=== PATIENT | female | born 1940 | race Caucasian/White ===

== ENCOUNTER → 2016-10-10 | Day surgery (SDC) | payer OTHER ==
[~2016-10-10] MED LIST: AMOX500T2 PO; ASPI325T10 OR; AUGM500T7 PO; BACITRACIN IM FOR SOLN 50,000 UNIT VIAL ONE; BUPIVACAINE HCL PF 0.75% 30 ML VIAL ONE; CALC1TAB12 PO; CALCTAB23 PO; CHOL20005 PO; CLOP75 PO; DOXY100C PO; ENBR50IN3 SC; GENTAMICIN SULFATE 80 MG/2 ML VIAL ONE; HYDR12.56 PO; HYDROCODONE 5/500 PO; LACTATED RINGER'S 1000 ML INJ 1,000 ML ONE; LEFL10TA PO; LEFL20TA11 PO; LEVO100T4 PO; LEVO75TA3 PO; LIDOCAINE 1.5%/EPINEPHrine 1:200,000 PF SOLN 30 ML AMP ONE; LIPI40TA PO; METO25 PO; METO25TA3 PO; MIDAZOLAM HCL 5 MG/ML VIAL (1 ML) ONE; ONCETAB7; PLAV75TA29 PO; PROPOFOL 200 MG/20 ML AMP IV ONE; PROT40TA PO; SODIUM CHLORIDE 0.9% 20 ML VIAL ONE; SUCR1TAB PO; TAB-TAB PO; VITA-13 PO; VITA10002 PO; ZOLP5TAB3 PO; ceFAZolin INJ 1,000 MG VIAL ONE
--- NOTE | 2016-10-10 08:34 | TN ---
cc: SANDRA HALL M.D. DATE OF SURGERY: 10/10/2016 PREOPERATIVE DIAGNOSIS 1. Right shoulder rotator cuff tendon tear. 2. Right shoulder impingement syndrome, type II acromion. 3. Right shoulder osteoarthritis of acromioclavicular joint. POSTOPERATIVE DIAGNOSIS 1. Right shoulder rotator cuff tendon tear. 2. Right shoulder impingement syndrome, type II acromion. 3. Right shoulder osteoarthritis of acromioclavicular joint. PROCEDURE 1. Right shoulder rotator cuff tendon repair. 2. Neer decompressive acromioplasty. 3. Excision coracoacromial ligament. 4. Resection acromioclavicular joint. SURGEON Arely Hall MD ASSESSMENT Gwen Alvarez PA-C SPECIMEN None. ESTIMATED BLOOD LOSS Minimal. COMPLICATIONS None. ANESTHESIA Interscalene block and general. DRAINS None. CONDITION Stable. PLAN OF ACTIVITY Per orders. DETAILS OF PROCEDURE My speech therapy assistant, Gwen Alvarez PA-C, was present for the entire surgical case. She was medically necessary for the entire case because of the complexity of the case and to facilitate the performance of the procedure. The SNOWBOARDER at the back table did not have the skill set in this case to manipulate the instruments, e.g., the multiple different soft tissue retractors and rotator cuff tendon suturing material with assistance. The patient was brought into the operating room, had an interscalene block by Dr. Quezada followed by general anesthesia by Dr. Quezada. The patient was placed in a modified beach-chair position. All pressure points were well-padded. The right shoulder and upper extremity down to including the fingers were prepped and draped in the usual sterile manner. A small anterior exposure to the right anterior shoulder was made. All bleeders were individually coagulated. The tendinous portion of the deltoid was removed off of the acromion. The patient was found to have a type II acromion. With the cervical impingement and osteoarthritis of the acromioclavicular joint, excision of the coracoacromial ligament was performed. An oscillating saw and a bur were then used to perform a Neer decompressive acromioplasty. Resection of the distal clavicle and the AC joint was also performed. With this the patient was found to have satisfactory decompression of the subacromial space. The patient was found to have a longitudinal tear involving the supraspinatus tendon. A [id number] repair was used with multiple #2 Tycron sutures. The wound was irrigated with copious amounts of sterile saline antibiotic solution. The wound itself was dry. The wound was closed in the routine manner. Multiple drill holes were used in the acromion and the tendinous portion of the deltoid repaired back to the acromion using multiple #2 Tycron sutures. The subcutaneous tissue was closure in layers with 2-0 Vicryl. Skin was approximated with running subcuticular 2-0 nylon. Sterile dressings were applied. The patient tolerated the procedure well and arrived in the recovery room in stable and satisfactory condition. MD WILMER Simpson/SILVESTRE /8:13 AM /8:19 AM
== END | disposition home or self-care (01) ==
LOC: ESDC 06:04
PROVIDERS: ATTEND Orthopaedic Surgery Orthopaedic Surgery of the Spine
DX: M75.111 Incomplete rotator cuff tear or rupture of right shoulder, not specified as traumatic (principal); M75.41 Impingement syndrome of right shoulder; M19.011 Primary osteoarthritis, right shoulder
CPT/HCPCS: 00450; 01630; 01991; 23120; 23420; 64417; J0690; J1580; J2250; J7120

== ENCOUNTER 2017-03-20 14:01 | Inpatient (IN) | payer OTHER, MEDICARE ==
[~2017-03-20] VITALS: Ht 160 cm; Wt 67.5 kg
[2017-03-20] VITALS (8 sets, daily range): BP systolic 104–125; BP diastolic 57–79; PULSE 77–98; RESP 16–20; TEMP 98–98.1; O2SAT 92–100
[~2017-03-20 14:01] MED LIST changes: -AMOX500T2 PO; -AUGM500T7 PO; -BACITRACIN IM FOR SOLN 50,000 UNIT VIAL ONE; -BUPIVACAINE HCL PF 0.75% 30 ML VIAL ONE; -CALC1TAB12 PO; -CHOL20005 PO; -DOXY100C PO; -GENTAMICIN SULFATE 80 MG/2 ML VIAL ONE; -LACTATED RINGER'S 1000 ML INJ 1,000 ML ONE; -LEFL20TA11 PO; -LEVO75TA3 PO; -LIDOCAINE 1.5%/EPINEPHrine 1:200,000 PF SOLN 30 ML AMP ONE; -METO25TA3 PO; -MIDAZOLAM HCL 5 MG/ML VIAL (1 ML) ONE; -ONCETAB7; -PLAV75TA29 PO; -PROPOFOL 200 MG/20 ML AMP IV ONE; -SODIUM CHLORIDE 0.9% 20 ML VIAL ONE; -ceFAZolin INJ 1,000 MG VIAL ONE
[2017-03-20] MEDS ORDERED: SODIUM CHLOR 0.9% 1000 ML INJ 1,000 ML IV ONE ×2 (14:45)
[2017-03-20] MEDS ORDERED: AMPICILLIN-SULBACTAM INJ 3 GM in SODIUM CHLORIDE 0.9% INJ 100 ML IV ONE (14:45)
[2017-03-20] MEDS ORDERED: VANCOMYCIN INJ 1,000 MG in SODIUM CHLOR 0.9% 250 ML INJ 250 ML IV ONE (14:45)
[2017-03-20] MEDS ORDERED: LIDOCAINE HCL 1% 50 ML VIAL INFIL ONE (15:00)
[2017-03-20 15:19] LABS: AUTOMATED NEUTROPHIL # 7.2 TH/MM3 (1.8-7.7); BASOPHIL % 0.2 % (0.0-2.0); EOSINOPHIL % 0.2 % (0.0-4.0); HEMATOCRIT 35.6 % (35.0-46.0); LYMPH % 8.4 % (9.0-44.0); LYMPHOCYTE # 0.7 TH/MM3 (1.0-4.8); MEAN CELL VOLUME 104.8 FL (80.0-100.0); MEAN CORPUSCULAR HEMOGLOBIN 36.3 PG (27.0-34.0); MEAN CORPUSCULAR HGB CONC 34.6 % (32.0-36.0); MONO % 2.2 % (0.0-8.0); PLATELET COUNT 158 TH/MM3 (150-450); RED CELL DISTRIBUTION WIDTH 12.5 % (11.6-17.2); WHITE BLOOD COUNT 8.1 TH/MM3 (4.0-11.0)
[2017-03-20 15:29] LABS: CHLORIDE 103 MEQ/L (98-107); POTASSIUM 3.5 MEQ/L (3.5-5.1); SODIUM (NA) 141 MEQ/L (136-145)
[2017-03-20] MEDS ORDERED: TERBUTALINE INJ 1 MG/ML AMP SQ PRN (15:30)
[2017-03-20] MEDS ORDERED: NOREPINEPHRINE-DEXTROSE DRIP 250 ML IV SCH (15:30)
[2017-03-20 15:33] LABS: ANION GAP 12 MEQ/L (5-15); BICARBONATE 26.1 MEQ/L (21.0-32.0); BLOOD UREA NITROGEN 32 MG/DL (7-18)
--- NOTE | 2017-03-20 15:34 | PD ---
HPI Chief Complaint: Bite or Sting Time Seen by Provider: 14:37 Travel History International Travel<30 days: No Contact w/Intl Traveler<30days: No Traveled to known affect area: No History of Present Illness HPI 76-year-old female complains of right leg pain and swelling and redness. Patient states that she got bitten by her cat on the right low leg 3 days ago. Patient states that she noticed the pain swelling and redness on the right leg today. Patient denies any fever chills at home. Patient denies headache. Patient denies any chest pain or shortness of breath. Patient denies abdominal pain. Patient denies any focal weakness or numbness of extremity. Patient has history of peripheral vascular disease, type 2 diabetes diet controlled, hypertension. Patient also has history of hyperlipidemia, hypothyroidism, GERD , chronic anemia, rheumatoid arthritis. She is status post right fem pop bypass , hysterectomy, knee surgery, ankle surgery shoulder surgery and adrenal gland removed. PFSH Past Medical History Arthritis: Yes Asthma: No Autoimmune Disease: Yes (RA) Blood Disorders: No Anxiety: Yes Depression: No Cancer: No Cardiovascular Problems: No (HIGH CHOLESTEROL) High Cholesterol: Yes Chemotherapy: No Chest Pain: No Congestive Heart Failure: No COPD: No Cerebrovascular Accident: No Diabetes: Yes (TYPE II) Diminished Hearing: No Endocrine: Yes GERD: Yes Glaucoma: No Genitourinary: No Headaches: No Hepatitis: No Hiatal Hernia: No Hypertension: Yes Immune Disorder: No Kidney Stones: No Musculoskeletal: Yes (OA AND RA, BACK PAIN) Neurologic: No (TRANSIENT NUMBNESS RIGHT LEG) Psychiatric: Yes (CLAUSTRAPHOBIA) Reproductive: No Respiratory: No Migraines: No Myocardial Infarction: No Radiation Therapy: No Renal Failure: No Seizures: No Sleep Apnea: No Thyroid Disease: Yes Ulcer: Yes ?: Not Past Surgical History Abdominal Surgery: Yes AICD: No Arteriovenous Shunt: No Body Medical Devices: RIGHT ANKLE HARDWARE Cardiac Surgery: Yes (RIGHT LEG VEINS) Ear Surgery: No Endocrine Surgery: Yes (LEFT ADRENALECTOMY) Eye Surgery: Yes (CLAUDIA. CATARACT EXTRACT.) Genitourinary Surgery: No Gynecologic Surgery: Yes (HYSTERECTOMY ) Hysterectomy: Yes Insulin Pump: No Joint Replacement: Yes (LEFT SHOULDER) Oral Surgery: No Pacemaker: No Thoracic Surgery: No Other Surgery: Yes Social History Alcohol Use: No Tobacco Use: No Substance Use: No Allergies-Medications (Allergen,Severity, Reaction): Coded Allergies: Lisinopril (Verified Allergy, Severe, ANGIOEDEMA, 03/20/17) Shellfish (Verified Allergy, Severe, Edema, 03/20/17) Reported Meds & Prescriptions Reported Meds & Active Scripts Active Reported Zolpidem (Zolpidem Tartrate) 5 Mg Tab 5 Mg PO HS PRN Sucralfate 1 Gm Tab 1 Gm PO QID on empty stomach Once Daily (Multivitamin) 1 Each Tablet Protonix (Pantoprazole Sodium) 40 Mg Tab 40 Mg PO BID Hydrochlorothiazide 12.5 Mg Tab 12.5 Mg PO DAILY Metoprolol Tartrate 25 Mg Tab 12.5 Mg PO BID Levothyroxine (Levothyroxine Sodium) 75 Mcg Tab 75 Mcg PO DAILY Leflunomide 10 Mg Tab 10 Mg PO DAILY D3 Super Strength (Cholecalciferol) 2,000 Unit Cap 2,000 Units PO DAILY Calcium 500 +D (Calcium Carbonate-Cholecalciferol) 500-400 Mg-Unit Tab 1 Tab PO DAILY Lipitor (Atorvastatin Calcium) 40 Mg Tab 40 Mg PO HS Plavix (Clopidogrel Bisulfate) 75 Mg Tab 75 Mg PO DAILY [Hydrocodone 5/500] 1 Tab PO PRN Review of Systems General / Constitutional: No: Fever Eyes: No: Visual changes HENT: No: Headaches Cardiovascular: No: Chest Pain or Discomfort Respiratory: No: Shortness of Breath Gastrointestinal: No: Abdominal Pain Genitourinary: No: Dysuria Musculoskeletal: Positive: Pain Skin: No Rash Neurologic: No: Weakness Psychiatric: No: Depression Endocrine: No: Polydipsia Hematologic/Lymphatic: No: Easy Bruising Physical Exam Narrative GENERAL: Well-nourished, well-developed patient. SKIN: Focused skin assessment warm/dry. HEAD: Normocephalic. EYES: No scleral icterus. No injection or drainage. NECK: Supple, trachea midline. No JVD or lymphadenopathy. CARDIOVASCULAR: Regular rate and rhythm without murmurs, gallops, or rubs. RESPIRATORY: Breath sounds equal bilaterally. No accessory muscle use. GASTROINTESTINAL: Abdomen soft, non-tender, nondistended. MUSCULOSKELETAL: Patient has redness swelling tenderness extending from the toes to right groin area with some redness on the right low quadrant of the abdomen and right pubic area. No crepitus no induration noted. BACK: Nontender without obvious deformity. No CVA tenderness. Neurologic exam: Patient's awake alert oriented 3. Patient moves all extremities well. No obvious focal neurological deficit. Data Data Last Documented VS Vital Signs Date Time Temp Pulse Resp B/P Pulse Ox O2 Delivery O2 Flow Rate FiO2 03/20/17 15:29 18 99 Nasal Cannula 2 03/20/17 14:56 82 125/68 03/20/17 14:16 98.0 Orders Electrocardiogram (03/20/17 14:37) Complete Blood Count With Diff (03/20/17 14:37) Comprehensive Metabolic Panel (03/20/17 14:37) Prothrombin Time / Inr (Pt) (03/20/17 14:37) Act Partial Throm Time (Ptt) (03/20/17 14:37) Blood Culture (03/20/17 14:37) Urinalysis - C+S If Indicated (03/20/17 14:37) Chest, Single Ap (03/20/17 14:37) Iv Access Insert/Monitor (03/20/17 14:37) Ecg Monitoring (03/20/17 14:37) Oximetry (03/20/17 14:37) Lactic Acid (03/20/17 14:37) Sodium Chlor 0.9% 1000 Ml Inj (Ns 1000 M (03/20/17 14:45) Sodium Chlor 0.9% 1000 Ml Inj (Ns 1000 M (03/20/17 14:45) Ampicillin-Sulbactam Inj (Unasyn Inj) (03/20/17 14:45) Vancomycin Inj (Vancomycin Inj) (03/20/17 14:45) Lidocaine 1% Inj (50 Ml) (Xylocaine 1% I (03/20/17 15:00) Norepinephrine-Dextrose Drip (Levophed-D (03/20/17 15:30) Terbutaline Inj (Brethine Inj) (03/20/17 15:30) Lactic Acid Sepsis Protocol (03/20/17 15:20) Admit Order (Ed Use Only) (03/20/17 15:34) Labs Laboratory Tests Test 03/20/17 15:05 White Blood Count 8.1 TH/MM3 Red Blood Count 3.40 MIL/MM3 Hemoglobin 12.3 GM/DL Hematocrit 35.6 % Mean Corpuscular Volume 104.8 FL Mean Corpuscular Hemoglobin 36.3 PG Mean Corpuscular Hemoglobin 34.6 % Concent Red Cell Distribution Width 12.5 % Platelet Count 158 TH/MM3 Mean Platelet Volume 8.6 FL Neutrophils (%) (Auto) 89.0 % Lymphocytes (%) (Auto) 8.4 % Monocytes (%) (Auto) 2.2 % Eosinophils (%) (Auto) 0.2 % Basophils (%) (Auto) 0.2 % Neutrophils # (Auto) 7.2 TH/MM3 Lymphocytes # (Auto) 0.7 TH/MM3 Monocytes # (Auto) 0.2 TH/MM3 Eosinophils # (Auto) 0.0 TH/MM3 Basophils # (Auto) 0.0 TH/MM3 CBC Comment DIFF FINAL Differential Comment Prothrombin Time 10.7 SEC Prothromb Time International 1.0 RATIO Ratio Activated Partial 18.8 SEC Thromboplast Time Sodium Level 141 MEQ/L Potassium Level 3.5 MEQ/L Chloride Level 103 MEQ/L Carbon Dioxide Level 26.1 MEQ/L Anion Gap 12 MEQ/L Blood Urea Nitrogen 32 MG/DL Creatinine 1.20 MG/DL Estimat Glomerular Filtration 44 ML/MIN Rate Random Glucose 146 MG/DL Lactic Acid Level 2.1 mmol/L Calcium Level 9.0 MG/DL Total Bilirubin 0.6 MG/DL Aspartate Amino Transf 22 U/L (AST/SGOT) Alanine Aminotransferase 25 U/L (ALT/SGPT) Alkaline Phosphatase 64 U/L Total Protein 5.8 GM/DL Albumin 3.5 GM/DL MDM Medical Decision Making Medical Screen Exam Complete: Yes Emergency Medical Condition: Yes Differential Diagnosis Differential diagnosis including sepsis, cellulitis, abscess, necrotizing fasciitis. Narrative Course 76-year-old female with redness swelling tenderness right leg. Status post cat bite 3 days ago. Patient is septic. Normal saline solution 2 L IV bolus. Vancomycin 1 g IV. Unasyn 3 g IV. Critical Care Narrative Aggregate critical care time was 60 minutes. Time to perform other separately billable procedures was not included in the critical care time. My time did not include minutes spent treating any other patients simultaneously or on activities that did not directly contribute to the patient's treatment. The services I provided to this patient were to treat and/or prevent clinically significant deterioration that could result in: I provided critical care services requiring my management, as noted below: Chart data review, documentation time, medication orders and management, vital sign assessments/reviewing monitor data, ordering and reviewing lab tests, ordering and interpreting/reviewing x-rays and diagnostic studies, care of the patient and discussion of the patient with the admitting physicians. Procedures Procedure Narrative CENTRAL VENOUS LINE: The site was prepped with Betadine and sterilely draped. It was infiltrated with 1% lidocaine plain. The deep vein was cannulated using normal Seldinger technique. A triple lumen central line was placed in the [ left femoral vein site and secured with simple interrupted suture. The site was sterilely dressed. The patient tolerated the procedure well. Diagnosis Primary Impression: Severe sepsis Additional Impression: Cellulitis of right leg Admitting Information Admitting Physician Requests: Admit Blake Lehman MD Mar 20, 2017 15:34
[2017-03-20 15:36] LABS: ALT (GPT) 25 U/L (10-53); AST (GOT) 22 U/L (15-37); GLOMERULAR FILTRATION RATE 44 ML/MIN (>89)
[2017-03-20 15:38] LABS: TOTAL BILIRUBIN ADULT 0.6 MG/DL (0.2-1.0)
[2017-03-20 15:39] LABS: ALKALINE PHOSPHATASE 64 U/L (45-117)
[2017-03-20 15:42] LABS: HEMO FLAGS DIFF FINAL
[2017-03-20] MEDS ORDERED: PLAV75TA29 PO (15:42)
[2017-03-20] MEDS ORDERED: LIPI40TA PO (15:42)
[2017-03-20] MEDS ORDERED: PROT40TA PO (15:42)
[2017-03-20] MEDS ORDERED: CHOL20005 PO (15:42)
[2017-03-20] MEDS ORDERED: LEVO75TA3 PO (15:42)
[2017-03-20] MEDS ORDERED: SUCR1TAB PO (15:42)
[2017-03-20] MEDS ORDERED: ONCETAB7 (15:42)
[2017-03-20] MEDS ORDERED: LEFL20TA11 PO (15:42)
[2017-03-20] MEDS ORDERED: CALC1TAB12 PO (15:42)
[2017-03-20] MEDS ORDERED: HYDR12.56 PO (15:42)
[2017-03-20] MEDS ORDERED: METO25TA3 PO (15:42)
[2017-03-20] MEDS ORDERED: ZOLP5TAB3 PO (15:42)
--- NOTE | 2017-03-20 16:05 | RADHPO ---
EXAM DATE/TIME: 03/20/2017 15:35 [facility] COMPARISON: CHEST SINGLE AP, February 17, 2015, 11:50. INDICATIONS : Patient was bitten by her cat two days ago and has right leg and ankle pain. Patient is stating short ness of breath also. MEDICAL HISTORY : None. SURGICAL HISTORY : None. ENCOUNTER: Initial ACUITY: 2 days PAIN SCORE: 10/10 LOCATION: Right Leg and ankle. FINDINGS: A single view of the chest demonstrates the lungs to be symmetrically aerated without evidence of mas s, infiltrate or effusion. The cardiomediastinal contours are unremarkable. Redemonstration of left shoulder arthroplasty. Bony thorax otherwise intact. CONCLUSION: 1. No acute cardiopulmonary disease. Tommy Schuster MD on March 20, 2017 at 16:02 Board Certified Radiologist. This report was verified electronically.
[2017-03-20 16:06] LABS: APTT (PATIENT) 18.8 SEC (24.3-30.1); PROTHROMBIN TIME - PATIENT 10.7 SEC (9.8-11.6)
[2017-03-20 16:53] LABS: BLOOD, URINE NEG (NEG); GLUCOSE,URINE NEG (NEG); KETONE, URINE TRACE mg/dL (NEG); NITRITE,URINE NEG (NEG); PH, URINE 5.5 (5.0-8.5)
[2017-03-20 17:07] LABS: SQUAMOUS EPITHELIAL CELL URINE 0-5 /hpf (0-5); URINE COLOR YELLOW (YELLW/STRAW)
[2017-03-20 17:08] LABS: BACTERIA, URINE MANY /hpf; COMMENT (UR) CULTURE INDICATED; CULTURE IF INDICATED CULTURE INDICATED
[2017-03-20] MEDS: SODIUM CHLOR 0.9% 1000 ML INJ 1,000 ML IV SCH (17:11)
--- NOTE | 2017-03-20 17:11 | HHI.HP ---
[facility] Service Critical Care Medicine Primary Care Physician Non-Staff Admission Diagnosis sepsis. Right leg cellulitis. Diagnosis: Travel History International Travel<30 Days: No Contact w/Intl Traveler <30 Da: No Traveled to Known Affected Are: No History of Present Illness 76-year-old female complains of right leg pain and swelling and redness. Patient states that she got bitten by her cat on the right lower leg 3 days ago. Patient states that she noticed the pain swelling and redness on the right leg today. Patient denies any fever chills at home. Patient denies headache. Patient denies any chest pain or shortness of breath. Patient denies abdominal pain. Patient denies any focal weakness or numbness of extremity. Patient has history of peripheral vascular disease, type 2 diabetes diet controlled, hypertension. Patient also has history of hyperlipidemia, hypothyroidism, GERD, chronic anemia, rheumatoid arthritis. She is status post right fem pop bypass, hysterectomy, knee surgery, ankle surgery shoulder surgery and adrenal gland removal. Upon entering the ED, the patient was noted to have 2+ peripheral edema and hyperemia from the right foot to the right groin femoral area , no lymphadenopathy noted, with extreme tenderness. Critical care medicine was consulted. [facility] Past Medical History Arthritis: Yes Asthma: No Autoimmune Disease: Yes (RA) Blood Disorders: No Anxiety: Yes Depression: No Cancer: No Cardiovascular Problems: No (HIGH CHOLESTEROL) High Cholesterol: Yes Chemotherapy: No Chest Pain: No Congestive Heart Failure: No COPD: No Cerebrovascular Accident: No Diabetes: Yes (TYPE II) Diminished Hearing: No Endocrine: Yes GERD: Yes Glaucoma: No Genitourinary: No Headaches: No Hepatitis: No Hiatal Hernia: No Hypertension: Yes Immune Disorder: No Kidney Stones: No Musculoskeletal: Yes (OA AND RA, BACK PAIN) Neurologic: No (TRANSIENT NUMBNESS RIGHT LEG) Psychiatric: Yes (CLAUSTRAPHOBIA) Reproductive: No Respiratory: No Migraines: No Myocardial Infarction: No Radiation Therapy: No Renal Failure: No Seizures: No Sleep Apnea: No Thyroid Disease: Yes Ulcer: Yes ?: Not Past Surgical History Abdominal Surgery: Yes AICD: No Arteriovenous Shunt: No Body Medical Devices: RIGHT ANKLE HARDWARE Cardiac Surgery: Yes (RIGHT LEG VEINS) Ear Surgery: No Endocrine Surgery: Yes (LEFT ADRENALECTOMY) Eye Surgery: Yes (CLAUDIA. CATARACT EXTRACT.) Genitourinary Surgery: No Gynecologic Surgery: Yes (HYSTERECTOMY ) Hysterectomy: Yes Insulin Pump: No Joint Replacement: Yes (LEFT SHOULDER) Oral Surgery: No Pacemaker: No Thoracic Surgery: No Other Surgery: Yes Social History Alcohol Use: No Tobacco Use: No Substance Use: No Allergies-Medications (Allergen,Severity, Reaction): Coded Allergies: Lisinopril (Verified Allergy, Severe, ANGIOEDEMA, 03/20/17) Shellfish (Verified Allergy, Severe, Edema, 03/20/17) Reported Meds & Prescriptions Reported Meds & Active Scripts Active Reported Zolpidem (Zolpidem Tartrate) 5 Mg Tab 5 Mg PO HS PRN Sucralfate 1 Gm Tab 1 Gm PO QID on empty stomach Once Daily (Multivitamin) 1 Each Tablet Protonix (Pantoprazole Sodium) 40 Mg Tab 40 Mg PO BID Hydrochlorothiazide 12.5 Mg Tab 12.5 Mg PO DAILY Metoprolol Tartrate 25 Mg Tab 12.5 Mg PO BID Levothyroxine (Levothyroxine Sodium) 75 Mcg Tab 75 Mcg PO DAILY Leflunomide 10 Mg Tab 10 Mg PO DAILY D3 Super Strength (Cholecalciferol) 2,000 Unit Cap 2,000 Units PO DAILY Calcium 500 +D (Calcium Carbonate-Cholecalciferol) 500-400 Mg-Unit Tab 1 Tab PO DAILY Lipitor (Atorvastatin Calcium) 40 Mg Tab 40 Mg PO HS Plavix (Clopidogrel Bisulfate) 75 Mg Tab 75 Mg PO DAILY [Hydrocodone 5/500] 1 Tab PO PRN Review of Systems General / Constitutional: No: Fever Eyes: No: Visual changes HENT: No: Headaches Cardiovascular: No: Chest Pain or Discomfort Respiratory: No: Shortness of Breath Gastrointestinal: No: Abdominal Pain Genitourinary: No: Dysuria Musculoskeletal: Positive: Pain Skin: No Rash Neurologic: No: Weakness Psychiatric: No: Depression Endocrine: No: Polydipsia Hematologic/Lymphatic: No: Easy Bruising Past Family Social History Allergies: Coded Allergies: Lisinopril (Verified Allergy, Severe, ANGIOEDEMA, 03/20/17) Shellfish (Verified Allergy, Severe, Edema, 03/20/17) Physical Exam Vital Signs Vital Signs Date Time Temp Pulse Resp B/P Pulse Ox O2 Delivery O2 Flow Rate FiO2 03/20/17 15:45 77 18 124/71 100 Room Air 2 03/20/17 15:29 18 99 Nasal Cannula 2 03/20/17 14:56 82 20 125/68 92 Room Air 03/20/17 14:16 98.0 84 16 117/79 Laboratory Laboratory Tests Test 03/20/17 15:05 White Blood Count 8.1 Red Blood Count 3.40 Hemoglobin 12.3 Hematocrit 35.6 Mean Corpuscular Volume 104.8 Mean Corpuscular Hemoglobin 36.3 Mean Corpuscular Hemoglobin 34.6 Concent Red Cell Distribution Width 12.5 Platelet Count 158 Mean Platelet Volume 8.6 Neutrophils (%) (Auto) 89.0 Lymphocytes (%) (Auto) 8.4 Monocytes (%) (Auto) 2.2 Eosinophils (%) (Auto) 0.2 Basophils (%) (Auto) 0.2 Neutrophils # (Auto) 7.2 Lymphocytes # (Auto) 0.7 Monocytes # (Auto) 0.2 Eosinophils # (Auto) 0.0 Basophils # (Auto) 0.0 CBC Comment DIFF FINAL Differential Comment Prothrombin Time 10.7 Prothromb Time International 1.0 Ratio Activated Partial 18.8 Thromboplast Time Sodium Level 141 Potassium Level 3.5 Chloride Level 103 Carbon Dioxide Level 26.1 Anion Gap 12 Blood Urea Nitrogen 32 Creatinine 1.20 Estimat Glomerular Filtration 44 Rate Random Glucose 146 Lactic Acid Level 2.1 Calcium Level 9.0 Total Bilirubin 0.6 Aspartate Amino Transf 22 (AST/SGOT) Alanine Aminotransferase 25 (ALT/SGPT) Alkaline Phosphatase 64 Total Protein 5.8 Albumin 3.5 Date/Time Procedure Status Source Growth 03/20/17 15:05 Aerobic Blood Culture Received Blood Peripheral Pending 03/20/17 15:05 Anaerobic Blood Culture Received Blood Peripheral Pending Result Diagram: 03/20/17 1505 03/20/17 1505 Imaging Last Impressions Chest X-Ray 03/20/17 1437 Signed Impressions: Service Date/Time: March 15:35 - CONCLUSION: 1. No acute cardiopulmonary disease. Tommy Schuster MD Septic Shock Reassessment Heart: Regular rate and rhythm Lungs: Clear Skin: Warm Peripheral Pulses: Bounding Right Radial Bounding Left Radial Bounding Left Popliteal Assessment and Plan Assessment and Plan Neurologic: Peripheral neuropathy Right lower extremity pain Paresthesias-right lower extremity Chronic back pain Osteoarthritis Rheumatoid arthritis Scoliosis GCS 15 Continue hydrocodone 5/325 Continue Leflunomide Dilaudid 1 mg every 4 hours PRN for breakthrough pain Respiratory: History of tobacco abuse COPD Maintain O2 sat greater than 92%, patient currently on O2 at 2 L nasal cannula, continue to wean Duo nebs every 4 hours PRN wheezing 03/20 chest x-ray-no acute process Cardiovascular: Peripheral vascular disease Status post bypass left lower extremity Hypertension Maintain MAP greater than 65 mmHg, norepinephrine for vasopressors support if indicated Continue home medication Plavix, and atorvastatin Continue home med hydrochlorothiazide and metoprolol Renal: Renal insufficiency Patient bolused with 2 L IV fluid normal saline in the ED Maintenance fluid normal saline 125/hour Creatinine 1.2, GFR 44 Insert Wells -- Strict I/Os FEN/GI: GERD Hyperlipidemia Monitor BMP Maintain NPO status tonight Bowel regimen Zofran for nausea Obtain LFTs Heme/ID: Severe sepsis Right lower extremity cellulitis Cat bite right lower extremity Obtain blood cultures 2 ID consult Patient received 1 g vancomycin, 3 g Unasyn in the ED Patient placed on vancomycin and levofloxacin Endocrine: Diabetes mellitus type 2 Hypothyroidism Continue Synthroid 75 mcgs/day Glucose monitoring per ICU protocol Low dose sliding scale regimen -- SSI Prophylaxis: GI Prophylaxis Protonix DVT Prophylaxis -- SCDs left leg Heparin BID Lines: Left femoral CVL (day 1), peripheral IVs 2 Dispo: This patient remains critically ill with one or more organ systems which are or may become a threat to life. I have spent in excess of 35 minutes discontinuously in the care and management of this patient. This time is exclusive of procedures, and includes, but is not limited to, evaluation of the patient, review of the medical record, discussions with family, consultants, nursing staff, or respiratory therapy, and documentation in the medical record. Code Status Full Discussed Condition With Dr. Lehman, ED physician, ED RN, patient and family at bedside. Halima Thompson MD Mar 20, 2017 17:10
[2017-03-20] MEDS ORDERED: MAGNESIUM HYDROXIDE SUSP 30 ML CUP PO PRN (17:15)
[2017-03-20] MEDS ORDERED: MISCELLANEOUS NURSING INFORMATION XX SCH (17:15)
[2017-03-20] MEDS ORDERED: BISACODYL 10 MG SUPP RECTAL PRN (17:15)
[2017-03-20] MEDS ORDERED: Vancomycin Consult Pharmacy 1 EA OTHER SCH (17:15)
[2017-03-20] MEDS ORDERED: CHLORHEXIDINE GLUCONATE 2 % 1 PACK (2 CLOTHS) TOP PRN (17:15)
[2017-03-20] MEDS ORDERED: DEXTROSE 50% IN WATER 50 ML VIAL(D50) IV PRN (17:15)
[2017-03-20] MEDS ORDERED: SODIUM CHLORIDE 0.9% FLUSH 10 ML FLUSH IV FLUSH PRN ×2 (17:15)
[2017-03-20] MEDS ORDERED: GLUCAGON 1 MG/ML VIAL OTHER PRN (17:15)
[2017-03-20] MEDS ORDERED: SENNOSIDES 8.6 MG TAB PO PRN (17:15)
[2017-03-20] MEDS ORDERED: ACETAMINOPHEN 325 MG TAB PO PRN (17:15)
[2017-03-20] MEDS ORDERED: RESP: ALBUTEROL 2.5 MG/IPRATROPIUM 0.5 MG NEB (PRN) INH (17:15)
[2017-03-20] MEDS ORDERED: ACETAMINOPHEN/HYDROcodone 325 MG/5 MG TAB PO PRN (18:00)
[2017-03-20] MEDS ORDERED: PILL SPLITTER OTHER PRN (18:00)
[2017-03-20 18:21] LABS: TOTAL BILIRUBIN ADULT 0.6 MG/DL (0.2-1.0)
[2017-03-20] MEDS: HEPARIN SODIUM - SQ 10,000 UNITS/ML VIAL SQ SCH (18:24)
[2017-03-20] MEDS: LEVOFLOXACIN 750 MG PREMIX INJ 150 ML IV SCH (18:24)
[2017-03-20 18:25] LABS: INDIRECT BILIRUBIN 0.4 MG/DL (0.0-0.8)
[2017-03-20] MEDS: HYDROmorphone HCL PF 1 MG/ML VIAL IV PRN ×2 (18:25→23:14)
[2017-03-20 18:28] LABS: LACTIC ACID GHOST NOT REPORTABLE
[2017-03-20] MEDS: ONDANSETRON HCL 4 MG/2 ML VIAL IV PRN (18:32)
[2017-03-20] MEDS: ATORVASTATIN 40 MG TAB PO SCH (20:02)
[2017-03-20] MEDS: DOCUSATE SODIUM 50 MG/SENNA 8.6 MG TAB PO SCH (20:03)
[2017-03-20] MEDS: SODIUM CHLORIDE 0.9% FLUSH 10 ML FLUSH IV FLUSH SCH (20:03)
[2017-03-20] MEDS: METOPROLOL TARTRATE 25 MG TAB PO SCH (20:03)
[2017-03-20] MEDS ORDERED: ZOLPIDEM TARTRATE 5 MG TAB PO PRN (20:30)
[2017-03-20] MEDS ORDERED: SODIUM CHLORIDE 0.9% FLUSH 10 ML FLUSH IV FLUSH SCH (21:00)
[2017-03-21] VITALS (13 sets, daily range): BP systolic 103–149; BP diastolic 51–66; PULSE 77–96; RESP 16–20; TEMP 95.8–98.6; O2SAT 89–100
[2017-03-21] MEDS: SODIUM CHLOR 0.9% 1000 ML INJ 1,000 ML IV SCH ×2 (01:11→09:11)
[2017-03-21] MEDS: CHLORHEXIDINE GLUCONATE 2 % 1 PACK (2 CLOTHS) TOP SCH (01:28)
[2017-03-21] MEDS: HYDROmorphone HCL PF 1 MG/ML VIAL IV PRN ×4 (05:08→22:09)
[2017-03-21] MEDS: LEVOTHYROXINE SODIUM 75 MCG TAB PO SCH (05:08)
[2017-03-21] MEDS: HEPARIN SODIUM - SQ 10,000 UNITS/ML VIAL SQ SCH ×2 (05:08→17:38)
[2017-03-21] MEDS: DOCUSATE SODIUM 50 MG/SENNA 8.6 MG TAB PO SCH ×2 (09:00→21:00)
[2017-03-21] MEDS: PANTOPRAZOLE SODIUM 40 MG VIAL IV SCH (09:23)
[2017-03-21] MEDS: METOPROLOL TARTRATE 25 MG TAB PO SCH ×2 (09:24→22:09)
[2017-03-21] MEDS: LEFLUNOMIDE 20 MG TAB PO SCH (09:24)
[2017-03-21] MEDS: HYDROCHLOROTHIAZIDE 12.5 MG CAP PO SCH (09:24)
[2017-03-21] MEDS: SODIUM CHLORIDE 0.9% FLUSH 10 ML FLUSH IV FLUSH SCH ×2 (09:25→21:00)
[2017-03-21] MEDS: CLOPIDOGREL 75 MG TAB PO SCH (09:25)
--- NOTE | 2017-03-21 12:10 | HHI.CCPN ---
Subjective Remarks/Hospital Course 76-year-old female complains of right leg pain and swelling and redness. Patient states that she got bitten by her cat on the right lower leg 3 days ago. Patient states that she noticed the pain swelling and redness on the right leg today. Patient denies any fever chills at home. Patient denies headache. Patient denies any chest pain or shortness of breath. Patient denies abdominal pain. Patient denies any focal weakness or numbness of extremity. Patient has history of peripheral vascular disease, type 2 diabetes diet controlled, hypertension. Patient also has history of hyperlipidemia, hypothyroidism, GERD, chronic anemia, rheumatoid arthritis. She is status post right fem pop bypass, hysterectomy, knee surgery, ankle surgery shoulder surgery and adrenal gland removal. Upon entering the ED, the patient was noted to have 2+ peripheral edema and hyperemia from the right foot to the right groin femoral area , no lymphadenopathy noted, with extreme tenderness. Critical care medicine was consulted. Subjective: 03/21: Afebrile .No acute issues overnight. Edema and erythema is significantly diminished from presentation yesterday. Erythema confined to right foot and ankle area .Pain well controlled. Objective Vital Signs Date Time Temp Pulse Resp B/P Pulse Ox O2 Delivery O2 Flow Rate FiO2 03/21/17 08:40 97 Nasal Cannula 2.00 03/21/17 06:44 20 03/21/17 06:00 87 03/21/17 04:00 98.5 134/61 Intake and Output 03/20/17 03/20/17 03/20/17 07:59 15:59 23:59 Intake Total 833 ml Output Total 450 ml Balance 383 ml Result Diagram: 03/20/17 1505 03/20/17 1505 Imaging Last Impressions Chest X-Ray 03/20/17 1437 Signed Impressions: Service Date/Time: March 15:35 - CONCLUSION: 1. No acute cardiopulmonary disease. Tommy Schuster MD Objective Remarks GENERAL: This is a well-developed well-nourished female in no apparent distress SKIN: Warm and dry. Erythematous area right ankle and foot HEAD: Atraumatic. Normocephalic. EYES: Pupils equal and round. No scleral icterus. No injection or drainage. ENT: No nasal bleeding or discharge. Mucous membranes pink and moist. NECK: Trachea midline. No JVD. CARDIOVASCULAR: Normal rate, regular rhythm. RESPIRATORY: No accessory muscle use. Clear to auscultation. Breath sounds equal bilaterally. On room air. GASTROINTESTINAL: Abdomen soft, non-tender, nondistended. No guarding. MUSCULOSKELETAL: Extremities without clubbing, cyanosis. Edema noted right foot and ankle. No obvious deformities. NEUROLOGICAL: Awake and alert. RASS 0. No gross focal/sensory deficits. Follows commands in all 4 extremities. Urinary Catheter: Yes Assessment to: Remove Date of Insertion: Mar 20, 2017 Date of Removal: Mar 21, 2017 Vascular Central Line Catheter: Yes Assessment to: Remove Date of Insertion: Mar 20, 2017 Date of Removal: Mar 21, 2017 Line: Central Venous Catheter Side: Right Location: Femoral A/P Assessment and Plan Neurologic: Peripheral neuropathy Right lower extremity pain Paresthesias-right lower extremity Chronic back pain Osteoarthritis Rheumatoid arthritis Scoliosis GCS 15 Continue hydrocodone 5/325 every 6 hours when necessary Continue Leflunomide for rheumatoid arthritis Dilaudid 1 mg every 6 hours PRN for breakthrough pain Respiratory: History of tobacco abuse COPD Maintain O2 sat greater than 92%, Duo nebs every 4 hours PRN wheezing 03/20 chest x-ray-no acute process Cardiovascular: Peripheral vascular disease Status post bypass left lower extremity Hypertension Maintain MAP greater than 65 mmHg, norepinephrine for vasopressors support if indicated Continue home medication Plavix, and atorvastatin Resume home med hydrochlorothiazide and metoprolol Renal: Renal insufficiency Patient bolused with 2 L IV fluid normal saline in the ED Maintenance fluid normal saline 125/hour Creatinine 1.2, GFR 44 Discontinue Wells catheter -- Strict I/Os FEN/GI: GERD Hyperlipidemia Monitor BMP ADA 2200-calorie diet Bowel regimen Zofran for nausea Heme/ID: Severe sepsis Right lower extremity cellulitis Cat bite right lower extremity 03/19: Blood cultures 2-NGTD ID consult-appreciate recommendations Patient received on 03/19 -1 g vancomycin, 3 g Unasyn in the ED Vancomycin and Levofloxacin (day 2) Endocrine: Diabetes mellitus type 2 Hypothyroidism Continue Synthroid 75 mcgs/day Glucose monitoring Low dose sliding scale regimen -- SSI Prophylaxis: GI Prophylaxis Protonix DVT Prophylaxis -- SCDs left leg Heparin BID Lines: Left femoral CVL (day 2) to be discontinued, peripheral IVs 2 Dispo: Discussed with patient and MDS NURSE at bedside. Attempted to call daughter Robyn yury [phone] to update on medical status unsuccessful. Planned transfer to [facility] in a.m.. Plan transfer to floor. Physician Halima Encarnacion MD Mar 21, 2017 12:10
[2017-03-21] MEDS: ONDANSETRON HCL 4 MG/2 ML VIAL IV PRN (13:13)
[2017-03-21] MEDS ORDERED: VANCOMYCIN 1,000 MG/NS 250 ML IV SCH ×2 (16:00)
--- NOTE | 2017-03-21 17:14 | PD.ID.CON ---
History of Present Illness Service ID Consult Requested By Dr Thompson Reason for Consult RLE cellulitis Primary Care Physician Non-Staff Diagnoses: History of Present Illness Pt is a 76 yo female with h/o PVD and RLE periferal bypase (morongo) developped swelling rapidly spereading redess and pain in the RLE started 24 hrs after her cat bit her to the ankle She also developped subjective fevef at home Pt was admitted to ICU, started on broad spectrum abcx and rapidly improved Pt noteced marked improvement as soon as abx strarted She is also growing GNB in the urine clx Review of Systems Except as stated in HPI: all other systems reviewed are Neg Past Family Social History Allergies: Coded Allergies: Lisinopril (Verified Allergy, Severe, ANGIOEDEMA, 03/20/17) Shellfish (Verified Allergy, Severe, Edema, 03/20/17) Past Medical History peripheral vascular disease, type 2 diabetes diet controlled, hypertension hyperlipidemia, hypothyroidism, GERD, chronic anemia, rheumatoid arthritis Past Surgical History right fem pop bypass, hysterectomy, knee surgery, ankle surgery shoulder surgery adrenal gland removal. Active Ordered Medications Medications where reviewed in EMR Antibiotics Include: levaquine vancomycin Family History Non-Contributory. Social History remote Tobacco. No ETOH. No Illicit Drugs. Physical Exam Vital Signs Vital Signs Date Time Temp Pulse Resp B/P Pulse Ox O2 Delivery O2 Flow Rate FiO2 03/21/17 12:00 77 03/21/17 12:00 98.5 77 103/51 89 03/21/17 11:48 12 03/21/17 11:00 80 03/21/17 10:00 83 03/21/17 09:00 85 03/21/17 08:40 97 Nasal Cannula 2.00 03/21/17 08:00 98.3 90 113/56 97 03/21/17 08:00 90 03/21/17 06:00 87 03/21/17 04:00 96 03/21/17 04:00 98.5 95 20 134/61 100 03/21/17 02:00 92 03/21/17 00:00 98.6 94 20 105/53 96 03/21/17 00:00 94 03/20/17 22:02 100 Nasal Cannula 2.00 03/20/17 22:00 97 03/20/17 20:00 98.1 96 20 114/57 95 03/20/17 20:00 98 Physical Exam CONSTITUTIONAL/GENERAL: This is an adequately nourished patient, in no apparent distress. TUBES/LINES/DRAINS: SKIN: No jaundice, rashes, or lesions.Skin temperature appropriate. Not diaphoretic. Edema erythema of RLE stating from the foot and spereading to the kbee Erythema is mild, appears residual, most of erythema is on medial ankle The are also 2 small wounds there cw animal bite Well healed scar of RLE cw past surg hx HEAD: Atraumatic. Normocephalic. EYES: Pupils equal and round and reactive. Extraocular motions intact. No scleral icterus. No injection or drainage. Fundi not examined. ENT: Hearing grossly normal. Nose without bleeding or purulent drainage. Throat without visible erythema, exudates, masses, or lesions. NECK: Trachea midline. Supple, nontender. CARDIOVASCULAR: Regular rate and rhythm 3/6 holocystolic murmur, no gallops, or rubs. No JVD. Peripheral pulses symmetric. RESPIRATORY/CHEST: Symmetric, unlabored respirations. Clear to auscultation. Breath sounds equal bilaterally. No wheezes, rales, or rhonchi. GASTROINTESTINAL: Abdomen soft, non-tender, nondistended. No hepato-splenomegaly , or palpable masses. No guarding. Bowel sounds present. GENITOURINARY: Without palpable bladder distension. MUSCULOSKELETAL: Extremities without clubbing, cyanosis, + RLE edema, erythema. No joint tenderness or effusion noted. No calf tenderness. No mottling or clubbing. LYMPHATICS: No palpable cervical or supraclavicular adenopathy. NEUROLOGICAL: Awake and alert. Motor and sensory grossly within normal limits. Follows commands. Clear speech. Moves all extremities. PSYCHIATRIC: No obvious anxiety/depression. no apparent hallucinations or other psychotic thought process. Laboratory Laboratory Tests Test 03/20/17 19:25 Lactic Acid Level 1.1 Date/Time Procedure Status Source Growth 03/20/17 16:30 Urine Culture - Preliminary Resulted Urine Clean Catch Gram Negative Rg 03/20/17 15:05 Aerobic Blood Culture - Preliminary Resulted Blood Peripheral NO GROWTH IN 1 DAY 03/20/17 15:05 Anaerobic Blood Culture - Preliminary Resulted Blood Peripheral NO GROWTH IN 1 DAY Result Diagram: 03/20/17 1505 03/20/17 1505 Imaging Last Impressions Chest X-Ray 03/20/17 1437 Signed Impressions: Service Date/Time: March 15:35 - CONCLUSION: 1. No acute cardiopulmonary disease. Tommy Schuster MD Assessment and Plan Assessment and Plan RLE cellulitis, severe, following cat bite - cat is in-door, up to date on shots - possible cuprit org include streptococci, miya GAS, pausterlla, capnocytophaga, MSSA and less likely MRSa - PVD is predisposing condition - rapid improvement on current abx choice Improved on empiric abx blood clx negative - cont current abx - fu blood and urine clx Madie Dawson MD Mar 21, 2017 17:14
[2017-03-21] MEDS: LEVOFLOXACIN 750 MG PREMIX INJ 150 ML IV SCH (17:38)
[2017-03-21] MEDS: ATORVASTATIN 40 MG TAB PO SCH (22:09)
--- NOTE | 2017-03-21 22:48 | EKG ---
Date Performed: 03/20/2017 Time Performed: 15:30:34 PTAGE: 76 years EKG: Sinus rhythm NORMAL ECG PREVIOUS TRACING : 02/17/2015 18.45 DOCTOR: Mindy Romero Interpretating Date/Time 03/21/2017 22:45:44
[2017-03-22] VITALS: BP 114/54; PULSE 93; RESP 18; TEMP 98.7; O2SAT 94
[2017-03-22 04:00] VITALS: BP 151/70; PULSE 85; RESP 16; TEMP 97.6; O2SAT 97
[2017-03-22] MEDS: CHLORHEXIDINE GLUCONATE 2 % 1 PACK (2 CLOTHS) TOP SCH (04:00)
[2017-03-22] MEDS: LEVOTHYROXINE SODIUM 75 MCG TAB PO SCH (05:38)
[2017-03-22] MEDS: HEPARIN SODIUM - SQ 10,000 UNITS/ML VIAL SQ SCH (05:38)
[2017-03-22] MEDS: HYDROmorphone HCL PF 1 MG/ML VIAL IV PRN (05:45)
[2017-03-22 05:56] LABS: BICARBONATE 23.3 MEQ/L (21.0-32.0); POTASSIUM 3.5 MEQ/L (3.5-5.1)
[2017-03-22 06:09] LABS: HEMATOCRIT 33.1 % (35.0-46.0); MEAN CELL VOLUME 106.8 FL (80.0-100.0); MEAN CORPUSCULAR HEMOGLOBIN 36.2 PG (27.0-34.0); MEAN CORPUSCULAR HGB CONC 33.9 % (32.0-36.0); PLATELET COUNT 120 TH/MM3 (150-450); RED CELL DISTRIBUTION WIDTH 13.2 % (11.6-17.2); REVIEW FLAG FINAL; WHITE BLOOD COUNT 13.2 TH/MM3 (4.0-11.0)
[2017-03-22 08:00] VITALS: BP 121/56; PULSE 90; PULSE 91; RESP 16; TEMP 97.5; O2SAT 90
[2017-03-22] MEDS: ONDANSETRON HCL 4 MG/2 ML VIAL IV PRN (08:37)
[2017-03-22] MEDS: LEFLUNOMIDE 20 MG TAB PO SCH (08:41)
[2017-03-22] MEDS: SODIUM CHLORIDE 0.9% FLUSH 10 ML FLUSH IV FLUSH SCH (08:41)
[2017-03-22] MEDS: CLOPIDOGREL 75 MG TAB PO SCH (08:43)
[2017-03-22] MEDS: METOPROLOL TARTRATE 25 MG TAB PO SCH (08:43)
[2017-03-22] MEDS: DOCUSATE SODIUM 50 MG/SENNA 8.6 MG TAB PO SCH (08:44)
[2017-03-22] MEDS: PANTOPRAZOLE SODIUM 40 MG VIAL IV SCH (08:44)
[2017-03-22] MEDS: HYDROCHLOROTHIAZIDE 12.5 MG CAP PO SCH (08:44)
[2017-03-22 08:58] VITALS: O2SAT 94
--- NOTE | 2017-03-22 09:14 | HHI.PR ---
Subjective Remarks f/u for leg cellulitis patient stated cellulitis is a lot better. she is ambulating and stated she wants to go home today. she remains afebrile. her nurse is at the bedside. Objective Vitals Vital Signs Date Time Temp Pulse Resp B/P Pulse Ox O2 Delivery O2 Flow Rate FiO2 03/22/17 08:58 94 21 03/22/17 08:00 97.5 90 16 121/56 90 03/22/17 04:00 97.6 85 16 151/70 97 03/22/17 00:00 98.7 93 18 114/54 94 03/21/17 20:00 98.2 89 16 133/61 98 03/21/17 16:00 96.6 91 17 149/66 93 03/21/17 15:00 95.8 81 20 134/61 94 03/21/17 12:00 77 03/21/17 12:00 98.5 77 103/51 89 03/21/17 11:48 12 03/21/17 11:00 80 03/21/17 10:00 83 I/O 03/21/17 03/21/17 03/21/17 03/22/17 03/22/17 03/22/17 07:00 15:00 23:00 07:00 15:00 23:00 Intake Total 550 ml 392 ml 240 ml Output Total 350 ml Balance 200 ml 392 ml 240 ml Intake Oral 240 ml IV Total 550 ml 392 ml Output Urine Total 350 ml # Voids 4 # Bowel Movements 0 Result Diagram: 03/22/17 04403/22/17 044 Objective Remarks GENERAL: in NAD SKIN: LLE shows improvement of erythema. mild warmth. + pitting edema that has improved. CARDIOVASCULAR: Regular rate and rhythm without murmurs, gallops, or rubs. RESPIRATORY: Breath sounds equal bilaterally. No accessory muscle use. GASTROINTESTINAL: Abdomen soft, non-tender, nondistended. Medications and IVs Current Medications Sodium Chloride 1,000 ml @ 999 mls/hr BOLUS ONCE IV Last administered on 03/20 15:47; Start 03/20/17 at 14:45; Stop 03/20/17 at 15:45; Status DC Sodium Chloride 1,000 ml @ 999 mls/hr BOLUS ONCE IV Last administered on 03/20 16:01; Start 03/20/17 at 14:45; Stop 03/20/17 at 15:45; Status DC Ampicillin Sodium/ Sulbactam Sodium 3 gm/Sodium Chloride 100 ml @ 200 mls/hr ONCE ONCE IV Last administered on 03/20/17 17:03; Start 03/20/17 at 14:45; Stop 03/20/17 at 15:14; Status DC Vancomycin HCl/ Sodium Chloride (Vancomycin Inj/ NS 250 ml Inj) 250 ml @ 250 mls/hr ONCE ONCE IV Last administered on 03/20/17 15:49; Start 03/20/17 at 14 :45; Stop 03/20/17 at 15:44; Status DC Lidocaine HCl 10 ml 10 ml ONCE ONCE INFIL Last administered on 03/20/17 15:48 ; Start 03/20/17 at 15:00; Stop 03/20/17 at 15:01; Status DC Norepinephrine Bitartrate (Levophed-Dextrose Drip) 250 ml @ 0 mls/hr TITRATE IV ; Start 03/20/17 at 15:30 Terbutaline Sulfate (Brethine Inj) 1 mg UNSCH PRN SQ For Extravasation; Start 03/20/17 at 15:30 Sodium Chloride (NS Flush) 2 ml UNSCH PRN IV FLUSH FLUSH AFTER USING IV ACCESS ; Start 03/20/17 at 17:15 Sodium Chloride (NS Flush) 2 ml BID IV FLUSH Last administered on 03/22/17 08: 41; Start 03/20/17 at 21:00 Acetaminophen (Tylenol) 650 mg Q6H PRN PO FEVER >101F; Start 03/20/17 at 17:15 Hydromorphone HCl (Dilaudid Pf Inj) 1 mg Q4H PRN IV PAIN SCALE 6 TO 10 Last administered on 03/22/17 05:45; Start 03/20/17 at 17:15 Pantoprazole Sodium (Protonix Inj) 40 mg DAILY IV Last administered on 08:44; Start 03/21/17 at 09:00 Ondansetron HCl (Zofran Inj) 4 mg Q6H PRN IV NAUSEA OR VOMITING Last administered on 03/22/17 08:37; Start 03/20/17 at 17:15 Albuterol/ Ipratropium (Duoneb Neb) 1 ampule Q4HR NEB PRN INH WHEEZING; Start 03/20/17 at 17:15 Heparin Sodium (Porcine) (Heparin Inj) 5,000 units Q12H SQ Last administered on 03/22/17 05:38; Start 03/20/17 at 18:00 Miscellaneous Information 1 Q361D XX Last administered on 03/20/17 17:15; Start 03/20/17 at 17:15 Chlorhexidine Gluconate (Chlorhexidine 2% Cloth) 3 pack Taper DAILY@04 TOP Last administered on 03/21/17 01:28; Start 03/21/17 at 04:00; Stop 03/17/18 at 03:59 Chlorhexidine Gluconate (Chlorhexidine 2% Cloth) 3 pack UNSCH PRN TOP HYGIENIC CARE; Start 03/20/17 at 17:15 Senna/Docusate Sodium (Lorena-Colace) 1 tab BID PO Last administered on 08:44; Start 03/20/17 at 21:00 Magnesium Hydroxide (Milk Of Magnesia Liq) 30 ml Q12H PRN PO MILD - MODERATE CONSTIPATION; Start 03/20/17 at 17:15 Sennosides (Senokot) 17.2 mg Q12H PRN PO MODERATE - SEVERE CONSTIPATION; Start 03/20/17 at 17:15 Bisacodyl 10 mg 10 mg DAILY PRN RECTAL SEVERE CONSITIPATION; Start 03/20/17 at 17:15 Sodium Chloride (NS 1000 ml Inj) 1,000 ml @ 125 mls/hr Q8H IV Last administered on 03/21/17 01:11; Start 03/20/17 at 17:11; Stop 03/21/17 at 11:41 ; Status DC Sodium Chloride (NS Flush) 2 ml UNSCH PRN IV FLUSH FLUSH AFTER USING IV ACCESS ; Start 03/20/17 at 17:15; Stop 03/20/17 at 17:30; Status DC Sodium Chloride 2 ml 2 ml BID IV FLUSH ; Start 03/20/17 at 21:00; Stop 03/20/17 at 21:00; Status DC Pharmacy Profile Note (Vancomycin Consult Pharmacy) 0 ml @ 0 mls/hr UNSCH OTHER ; Start 03/20/17 at 17:15 Dextrose (D50w (Vial) Inj) 50 ml UNSCH PRN IV HYPOGLYCEMIA-SEE COMMENTS; Start 03/20/17 at 17:15 Glucagon 1 mg 1 mg UNSCH PRN OTHER HYPOGLYCEMIA-SEE COMMENTS; Start 03/20/17 at 17:15 Levofloxacin/ Dextrose 150 ml @ 100 mls/hr Q24H IV Last administered on 17:38; Start 03/20/17 at 18:00 Vancomycin HCl/ Sodium Chloride (Vancomycin Inj/ NS 250 ml Inj) 250 ml @ 250 mls/hr Q24H IV Last administered on 03/21/17 15:35; Start 03/21/17 at 16:00 Miscellaneous Information SPECIFIC LAB TO BE ... ONCE ONCE .XX ; Start 03/23 at 15:45; Stop 03/23/17 at 15:46 Atorvastatin Calcium (Lipitor) 40 mg HS PO Last administered on 03/21/17 22:09 ; Start 03/20/17 at 21:00 Clopidogrel Bisulfate (Plavix) 75 mg DAILY PO Last administered on 03/22/17 08 :43; Start 03/21/17 at 09:00 Hydrochlorothiazide (Microzide) 12.5 mg DAILY PO Last administered on 08:44; Start 03/21/17 at 09:00 Levothyroxine Sodium (Synthroid) 75 mcg DAILY@06 PO Last administered on 05:38; Start 03/21/17 at 06:00 Metoprolol Tartrate (Lopressor) 12.5 mg BID PO Last administered on 03/22/17 08:43; Start 03/20/17 at 21:00 Leflunomide (Arava) 10 mg DAILY PO Last administered on 03/22/17 08:41; Start 03/21/17 at 09:00 Miscellaneous (Pill Splitter) 1 ea UNSCH PRN OTHER SEE LABEL COMMENTS; Start at 18:00 Acetaminophen/ Hydrocodone Bitart ([place] 5-325 Mg) 1 tab Q6H PRN PO PAIN SCALE 1 TO 5; Start 03/20/17 at 18:00 Zolpidem Tartrate (Ambien) 5 mg HS PRN PO INSOMNIA Last administered on 23:13; Start 03/20/17 at 20:30 Date of Insertion: Mar 20, 2017 Date of Removal: Mar 21, 2017 Date of Insertion: Mar 20, 2017 Date of Removal: Mar 21, 2017 Line: Central Venous Catheter Side: Right Location: Femoral A/P Assessment and Plan 76 y/o F p/w RLE cat bite -03/19: Blood cultures 2-NGTD -ID consult-appreciate recommendations -Patient received on 03/19 -1 g vancomycin, 3 g Unasyn in the ED -Vancomycin and Levofloxacin (day 3) -d/w Dr. Dawson Renal insufficiency -improved with IVFs. Severe sepsis -due to right lower extremity cellulitis -Cat bite right lower extremity -resolved. Prophylaxis: GI Prophylaxis Protonix DVT Prophylaxis -- SCDs left leg Discharge Planning most likely can be d/c later today on PO antibiotics. Colleen Goodson MD Mar 22, 2017 09:13
[2017-03-22] MEDS ORDERED: ACETAMINOPHEN/HYDROcodone 325 MG/10 MG TAB PO PRN (09:30)
[2017-03-22 12:00] VITALS: BP 123/57; PULSE 78; RESP 16; TEMP 98; O2SAT 97
--- NOTE | 2017-03-22 12:29 | HHI.IDPN ---
Subjective Subjective Remarks doing better much improved swelling and pain redness resolved except small residual area aroun the bite staci no fever Antibiotics vanco levaquine Past Medical History PVD Allergies: Coded Allergies: Lisinopril (Verified Allergy, Severe, ANGIOEDEMA, 03/20/17) Shellfish (Verified Allergy, Severe, Edema, 03/20/17) Objective . Vital Signs Date Time Temp Pulse Resp B/P Pulse Ox O2 Delivery O2 Flow Rate FiO2 03/22/17 08:58 94 21 03/22/17 08:00 97.5 90 16 121/56 90 03/22/17 04:00 97.6 85 16 151/70 97 03/22/17 00:00 98.7 93 18 114/54 94 03/21/17 20:00 98.2 89 16 133/61 98 03/21/17 16:00 96.6 91 17 149/66 93 03/21/17 15:00 95.8 81 20 134/61 94 03/21/17 03/21/17 03/22/17 15:00 23:00 07:00 Intake Total 392 ml 240 ml Balance 392 ml 240 ml Intake Oral 240 ml IV Total 392 ml # Voids 4 # Bowel Movements 0 . Laboratory Tests Test 03/20/17 03/22/17 15:05 04:41 White Blood Count 8.1 TH/MM3 13.2 TH/MM3 Red Blood Count 3.40 MIL/MM3 3.10 MIL/MM3 Hemoglobin 12.3 GM/DL 11.2 GM/DL Hematocrit 35.6 % 33.1 % Mean Corpuscular Volume 104.8 FL 106.8 FL Mean Corpuscular Hemoglobin 36.3 PG 36.2 PG Mean Corpuscular Hemoglobin 34.6 % 33.9 % Concent Red Cell Distribution Width 12.5 % 13.2 % Platelet Count 158 TH/MM3 120 TH/MM3 Mean Platelet Volume 8.6 FL 9.1 FL Neutrophils (%) (Auto) 89.0 % Lymphocytes (%) (Auto) 8.4 % Monocytes (%) (Auto) 2.2 % Eosinophils (%) (Auto) 0.2 % Basophils (%) (Auto) 0.2 % Neutrophils # (Auto) 7.2 TH/MM3 Lymphocytes # (Auto) 0.7 TH/MM3 Monocytes # (Auto) 0.2 TH/MM3 Eosinophils # (Auto) 0.0 TH/MM3 Basophils # (Auto) 0.0 TH/MM3 CBC Comment DIFF FINAL Differential Comment Laboratory Tests Test 03/20/17 03/20/17 03/22/17 15:05 19:25 04:41 Sodium Level 141 MEQ/L 139 MEQ/L Potassium Level 3.5 MEQ/L 3.5 MEQ/L Chloride Level 103 MEQ/L 105 MEQ/L Carbon Dioxide Level 26.1 MEQ/L 23.3 MEQ/L Anion Gap 12 MEQ/L 11 MEQ/L Blood Urea Nitrogen 32 MG/DL 14 MG/DL Creatinine 1.20 MG/DL 0.62 MG/DL Estimat Glomerular Filtration 44 ML/MIN 94 ML/MIN Rate Random Glucose 146 MG/DL 104 MG/DL Lactic Acid Level 2.1 mmol/L 1.1 mmol/L Calcium Level 9.0 MG/DL 8.4 MG/DL Total Bilirubin 0.6 MG/DL Direct Bilirubin 0.2 MG/DL Indirect Bilirubin 0.4 MG/DL Aspartate Amino Transf 26 U/L (AST/SGOT) Alanine Aminotransferase 23 U/L (ALT/SGPT) Alkaline Phosphatase 61 U/L Total Protein 5.7 GM/DL Albumin 3.5 GM/DL Microbiology Date/Time Procedure Status Source Growth 03/20/17 15:00 Aerobic Blood Culture - Preliminary Resulted Blood Peripheral NO GROWTH IN 2 DAYS 03/20/17 15:00 Anaerobic Blood Culture - Preliminary Resulted Blood Peripheral NO GROWTH IN 2 DAYS 03/20/17 15:05 Aerobic Blood Culture - Preliminary Resulted Blood Peripheral NO GROWTH IN 2 DAYS 03/20/17 15:05 Anaerobic Blood Culture - Preliminary Resulted Blood Peripheral NO GROWTH IN 2 DAYS 03/20/17 16:30 Urine Culture - Final Complete Urine Clean Catch Klebsiella Pneumoniae Imaging Last Impressions Chest X-Ray 03/20/17 1437 Signed Impressions: Service Date/Time: March 15:35 - CONCLUSION: 1. No acute cardiopulmonary disease. Tommy Schuster MD Physical Exam CONSTITUTIONAL/GENERAL: This is an adequately nourished patient, in no apparent distress. TUBES/LINES/DRAINS: SKIN: No jaundice, rashes, or lesions.Skin temperature appropriate. Not diaphoretic. Near completely resolved edema and erythema of RLE The are also 2 small wounds there cw animal bite, healing Well healed scar of RLE cw past surg hx EYES: No scleral icterus. No injection or drainage. Fundi not examined. ENT: Hearing grossly normal. Nose without bleeding or purulent drainage. Throat without visible erythema, exudates, masses, or lesions. CARDIOVASCULAR: Regular rate and rhythm 3/6 holocystolic murmur, no gallops, or rubs. No JVD. Peripheral pulses symmetric. RESPIRATORY/CHEST: Symmetric, unlabored respirations. Clear to auscultation. Breath sounds equal bilaterally. No wheezes, rales, or rhonchi. GASTROINTESTINAL: Abdomen soft, non-tender, nondistended. No hepato-splenomegaly , or palpable masses. No guarding. Bowel sounds present. MUSCULOSKELETAL: Extremities without clubbing, cyanosis, minimal RLE edema, e NEUROLOGICAL: Awake and alert. Motor and sensory grossly within normal limits. Follows commands. Clear speech. Moves all extremities. PSYCHIATRIC: No obvious anxiety/depression. no apparent hallucinations or other psychotic thought process. Assessment & Plan Remarks RLE cellulitis, severe, following cat bite, improving - cat is in-door, up to date on shots - possible cuprit org include streptococci, miya GAS, pausterlla, capnocytophaga, MSSA and less likely MRSa - PVD is predisposing condition - rapid improvement on current abx choice Improved on empiric abx blood clx negative -OK to dc - cont Augmentin, doxycycline (for MRSA) as o/p x 2 weeks - fu clinically - imaging studies if no complete resolution by the end of the week after dc ( if cont to have pain, redness, or swelling, or any worsening) dw Madie Blanco MD Mar 22, 2017 12:29
[2017-03-22] MEDS ORDERED: DOXY100C PO ×2 (12:32→13:15)
[2017-03-22] MEDS ORDERED: AUGM500T7 PO (12:32)
[2017-03-22 13:09] VITALS: RESP 18
[2017-03-22] MEDS ORDERED: AMOX500T2 PO (13:15)
--- NOTE | 2017-03-22 13:16 | HHI.DCPOC ---
Discharge Care Plan Diagnosis: (1) Cellulitis of right leg (2) Severe sepsis Goals to Promote Your Health * To prevent worsening of your condition and complications * To maintain your health at the optimal level Directions to Meet Your Goals Take your medications as prescribed Follow your dietary instruction Follow activity as directed Keep your appointments as scheduled Take your immunizations and boosters as scheduled If your symptoms worsen call your PCP, if no PCP go to Urgent Care Center or Emergency Room Smoking is Dangerous to Your Health. Avoid second hand smoke Call the 24-hour hour crisis hotline for domestic abuse at Colleen Goodson MD Mar 22, 2017 13:15
--- NOTE | 2017-03-22 13:16 | HHI.DS ---
Discharge Summary Admission Date Mar 20, 2017 at 15:37 Discharge Date: Mar 22, 2017 Admitting Diagnosis sepsis. Right leg cellulitis. (1) Cellulitis of right leg ICD Code: L03.115 Diagnosis: Principal (2) Severe sepsis ICD Code: A41.9 Diagnosis: Principal Procedures see hospital course Brief History - From Admission 76-year-old female complains of right leg pain and swelling and redness. Patient states that she got bitten by her cat on the right lower leg 3 days ago. Patient states that she noticed the pain swelling and redness on the right leg today. Patient denies any fever chills at home. Patient denies headache. Patient denies any chest pain or shortness of breath. Patient denies abdominal pain. Patient denies any focal weakness or numbness of extremity. Patient has history of peripheral vascular disease, type 2 diabetes diet controlled, hypertension. Patient also has history of hyperlipidemia, hypothyroidism, GERD, chronic anemia, rheumatoid arthritis. She is status post right fem pop bypass, hysterectomy, knee surgery, ankle surgery shoulder surgery and adrenal gland removal. Upon entering the ED, the patient was noted to have 2+ peripheral edema and hyperemia from the right foot to the right groin femoral area , no lymphadenopathy noted, with extreme tenderness. Critical care medicine was consulted. PFSH Past Medical History Arthritis: Yes Asthma: No Autoimmune Disease: Yes (RA) Blood Disorders: No Anxiety: Yes Depression: No Cancer: No Cardiovascular Problems: No (HIGH CHOLESTEROL) High Cholesterol: Yes Chemotherapy: No Chest Pain: No Congestive Heart Failure: No COPD: No Cerebrovascular Accident: No Diabetes: Yes (TYPE II) Diminished Hearing: No Endocrine: Yes GERD: Yes Glaucoma: No Genitourinary: No Headaches: No Hepatitis: No Hiatal Hernia: No Hypertension: Yes Immune Disorder: No Kidney Stones: No Musculoskeletal: Yes (OA AND RA, BACK PAIN) Neurologic: No (TRANSIENT NUMBNESS RIGHT LEG) Psychiatric: Yes (CLAUSTRAPHOBIA) Reproductive: No Respiratory: No Migraines: No Myocardial Infarction: No Radiation Therapy: No Renal Failure: No Seizures: No Sleep Apnea: No Thyroid Disease: Yes Ulcer: Yes ?: Not Past Surgical History Abdominal Surgery: Yes AICD: No Arteriovenous Shunt: No Body Medical Devices: RIGHT ANKLE HARDWARE Cardiac Surgery: Yes (RIGHT LEG VEINS) Ear Surgery: No Endocrine Surgery: Yes (LEFT ADRENALECTOMY) Eye Surgery: Yes (CLAUDIA. CATARACT EXTRACT.) Genitourinary Surgery: No Gynecologic Surgery: Yes (HYSTERECTOMY ) Hysterectomy: Yes Insulin Pump: No Joint Replacement: Yes (LEFT SHOULDER) Oral Surgery: No Pacemaker: No Thoracic Surgery: No Other Surgery: Yes Social History Alcohol Use: No Tobacco Use: No Substance Use: No Allergies-Medications (Allergen,Severity, Reaction): Coded Allergies: Lisinopril (Verified Allergy, Severe, ANGIOEDEMA, 03/20/17) Shellfish (Verified Allergy, Severe, Edema, 03/20/17) Reported Meds & Prescriptions Reported Meds & Active Scripts Active Reported Zolpidem (Zolpidem Tartrate) 5 Mg Tab 5 Mg PO HS PRN Sucralfate 1 Gm Tab 1 Gm PO QID on empty stomach Once Daily (Multivitamin) 1 Each Tablet Protonix (Pantoprazole Sodium) 40 Mg Tab 40 Mg PO BID Hydrochlorothiazide 12.5 Mg Tab 12.5 Mg PO DAILY Metoprolol Tartrate 25 Mg Tab 12.5 Mg PO BID Levothyroxine (Levothyroxine Sodium) 75 Mcg Tab 75 Mcg PO DAILY Leflunomide 10 Mg Tab 10 Mg PO DAILY D3 Super Strength (Cholecalciferol) 2,000 Unit Cap 2,000 Units PO DAILY Calcium 500 +D (Calcium Carbonate-Cholecalciferol) 500-400 Mg-Unit Tab 1 Tab PO DAILY Lipitor (Atorvastatin Calcium) 40 Mg Tab 40 Mg PO HS Plavix (Clopidogrel Bisulfate) 75 Mg Tab 75 Mg PO DAILY [Hydrocodone 5/500] 1 Tab PO PRN Review of Systems General / Constitutional: No: Fever Eyes: No: Visual changes HENT: No: Headaches Cardiovascular: No: Chest Pain or Discomfort Respiratory: No: Shortness of Breath Gastrointestinal: No: Abdominal Pain Genitourinary: No: Dysuria Musculoskeletal: Positive: Pain Skin: No Rash Neurologic: No: Weakness Psychiatric: No: Depression Endocrine: No: Polydipsia Hematologic/Lymphatic: No: Easy Bruising CBC/BMP: 03/22/17 0441 03/22/17 0441 Significant Findings Laboratory Tests Test 03/20/17 03/20/17 03/22/17 15:05 16:30 04:41 Activated Partial 18.8 SEC Thromboplast Time (24.3-30.1) Blood Urea Nitrogen 32 MG/DL (7-18) Creatinine 1.20 MG/DL (0.50-1.00) Estimat Glomerular Filtration 44 ML/MIN (>89) Rate Random Glucose 146 MG/DL (74-106) Lactic Acid Level 2.1 mmol/L (0.4-2.0) Total Protein 5.7 GM/DL (6.4-8.2) Red Blood Count 3.40 MIL/MM3 3.10 MIL/MM3 (4.00-5.30) (4.00-5.30) Mean Corpuscular Volume 104.8 FL 106.8 FL (80.0-100.0) (80.0-100.0) Mean Corpuscular Hemoglobin 36.3 PG 36.2 PG (27.0-34.0) (27.0-34.0) Neutrophils (%) (Auto) 89.0 % (16.0-70.0) Lymphocytes (%) (Auto) 8.4 % (9.0-44.0) Lymphocytes # (Auto) 0.7 TH/MM3 (1.0-4.8) Urine Ketones TRACE mg/dL (NEG) Urine Leukocyte Esterase TRACE (NEG) Urine WBC 6-8 /hpf (0-5) Urine WBC Clumps FEW (NONE) Urine Bacteria MANY /hpf (NONE) White Blood Count 13.2 TH/MM3 (4.0-11.0) Hemoglobin 11.2 GM/DL (11.6-15.3) Hematocrit 33.1 % (35.0-46.0) Platelet Count 120 TH/MM3 (150-450) Calcium Level 8.4 MG/DL (8.5-10.1) Imaging Last Impressions Chest X-Ray 03/20/17 [id number] Signed Impressions: Service Date/Time: March 15:35 - CONCLUSION: 1. No acute cardiopulmonary disease. Tommy Schuster MD PE at Discharge GENERAL: in NAD SKIN: LLE shows improvement of erythema. mild warmth. + pitting edema that has improved. CARDIOVASCULAR: Regular rate and rhythm without murmurs, gallops, or rubs. RESPIRATORY: Breath sounds equal bilaterally. No accessory muscle use. GASTROINTESTINAL: Abdomen soft, non-tender, nondistended. Pt update on day of discharge f/u for cellulitis due to cat bit patient very anxious to go home. she stated that norco controls pain and that she does not need dilaudid. Patient able to ambulate on her own. She stated cellulitis and swelling looks a lot better. Hospital Course 76 y/o F p/w RLE cat bite -patient was admitted to ICU due to sepsis. she was treated with IV antibiotics to cover for cat bite. -03/19: Blood cultures was obtained and negative. -ID consult and vancomycin and levofloxacin was continued. -patient was d/pierre on doxycycline and Augmentin. Renal insufficiency -patient was treated with IVFs and antibiotics in which renal failure resolved. Severe sepsis -due to right lower extremity cellulitis -Cat bite right lower extremity -see above. Pt Condition on Discharge: Good Discharge Disposition: Discharge Home Discharge Time: <= 30 minutes Discharge Instructions DIET: Follow Instructions for: Heart Healthy Diet Activities you can perform: Regular-No Restrictions Other Activity Instructions: elevate leg PRN to help with swelling. any signs of worsening of wound or no improvement please return to emergency department. Follow up Referrals: PCP Follow-up - 1 Week New Medications: Amoxicillin-Clavulanate (Amoxicillin-Clavulanate) 500-125 mg Tab 500 MG PO TID Infection Days 12 Ref 0 TAB Doxycycline Hyclate (Doxycycline Hyclate) 100 Mg Cap 100 MG PO BID Infection Days 12 Ref 0 CAP Continued Medications: Atorvastatin (Lipitor) 40 Mg Tab 40 MG PO HS Cholesterol Management #30 Ref 0 TAB Calcium Carbonate-Cholecalciferol (Calcium 500 +D) 500-400 Mg-Unit Tab 1 TAB PO DAILY Calcium Supplement Ref 0 TAB Cholecalciferol (D3 Super Strength) 2,000 Unit Cap 2000 UNITS PO DAILY Nutritional Supplement #30 Ref 0 CAP Clopidogrel (Plavix) 75 Mg Tab 75 MG PO DAILY Blood Clot Prevention #30 Ref 0 TAB Hydrochlorothiazide (Hydrochlorothiazide) 12.5 Mg Tab 12.5 MG PO DAILY #30 Ref 0 TAB Leflunomide (Leflunomide) 10 Mg Tab 10 MG PO DAILY TAB Levothyroxine (Levothyroxine) 75 Mcg Tab 75 MCG PO DAILY Thyroid #30 Ref 0 TAB Metoprolol Tartrate (Metoprolol Tartrate) 25 Mg Tab 12.5 MG PO BID #60 Ref 0 TAB Multivitamin (Once Daily) 1 Each Tablet Pantoprazole (Protonix) 40 Mg Tab 40 MG PO BID Reflux #30 Ref 0 TAB Sucralfate (Sucralfate) 1 Gm Tab 1 GM PO QID on empty stomach Duodenal ulcer #120 Ref 0 TAB Zolpidem (Zolpidem) 5 Mg Tab 5 MG PO HS PRN INSOMNIA Ref 0 TAB ([Hydrocodone 5/500]) 1 TAB PO PRN PAIN Colleen Goodson MD Mar 22, 2017 13:16
[2017-03-23] MEDS ORDERED: PHARMACY ORDERED LAB ONE (15:45)
== END 2017-03-22 14:19 | disposition home or self-care (01) | DRG 872 ==
LOC: PHED 14:01 → PHEDA 15:37 → HIMN 17:55 → N07B 03-21 14:05
PROVIDERS: ADMIT Family Medicine; ATTEND Family Medicine
PROC: 02HV33Z Insertion of Infusion Device into Superior Vena Cava, Percutaneous Approach (ICD-10-PCS; principal; 2017-03-20)
DX: A41.9 Sepsis, unspecified organism (principal); E11.42 Type 2 diabetes mellitus with diabetic polyneuropathy; L03.115 Cellulitis of right lower limb; R65.20 Severe sepsis without septic shock; I10 Essential (primary) hypertension; I73.9 Peripheral vascular disease, unspecified; E78.5 Hyperlipidemia, unspecified; E03.9 Hypothyroidism, unspecified; K21.9 Gastro-esophageal reflux disease without esophagitis; M06.9 Rheumatoid arthritis, unspecified; W55.01XA Bitten by cat, initial encounter; J44.9 Chronic obstructive pulmonary disease, unspecified; G47.00 Insomnia, unspecified; S80.871A Other superficial bite, right lower leg, initial encounter; Z87.891 Personal history of nicotine dependence
CPT/HCPCS: 36556; 71010; 76937; 80048; 80053; 80076; 81001; 83605; 85025; 85027; 85610; 85730; 87040; 87077; 87086; 87186; 87205; 93005; C9113; J0295; J1170; J1644; J1956; J2405; J3370; J7030; J7050

== ENCOUNTER → 2017-05-22 | Day surgery (SDC) | payer OTHER ==
[~2017-05-22] MED LIST changes: +AMOX500T2 PO; -ASPI325T10 OR; +BACITRACIN IM FOR SOLN 50,000 UNIT VIAL ONE; +BUPIVACAINE HCL PF 0.75% 30 ML VIAL ONE; +CALC1TAB12 PO; -CALCTAB23 PO; +CHOL20005 PO; -CLOP75 PO; +DOXY100C PO; -ENBR50IN3 SC; +GENTAMICIN SULFATE 80 MG/2 ML VIAL ONE; +LACTATED RINGER'S 1000 ML INJ 1,000 ML ONE; -LEFL10TA PO; +LEFL20TA11 PO; -LEVO100T4 PO; +LEVO75TA3 PO; +LIDOCAINE 1.5%/EPINEPHrine 1:200,000 PF SOLN 30 ML AMP ONE; -METO25 PO; +METO25TA3 PO; +MIDAZOLAM HCL 5 MG/ML VIAL (1 ML) ONE; +ONCETAB7; +ONDANSETRON HCL 4 MG/2 ML VIAL IV PUSH ONE; +PHENYLEPH/NS 1000 MCG/10 ML SYR IV ONE; +PLAV75TA29 PO; +PROPOFOL 200 MG/20 ML AMP IV ONE; +RESP: ALBUTEROL 2.5 MG/3 ML NEB (SCH) ONE; +SODIUM CHLORIDE 0.9% 20 ML VIAL ONE; -TAB-TAB PO; -VITA-13 PO; -VITA10002 PO; +ZITH250T PO; +ceFAZolin INJ 1,000 MG VIAL ONE; +ePHEDrine/NS 25 MG/5 ML SYR IV ONE
--- NOTE | 2017-05-22 08:21 | TN ---
cc: SANDRA HALL M.D. DATE OF OPERATION May 22, 2017 PREOPERATIVE DIAGNOSES 1. Right shoulder recurrent rotator cuff tendon tear. 2. Right shoulder impingement syndrome. 3. History of rheumatoid arthritis. POSTOPERATIVE DIAGNOSES 1. Right shoulder recurrent rotator cuff tendon tear. 2. Right shoulder impingement syndrome. 3. History of rheumatoid arthritis. PROCEDURE Right shoulder rotator cuff tendon repair. SURGEON Arley Hall MD ASSESSMENT Gwen Alvarez PA-C. SPECIMENS None. ESTIMATED BLOOD LOSS Minimal. COMPLICATIONS None. ANESTHESIA Interscalene block. CONDITION Stable. PLAN OF ACTIVITY Per orders. INDICATIONS A 76-year-old female with history of rheumatoid arthritis, sustained a right shoulder complete rotator cuff tendon tear. On October 10, 2014, the patient underwent a right shoulder decompression with rotator cuff tendon repair. The patient was doing extremely well until December 24, 2016. She went to hang up a towel in her shower and she states that she had heard a pop, had pain and weakness involving her shoulder. The patient declined MRI scan. Clinically the patient had a recurrent rotator cuff tendon tear. PROCEDURE My actuarial assistant Gwen Alvarez PA-C, was present for the entire surgical case. She was medically necessary for the entire case because of the complexity of the case and to facilitate the performance of the procedure. The ENERGY ATTORNEY at the back table was not of the skill set for this case to manipulate the instruments. The patient was brought into the operating room and had satisfactory interscalene anesthesia followed by general anesthesia by Dr. Pritchett of the Department of Anesthesia. The patient placed in a modified beach-chair position. The right shoulder, thorax, upper extremity down to and including the fingers were prepped and draped in usual sterile manner. Anterior exposure of the shoulder was made. Dissection continued through the subcutaneous tissue. The patient was found to have a recurrent rotator cuff tendon tear and longitudinal split within the supraspinatus tendon. The patient was found to have a still maintenance and satisfactory decompression of the subacromial space. The multiple #2 Ticron sutures [id number] were used to repair the rotator cuff tendon. The wound was irrigated with copious amounts of saline. The wound itself was dry. The splitting incision of the deltoid was repaired also with #2 Ticron suture, the subcutaneous layers with 2-0 Vicryl. The skin was approximated with running subcuticular 2-0 nylon. Sterile dressing applied. The patient tolerated the procedure well and arrived in the recovery room in stable and satisfactory condition. MD WILMER Simpson/SONI /8:01 AM /8:09 AM
== END | disposition home or self-care (01) ==
LOC: ESDC 06:08
PROVIDERS: ATTEND Orthopaedic Surgery Orthopaedic Surgery of the Spine
DX: M75.121 Complete rotator cuff tear or rupture of right shoulder, not specified as traumatic (principal); M75.41 Impingement syndrome of right shoulder; M06.9 Rheumatoid arthritis, unspecified
CPT/HCPCS: 01610; 01991; 23412; 64417; J0690; J1580; J2250; J2370; J2405; J7120; J7613

== ENCOUNTER 2017-07-17 16:23 | Emergency (ER) | payer OTHER ==
[~2017-07-17] VITALS: Ht 160 cm; Wt 69.1 kg
[~2017-07-17 16:23] MED LIST changes: -BACITRACIN IM FOR SOLN 50,000 UNIT VIAL ONE; -BUPIVACAINE HCL PF 0.75% 30 ML VIAL ONE; -GENTAMICIN SULFATE 80 MG/2 ML VIAL ONE; -LACTATED RINGER'S 1000 ML INJ 1,000 ML ONE; -LIDOCAINE 1.5%/EPINEPHrine 1:200,000 PF SOLN 30 ML AMP ONE; -MIDAZOLAM HCL 5 MG/ML VIAL (1 ML) ONE; -ONDANSETRON HCL 4 MG/2 ML VIAL IV PUSH ONE; -PHENYLEPH/NS 1000 MCG/10 ML SYR IV ONE; -PROPOFOL 200 MG/20 ML AMP IV ONE; -RESP: ALBUTEROL 2.5 MG/3 ML NEB (SCH) ONE; -SODIUM CHLORIDE 0.9% 20 ML VIAL ONE; -ZITH250T PO; -ceFAZolin INJ 1,000 MG VIAL ONE; -ePHEDrine/NS 25 MG/5 ML SYR IV ONE
[2017-07-17 16:34] VITALS: BP 184/95; PULSE 81; RESP 16; TEMP 98.7; O2SAT 95
[2017-07-17] MEDS ORDERED: AZITHROMYCIN INJ 500 MG in SODIUM CHLOR 0.9% 250 ML INJ 250 ML IV ONE (17:00)
[2017-07-17] MEDS ORDERED: SODIUM CHLORIDE 0.9% FLUSH 10 ML FLUSH IVF PRN (17:00)
--- NOTE | 2017-07-17 17:01 | PD ---
HPI . cat scratch Chief Complaint: Skin Problem Time Seen by Provider: 16:47 Travel History International Travel<30 days: No Contact w/Intl Traveler<30days: No Traveled to known affect area: No History of Present Illness HPI This patient presents with a chief complaint of a cat scratch to her right lower leg. It occurred about 3:30 PM. Tetanus is up-to-date. The patient reports chronic edema in her right lower extremity because of previous surgery. She reports no change in her swelling that she has developed erythema since the cat scratch. The patient further reports that she is on immunosuppressive therapy for rheumatoid arthritis. She states that she was hospitalized in the recent past in the ICU because of a cat bite. She describes an achy pain in her right lower leg which is constant, progressively worsening and rated 5/10. PFSH Past Medical History Hx Anticoagulant Therapy: Yes (PLAVIX) Arthritis: Yes Asthma: No Autoimmune Disease: Yes (RA) Blood Disorders: No Anxiety: Yes Depression: No Cancer: No Cardiovascular Problems: Yes (HTN, CHOL) High Cholesterol: Yes Chemotherapy: No Chest Pain: No Congestive Heart Failure: No COPD: No Cerebrovascular Accident: No Diabetes: No Diminished Hearing: No Endocrine: Yes Gastrointestinal Disorders: Yes (ULCER HX) GERD: Yes Glaucoma: No Genitourinary: No Headaches: No Hepatitis: No Hiatal Hernia: No Hypertension: Yes Immune Disorder: No Implanted Vascular Access Dvce: Yes Kidney Stones: No Musculoskeletal: Yes (OA AND RA, BACK PAIN) Psychiatric: Yes (CLAUSTRAPHOBIA) Reproductive: No Respiratory: No Migraines: No Myocardial Infarction: No Radiation Therapy: No Renal Failure: No Seizures: No Sleep Apnea: No Thyroid Disease: Yes Ulcer: Yes Tetanus Vaccination: < 5 Years Influenza Vaccination: Yes ?: Not Past Surgical History Abdominal Surgery: Yes AICD: No Arteriovenous Shunt: No Body Medical Devices: RIGHT ANKLE HARDWARE Cardiac Surgery: Yes (RIGHT LEG VEINS) Ear Surgery: No Endocrine Surgery: Yes (LEFT ADRENALECTOMY) Eye Surgery: Yes (CLAUDIA. CATARACT EXTRACT.) Genitourinary Surgery: No Gynecologic Surgery: Yes (HYSTERECTOMY ) Hysterectomy: Yes Insulin Pump: No Joint Replacement: Yes (LEFT SHOULDER) Oral Surgery: No Pacemaker: No Thoracic Surgery: No Other Surgery: Yes Social History Alcohol Use: Yes (LIQUOR, OCCASIONALLY) Tobacco Use: No (QUIT 2004) Substance Use: No Allergies-Medications (Allergen,Severity, Reaction): Coded Allergies: lisinopril (Unverified Allergy, Severe, ANGIOEDEMA, 07/17/17) shellfish derived (Unverified Allergy, Severe, Edema, 07/17/17) Reported Meds & Prescriptions Reported Meds & Active Scripts Active Zithromax (Azithromycin) 250 Mg Tab 250 Mg PO DAILY 4 Days Starting tomorrow Reported Zolpidem (Zolpidem Tartrate) 5 Mg Tab 5 Mg PO HS PRN Once Daily (Multivitamin) 1 Each Tablet Protonix (Pantoprazole Sodium) 40 Mg Tab 40 Mg PO BID Hydrochlorothiazide 12.5 Mg Tab 12.5 Mg PO DAILY Metoprolol Tartrate 25 Mg Tab 12.5 Mg PO BID Levothyroxine (Levothyroxine Sodium) 75 Mcg Tab 75 Mcg PO DAILY Leflunomide 10 Mg Tab 10 Mg PO DAILY D3 Super Strength (Cholecalciferol) 2,000 Unit Cap 2,000 Units PO DAILY Calcium 500 +D (Calcium Carbonate-Cholecalciferol) 500-400 Mg-Unit Tab 1 Tab PO DAILY Lipitor (Atorvastatin Calcium) 40 Mg Tab 40 Mg PO HS Plavix (Clopidogrel Bisulfate) 75 Mg Tab 75 Mg PO DAILY [Hydrocodone 5/500] 1 Tab PO PRN Review of Systems Except as stated in HPI: all other systems reviewed are Neg General / Constitutional: No: Fever, Chills Musculoskeletal: Positive: Arthralgias Skin: Positive Change in Pigmentation, Positive Other (wound on the right carey) Physical Exam Narrative Vital Signs Date Time Temp Pulse Resp B/P (MAP) Pulse Ox O2 Delivery O2 Flow Rate FiO2 07/17/17 16:34 98.7 81 16 184/95 (124) 95 GENERAL: Awake and alert and in no acute distress. SKIN: She has erythema and swelling of the right lower extremity. She has several, long, superficial lacerations on the chin. They are scabbed. No significant tenderness. No fluctuance. HEAD: Normocephalic/atraumatic. EYES: Pupils are equal. Extraocular movements are intact. NECK: Full range of motion without pain. CARDIOVASCULAR: Normal heart rate. RESPIRATORY: Nonlabored respirations. Respiratory rate 16 with oxygen saturation of 95% on room air. MUSCULOSKELETAL: Atraumatic. NEUROLOGICAL: Nonfocal. PSYCHIATRIC: Appropriate mood and affect. Data Data Last Documented VS Vital Signs Date Time Temp Pulse Resp B/P (MAP) Pulse Ox O2 Delivery O2 Flow Rate FiO2 07/17/17 16:34 98.7 81 16 184/95 (124) 95 Orders Orders Basic Metabolic Panel (Bmp) (07/17/17 16:47) Complete Blood Count With Diff (07/17/17 16:47) Blood Culture (07/17/17 16:47) Iv Access Insert/Monitor (07/17/17 16:47) Wound Care (07/17/17 16:47) Sodium Chloride 0.9% Flush (Ns Flush) (07/17/17 17:00) Lactic Acid (07/17/17 16:47) Azithromycin Inj (Zithromax Inj) (07/17/17 17:00) Labs Laboratory Tests Test 07/17/17 17:05 White Blood Count 6.0 TH/MM3 Red Blood Count 3.55 MIL/MM3 Hemoglobin 12.3 GM/DL Hematocrit 37.3 % Mean Corpuscular Volume 105.1 FL Mean Corpuscular Hemoglobin 34.7 PG Mean Corpuscular Hemoglobin Concent 33.0 % Red Cell Distribution Width 12.1 % Platelet Count 202 TH/MM3 Mean Platelet Volume 8.5 FL Neutrophils (%) (Auto) 48.2 % Lymphocytes (%) (Auto) 37.8 % Monocytes (%) (Auto) 10.7 % Eosinophils (%) (Auto) 2.3 % Basophils (%) (Auto) 1.0 % Neutrophils # (Auto) 2.9 TH/MM3 Lymphocytes # (Auto) 2.3 TH/MM3 Monocytes # (Auto) 0.6 TH/MM3 Eosinophils # (Auto) 0.1 TH/MM3 Basophils # (Auto) 0.1 TH/MM3 CBC Comment DIFF FINAL Differential Comment Blood Urea Nitrogen 27 MG/DL Creatinine 0.90 MG/DL Random Glucose 98 MG/DL Calcium Level 9.0 MG/DL Sodium Level 139 MEQ/L Potassium Level 3.7 MEQ/L Chloride Level 103 MEQ/L Carbon Dioxide Level 28.8 MEQ/L Anion Gap 7 MEQ/L Estimat Glomerular Filtration Rate 61 ML/MIN Lactic Acid Level 1.0 mmol/L MDM Medical Decision Making Medical Screen Exam Complete: Yes Emergency Medical Condition: Yes Differential Diagnosis My differential diagnosis includes but is not limited to localized wound infection, cellulitis, abscess Narrative Course This patient presents with erythema of her right lower extremity which started just a couple of hours following a cat scratch. She has no fever or any other systemic symptoms. She is immunocompromised because of treatment for RA. UpToDate was queried. The recommended antibiotic his Zithromax. I have ordered a dose of IV Zithromax while checking a CBC and lactic acid level. Blood cultures have also been drawn. I anticipate discharge with close follow- up following her evaluation. CBC & BMP Diagram 07/17/17 17:05 Calcium Level 9.0 LA 1.0 Diagnosis Primary Impression: Cellulitis of right leg Additional Impression: Cat scratch of lower leg Qualified Codes: S80.811A - Abrasion, right lower leg, initial encounter; W55.03XA - Scratched by cat, initial encounter Referrals: Primary Care Physician 1 day Patient Instructions: Cat Scratch Disease (DC), General Instructions Med/Other Pt SpecificInfo: Prescription(s) given Scripts Azithromycin (Zithromax) 250 Mg Tab 250 MG PO DAILY for Infection for 4 Days, #4 TAB 0 Refills Starting tomorrow Prov: Zulay Negrete MD 07/17/17 Disposition: 01 DISCHARGE HOME Condition: Stable Zulay Negrete MD Jul 17, 2017 17:01
[2017-07-17] MEDS ORDERED: ZITH250T PO (17:10)
[2017-07-17 17:15] LABS: AUTOMATED NEUTROPHIL # 2.9 TH/MM3 (1.8-7.7); BASOPHIL # 0.1 TH/MM3 (0-0.2); EOSINOPHIL # 0.1 TH/MM3 (0-0.4); EOSINOPHIL % 2.3 % (0.0-4.0); HEMATOCRIT 37.3 % (35.0-46.0); HEMO FLAGS DIFF FINAL; LYMPH % 37.8 % (9.0-44.0); LYMPHOCYTE # 2.3 TH/MM3 (1.0-4.8); MEAN CELL VOLUME 105.1 FL (80.0-100.0); MEAN CORPUSCULAR HEMOGLOBIN 34.7 PG (27.0-34.0); MONO % 10.7 % (0.0-8.0); NEUT % 48.2 % (16.0-70.0); PLATELET COUNT 202 TH/MM3 (150-450); RED BLOOD COUNT 3.55 MIL/MM3 (4.00-5.30); RED CELL DISTRIBUTION WIDTH 12.1 % (11.6-17.2)
[2017-07-17 17:23] LABS: POTASSIUM 3.7 MEQ/L (3.5-5.1)
[2017-07-17 17:26] LABS: BICARBONATE 28.8 MEQ/L (21.0-32.0)
== END 2017-07-17 18:52 | disposition home or self-care (01) ==
LOC: PHED 16:23
DX: L03.115 Cellulitis of right lower limb (principal); S80.811A Abrasion, right lower leg, initial encounter; I10 Essential (primary) hypertension; E07.9 Disorder of thyroid, unspecified; E78.00 Pure hypercholesterolemia, unspecified; W55.03XA Scratched by cat, initial encounter; Z79.01 Long term (current) use of anticoagulants; Z87.39 Personal history of other diseases of the musculoskeletal system and connective tissue; Z86.2 Personal history of diseases of the blood and blood-forming organs and certain disorders involving the immune mechanism; Z86.59 Personal history of other mental and behavioral disorders; Z86.79 Personal history of other diseases of the circulatory system; Z87.19 Personal history of other diseases of the digestive system
CPT/HCPCS: 80048; 83605; 85025; 87040; 96365; 99284; J0456; J7050

== ENCOUNTER 2017-09-01 10:19 | Day surgery (SDC) | payer OTHER ==
[~2017-09-01] VITALS: Ht 160 cm; Wt 68.3 kg
[~2017-09-01 10:19] MED LIST changes: -AMOX500T2 PO; -CHOL20005 PO; +D200CAP PO; -DOXY100C PO; -SUCR1TAB PO; +ZITH250T PO
[2017-09-01] MEDS ORDERED: IOHEXOL 350 MG/ML 50 ML BTL (for Cath Lab) OTHER ONE (10:20)
[2017-09-01] MEDS ORDERED: NS 1000P @30 MLS/HR (KVO) IV SCH (11:15)
[2017-09-01] MEDS ORDERED: diphenhydrAMINE HCL 50 MG CAP PO SCH (11:15)
--- NOTE | 2017-09-01 11:27 | PD.FRAIL ---
Date: Sep 01, 2017 Height: 160cm Weight: 68.6 BMI: 27.4 Assessment Performed: Outpatient Albumin Albumin 3.7 Pass/Fail: Pass Rossi Activities Daily Living Rossi ADL Score: Bathing(bathes self/help in single area): Garden (1), Dressing(gets/puts clothes on self): Garden (1), Toileting(goes without help): Garden ( 1), Transferring(unassisted or [facility] aides): Garden (1), Continence( complete self-control): Garden (1), Feeding(self, prep by another allowed) : Garden (1), Total: 6 Pass/Fail: Pass Pulp Operator Strength Grasp 1: 6 Grasp 2: 4 Grasp 3: 4 Average: 4.7 Pass/Fail: Fail (rhuematoid arthritis) 15-Foot Walk 15-Foot Walk (seconds): 8.6 Pass/Fail: Fail Total Frailty Total Frailty (out of 4): 2 Frailty Index Score Reference Pulp Operator Strength: BMI: <=23 Cutoff for ham rolling machine operator strength(Kg): <=17 BMI: 23.1-26 Cutoff for ham rolling machine operator strength(Kg): <=17.3 BMI: 26.1-29 Cutoff for ham rolling machine operator strength(Kg): <=18 BMI: >29 Cutoff for ham rolling machine operator strength(Kg): <=21 15-Foot Walk: Height: <=159 cm 15-Foot Walk Cutoff Time: >=7 seconds Height: >159 cm 15-Foot Walk Cutoff Time: >=6 seconds Agustin Gr RN Sep 01, 2017 11:27
[2017-09-01 11:35] LABS: AUTOMATED NEUTROPHIL # 2.9 TH/MM3 (1.8-7.7); BASOPHIL % 0.5 % (0.0-2.0); EOSINOPHIL # 0.1 TH/MM3 (0-0.4); EOSINOPHIL % 1.8 % (0.0-4.0); HEMO FLAGS DIFF FINAL; LYMPH % 29.4 % (9.0-44.0); LYMPHOCYTE # 1.5 TH/MM3 (1.0-4.8); MEAN CELL VOLUME 107.9 FL (80.0-100.0); MEAN CORPUSCULAR HEMOGLOBIN 37.2 PG (27.0-34.0); MEAN CORPUSCULAR HGB CONC 34.5 % (32.0-36.0); NEUT % 56.3 % (16.0-70.0); PLATELET COUNT 197 TH/MM3 (150-450); RED BLOOD COUNT 3.42 MIL/MM3 (4.00-5.30); RED CELL DISTRIBUTION WIDTH 12.7 % (11.6-17.2); WHITE BLOOD COUNT 5.1 TH/MM3 (4.0-11.0)
[2017-09-01 11:37] LABS: BACTERIA, URINE OCC /hpf; BLOOD, URINE NEG (NEG); COMMENT (UR) CULTURE INDICATED; CULTURE IF INDICATED CULTURE INDICATED; GLUCOSE,URINE NEG (NEG); HYALINE CAST, URINE 1 /lpf (RARE); KETONE, URINE NEG (NEG); NITRITE,URINE NEG (NEG); PH, URINE 6.5 (5.0-8.5); SQUAMOUS EPITHELIAL CELL URINE <1 /hpf (0-5); TRANSITIONAL EPI CELLS, URINE <1 /hpf; URINE COLOR YELLOW (YELLW/STRAW)
[2017-09-01 11:42] LABS: APTT (PATIENT) 25.6 SEC (24.3-30.1)
[2017-09-01 12:01] LABS: BICARBONATE 29.8 MEQ/L (21.0-32.0)
[2017-09-01 12:26] VITALS: BP 151/85; PULSE 68; RESP 18; TEMP 98; O2SAT 98
[2017-09-01] MEDS ORDERED: POTA595T PO (12:31)
[2017-09-01] MEDS ORDERED: NITROGLYCERIN INJ 5 ML ONE (13:17)
[2017-09-01] MEDS ORDERED: VERAPAMIL HCL 5 MG/2 ML VIAL ONE (13:17)
[2017-09-01] MEDS ORDERED: HEPARIN-NS/PF INJ 1,000 ML ONE (13:17)
[2017-09-01] MEDS ORDERED: HEPARIN SODIUM - IV 10,000 UNITS/10 ML VIAL ONE (13:17)
[2017-09-01] MEDS ORDERED: MIDAZOLAM HCL 2 MG/2 ML VIAL ONE ×2 (13:25→13:44)
[2017-09-01] MEDS ORDERED: diphenhydrAMINE HCL 50 MG/ML VIAL ONE (13:39)
[2017-09-01] MEDS ORDERED: FAMOTIDINE 20 MG/2 ML VIAL ONE (13:39)
--- NOTE | 2017-09-01 14:27 | MA ---
cc: KACEY MCDONALD DATE: 09/01/2017 DATE OF : 1940 PROCEDURE PERFORMED 1. Left heart catheterization. 2. Selective right and left coronary angiography. INDICATION Preoperative work-up of severe symptomatic aortic stenosis. ACCESS Right transfemoral. PROCEDURE DESCRIPTION Consent was signed. The patient was brought to the cardiac veterinarian laboratory animal care in a fasting state. The right groin was prepped and draped in sterile fashion. Using 1% lidocaine for local anesthesia and a micropuncture kit, a 5 Nepali sheath was inserted into the left common femoral artery. Left common femoral artery angiography was performed to confirm position of the sheath then selective right and left coronary angiography was performed with a JR4 and JL4 diagnostic catheter. Angiography was taken in multiple views. The patient tolerated the procedure without complications. Estimated blood loss was less than 30 cc. Total contrast used was 45 cc. The right groin access site was closed with a Vascade closure device. RESULTS ANGIOGRAPHY 1. The right coronary artery is a dominant vessel giving off the PDA. It is tortuous, however, there is no significant obstructive coronary artery disease. The PDA is patent as well as a PLB branch. 2. The left main is giving off the LAD, a ramus vessel and left circumflex artery. The left main is patent with CHRISTIE-III flow and nonobstructive coronary artery disease. 3. The LAD is a transapical vessel giving off two main diagonal vessels. The first diagonal is tortuous and patent. The second is small, tortuous and also patent. The LAD is of significant size, has nonobstructive coronary artery disease. 4. The left circumflex artery is patent with CHRISTIE-III flow. It gives off a main OM vessel prominent in size. It is patent with CHRISTIE-III flow. 5. The ramus is small and patent with tortuosity and nonobstructive coronary artery disease. CONCLUSIONS 1. Severe symptomatic aortic stenosis. 2. Nonobstructive coronary artery disease. RECOMMENDATIONS Continue AVR versus TAVR work-up and aggressive medical management of coronary artery disease. MD NATE Hayes/SILVESTRE /2:09 PM /2:16 PM [id number]
[2017-09-01] MEDS ORDERED: BACITRACIN OINT 0.9 GM PKT TOP ONE (14:30)
[2017-09-01] MEDS ORDERED: ATROPINE SULFATE 1 MG/ML VIAL IV PUSH PRN (14:30)
[2017-09-01] MEDS ORDERED: LIDOCAINE HCL 1% 50 ML VIAL INFIL PRN (14:30)
[2017-09-01] MEDS ORDERED: MISC INFORMATION XX ONE (15:00)
--- NOTE | 2017-09-01 16:40 | PD.CAR.PN ---
CVT Progress Note Subjective/Hospital Course: sts data discussed with pt RISK SCORES About the STS Risk Calculator Procedure: AV Replacement Risk of Mortality: 4.758% Morbidity or Mortality: 21.347% Long Length of Stay: 11% Short Length of Stay: 24.887% Permanent Stroke: 1.86% Prolonged Ventilation: 14.371% DSW Infection: 0.289% Renal Failure: 4.933% Reoperation: 8.674% Objective: Vital Signs Date Time Temp Pulse Resp B/P (MAP) Pulse Ox O2 Delivery O2 Flow Rate FiO2 09/01/17 15:43 94 Room Air 09/01/17 12:26 98.0 68 18 151/85 (107) 98 Labs: Laboratory Tests Test 09/01/17 11:00 White Blood Count 5.1 TH/MM3 (4.0-11.0) Red Blood Count 3.42 MIL/MM3 (4.00-5.30) Hemoglobin 12.7 GM/DL (11.6-15.3) Hematocrit 37.0 % (35.0-46.0) Mean Corpuscular Volume 107.9 FL (80.0-100.0) Mean Corpuscular Hemoglobin 37.2 PG (27.0-34.0) Mean Corpuscular Hemoglobin Concent 34.5 % (32.0-36.0) Red Cell Distribution Width 12.7 % (11.6-17.2) Platelet Count 197 TH/MM3 (150-450) Mean Platelet Volume 8.8 FL (7.0-11.0) Neutrophils (%) (Auto) 56.3 % (16.0-70.0) Lymphocytes (%) (Auto) 29.4 % (9.0-44.0) Monocytes (%) (Auto) 12.0 % (0.0-8.0) Eosinophils (%) (Auto) 1.8 % (0.0-4.0) Basophils (%) (Auto) 0.5 % (0.0-2.0) Neutrophils # (Auto) 2.9 TH/MM3 (1.8-7.7) Lymphocytes # (Auto) 1.5 TH/MM3 (1.0-4.8) Monocytes # (Auto) 0.6 TH/MM3 (0-0.9) Eosinophils # (Auto) 0.1 TH/MM3 (0-0.4) Basophils # (Auto) 0.0 TH/MM3 (0-0.2) CBC Comment DIFF FINAL Differential Comment Prothrombin Time 11.0 SEC (9.8-11.6) Prothromb Time International Ratio 1.0 RATIO Activated Partial Thromboplast Time 25.6 SEC (24.3-30.1) Urine Color YELLOW (YELLW/STRAW) Urine Turbidity HAZY (CLEAR) Urine pH 6.5 (5.0-8.5) Urine Specific [place] 1.015 (1.002-1.035) Urine Protein NEG mg/dL (NEG-TRACE) Urine Glucose (UA) NEG mg/dL (NEG) Urine Ketones NEG mg/dL (NEG) Urine Occult Blood NEG (NEG) Urine Nitrite NEG (NEG) Urine Bilirubin NEG (NEG) Urine Urobilinogen LESS THAN 2.0 MG/DL (LESS Urine Leukocyte Esterase LARGE (NEG) Urine RBC 3 /hpf (0-3) Urine WBC 22 /hpf (0-5) Urine WBC Clumps RARE (NONE) Urine Squamous Epithelial Cells <1 /hpf (0-5) Urine Transitional Epithelial Cells <1 /hpf (NONE) Urine Bacteria OCC /hpf (NONE) Urine Hyaline Casts 1 /lpf (RARE) Microscopic Urinalysis Comment CULTURE INDICATED Nasal Screen MRSA (PCR) MRSA NOT DETECTED (NOT Blood Urea Nitrogen 31 MG/DL (7-18) Creatinine 0.85 MG/DL (0.50-1.00) Random Glucose 99 MG/DL (74-106) Albumin 3.7 GM/DL (3.4-5.0) Calcium Level 9.2 MG/DL (8.5-10.1) Sodium Level 137 MEQ/L (136-145) Potassium Level 4.0 MEQ/L (3.5-5.1) Chloride Level 101 MEQ/L (98-107) Carbon Dioxide Level 29.8 MEQ/L (21.0-32.0) Anion Gap 6 MEQ/L (5-15) Estimat Glomerular Filtration Rate 65 ML/MIN (>89) Result Diagram: 09/01/17 1100 09/01/17 1100 Lexy Dickerson Sep 01, 2017 16:40
--- NOTE | 2017-09-01 17:12 | RADRPT ---
EXAM DATE/TIME: 09/01/2017 13:57 [facility] COMPARISON: CHEST SINGLE AP, March 20, 2017, 15:35. INDICATIONS : Pre TAVR. MEDICAL HISTORY : None. SURGICAL HISTORY : None. ENCOUNTER: Initial ACUITY: 1 day PAIN SCORE: 0/10 LOCATION: Bilateral chest FINDINGS: A single view of the chest demonstrates the lungs to be symmetrically aerated without evidence of mas s, infiltrate or effusion. The cardiomediastinal contours are unremarkable. Total shoulder on the l eft. CONCLUSION: No acute disease. Abdi Khalil MD FACR on September 01, 2017 at 17:09 Board Certified Radiologist. This report was verified electronically.
[2017-09-01] MEDS ORDERED: IOHEXOL 350 MG/ML 10 ML VIAL (for RAD DIAG) IVCONTRAST ONE (18:22)
--- NOTE | 2017-09-01 23:41 | RADRPT ---
EXAM DATE/TIME: 09/01/2017 18:04 [facility] COMPARISON: No previous studies available for comparison. INDICATIONS : Trans aortic valve replacement IV CONTRAST: 96 cc Omnipaque 350 (iohexol) IV RADIATION DOSE: 42.86 CTDIvol (mGy) MEDICAL HISTORY : Cardiovascular disease. Hypertension. SURGICAL HISTORY : Hysterectomy. lt adrenalectomy ENCOUNTER: Initial ACUITY: 1 day PAIN SCALE: 0/10 LOCATION: chest TECHNIQUE: Volumetric scanning was performed using a multi-row detector CT scanner. The data was post processed with a variety of visualization algorithms including full volume maximum intensity projection, multi -planar sliding thin slab reformation, curved planar reformation, and surface rendering techniques. Using automated exposure control and adjustment of the mA and/or kV according to patient size, radiat ion dose was kept as low as reasonably achievable to obtain optimal diagnostic quality images. DIC OM format image data is available electronically for review and comparison. FINDINGS: CARDIAC: The coronary system is left dominant. Scattered atherosclerotic calcification of the coronary arterie s. The right coronary appears to be diminutive. There is no pericardial effusion AORTIC ROOT/VALVE: 3 cusps are evident with dense calcification. The aortic root measures 2.9 cm. Mid thoracic aorta measures 3.0 cm with minimal calcifications. THORACIC AORTA: Origin of the great vessels is normal. No evidence of aneurysm, mural thrombus, dissection or stenos is. Scattered atherosclerotic calcifications are present ABDOMINAL AORTA: Scattered calcification without aneurysmal disease. No significant stenosis. CELIAC ARTERY: Celiac artery is widely patent. SMA: Superior mesenteric artery is widely patent. RIGHT RENAL ARTERY: Right renal artery is widely patent. LEFT RENAL ARTERY: Left renal artery is widely patent. RIGHT COMMON ILIAC: Focal stenosis in the right common iliac artery with the vessel measuring approximately [address] There is been a right common femoral endarterectomy with the patched vessel measuring 1.1 cm in diameter LEFT COMMON ILIAC: No evidence of aneurysm, mural thrombus, dissection, mural calcification, or stenosis. However, the c ommon femoral shows regional calcification and associated stenosis measured approximately 5 mm in lashell meter. THORAX: Dense calcification of the mitral valve annulus. Linear atelectatic changes in the dependent portions of both lung bases. ABDOMEN: Cortical scarring in the lateral upper pole of the left kidney. A some diverticular disease of the de scending and sigmoid colon without diverticulitis PELVIS: Patient is status post hysterectomy CONCLUSION: 1. There appears to be a patch endarterectomy of the right common femoral artery which is widely robledo nt 1.1 cm. However, the right common iliac artery has a stenosis at the vessel measuring approximatel y 5 mm just distal to the bifurcation. 2. On the left, the access is tenuous with regional calcification in the common femoral measuring 5 m m in diameter. However, the iliac system is otherwise widely patent. 3. Despite calcification of the abdominal and thoracic aorta, the vessel is widely patent throughout with no significant stenosis. Arch vessels are all patent as well. 4. Dense calcification of the 3 leaflet aortic valve with thoracic aortic measurements as above. 5. Cortical scarring in the lateral aspect of the upper pole of the left kidney. 6. Diverticular disease of the descending and sigmoid colon without diverticulitis. Dm Hawk MD on September 01, 2017 at 23:28 Board Certified Radiologist. This report was verified electronically.
--- NOTE | 2017-09-02 07:30 | MB ---
cc: NASEEM PIZARRO DATE OF CONSULTATION 09/01/17 DATE OF 1940. A 76-year-old patient of Dr. Silvino Petty. Abdi Sharp, primary care physician. REASON FOR CONSULTATION Evaluation for aortic valve disease, transcatheter aortic valve replacement versus conventional aortic valve replacement. HISTORY OF PRESENT ILLNESS A very pleasant 76-year-old female, denied having any chest pain, no syncope, however has been having shortness of breath off and on for the past 4-5 months. She is fairly active. She still drives, cooks and cleans but she has limited activity because of her arthritis, scoliosis. She underwent echocardiogram August 14 which showed an ejection fraction of 58%, some grade 1 diastolic dysfunction, aortic valve severely restricted leaflet motion, peak gradient of 78, mean gradient of 52, valve area of 0.31 cm2, mild mitral valve regurgitation. Trace tricuspid regurgitation. She underwent coronary cath today which showed no evidence of obstructing disease. PAST MEDICAL HISTORY History of adrenal mass, gastroesophageal reflux disease, gastric ulcers, anxiety, aortic stenosis, Mak's esophagus, carotid artery disease, colon polyps, COPD, pseudocyst of the pancreas, degenerative disc disease, diabetes mellitus type 2, diet-controlled, hyperkalemia, hyperlipidemia, hypertension, hypothyroidism, osteopenia, significant peripheral arterial disease, rheumatoid arthritis, chronic venous insufficiency. PAST SURGICAL HISTORY Surgeries include a left adrenalectomy, atherectomy, bilateral salpingo-oophorectomy. Right lower extremity fem-pop bypass by Dr. Grant four years ago, otherwise, she is followed by Dr. Enrique. Right ankle arthroplasty, left shoulder replacement, total abdominal hysterectomy. ALLERGIES INCLUDE NIYAH INHIBITORS, SHELLFISH. FAMILY HISTORY Mother at 58 of colon cancer. Father at 69 from heart failure. 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 Has three children. Has a glass of wine at night. REVIEW OF SYSTEMS GENERAL: In general, no night sweats, fever, heat, cold intolerance. SKIN: No psoriasis, itching or hives. HEENT: No blurred vision, hearing loss. RESPIRATORY: Positive for shortness of breath. No cough. CARDIOVASCULAR: No chest pain. No paroxysmal nocturnal dyspnea. GASTROINTESTINAL: No diarrhea, vomiting. GENITOURINARY: No burning, frequency, urgency. KINESIOTHERAPIST: No history of TIA, CVA, seizure disorder. ENDOCRINOLOGY: Positive for diabetes. No hypothyroidism. PHYSICAL EXAMINATION VITAL SIGNS: Blood pressure 150/80, heart rate 68, temperature 98. GENERAL: Patient is awake, alert, no acute distress. HEENT: Head is normocephalic, atraumatic. Pupils equal and reactive. Oral mucosa pink, moist. NECK: Supple. No JVD. HEART: Heart sounds S1-S2, grade 2-3/6 systolic ejection murmur at the left sternal border. ABDOMEN: Soft, nontender. No masses or organomegaly. EXTREMITIES: Reveal +1 edema of the right lower extremity with some chronic venous stasis. She has got a faint dorsalis pedis, the left is +2 pedal pulse. NEUROLOGICALL: A&O 3. No focal deficits. LAB WORK Shows hemoglobin 12, hematocrit 37, white cell count 5, platelet count of 197. Sodium 137, potassium 4.0, BUN of 31, creatinine 0.85, INR 1.0. MRSA screen non-detected. Urinalysis has a large amount of leuko esterase. Culture indicated. IMAGING STUDIES Chest x-ray is unremarkable. CARDIOLOGY STUDIES EKG shows sinus rhythm. No acute changes. ASSESSMENT/PLAN Frailty score the patient had a 2/4. She failed the walk test and the commercial plumber strength because of her rheumatoid arthritis. Her STS data shows risk of mortality 5.7. At this time the patient is intermediate to higher risk for conventional aortic valve replacement, recommending transcatheter valve replacement, however, she does have significant peripheral arterial disease and other access will need to be discussed in further depth and will also be evaluated by another cardiovascular thoracic surgeon, Dr. Jenkins. Dictated by: ROGER Brian MD ERYN Mckeon/DALE /4:32 PM /7:24 AM
--- NOTE | 2017-09-02 17:36 | EKG ---
Date Performed: 09/01/2017 Time Performed: 11:31:30 PTAGE: 76 years EKG: Sinus rhythm . rSr'(V1) - probable normal variant Since previous tracing, no significant change noted Normal ECG PREVIOUS TRACING : 03/20/2017 15.30 DOCTOR: Montserrat Durbin Interpretating Date/Time 09/02/2017 17:35:30
--- NOTE | 2017-09-03 10:30 | RSPPFT ---
DATE OF PROCEDURE: 09/01/17 COMMENTS: Spirometry with FVC of 1.9, FEV1 of 1.4, FEV1/FVC ratio at 72%. Post-bronchodilator study was not performed. IMPRESSION: 1. Moderately severe airways obstruction.
== END 2017-09-01 19:12 | disposition home or self-care (01) ==
LOC: HDOC 10:19 → HDIC 10:19 → HDOC 19:12
PROVIDERS: ATTEND Radiology Vascular & Interventional Radiology
DX: I35.0 Nonrheumatic aortic (valve) stenosis (principal); I34.0 Nonrheumatic mitral (valve) insufficiency; I25.10 Atherosclerotic heart disease of native coronary artery without angina pectoris; I10 Essential (primary) hypertension; J44.9 Chronic obstructive pulmonary disease, unspecified; N39.0 Urinary tract infection, site not specified; B96.1 Klebsiella pneumoniae [K. pneumoniae] as the cause of diseases classified elsewhere; E03.9 Hypothyroidism, unspecified; Z01.818 Encounter for other preprocedural examination; Z95.2 Presence of prosthetic heart valve
CPT/HCPCS: 71010; 74174; 80048; 81001; 82040; 85025; 85610; 85730; 86850; 86900; 86901; 87077; 87086; 87186; 87641; 93005; 93454; 94010; 99152; 99153; C1760; C1769; C1893; G0269; J1200; J1644; J2250; J3010; Q9967

== ENCOUNTER 2017-09-17 08:57 | Inpatient (IN) | payer OTHER, MEDICARE ==
[~2017-09-17] VITALS: Ht 160 cm; Wt 70.0 kg
[~2017-09-17 08:57] MED LIST changes: -CALC1TAB12 PO; -D200CAP PO; -HYDROCODONE 5/500 PO; -LEFL20TA11 PO; -ONCETAB7; +ONCETAB7 PO; +POTA595T PO; -ZITH250T PO
[2017-09-17] MEDS ORDERED: CALC1TAB12 PO (09:35)
[2017-09-17] MEDS ORDERED: AMLO5TAB2 PO (09:35)
[2017-09-17] MEDS ORDERED: SUCR1TAB PO (09:35)
[2017-09-17] MEDS ORDERED: HUMI40KI SQ (09:35)
[2017-09-17] MEDS ORDERED: SULF500T3 PO (09:35)
[2017-09-17] MEDS ORDERED: POTA595T PO (09:35)
[2017-09-17] MEDS ORDERED: HYDR-3516 PO (09:35)
[2017-09-17] MEDS ORDERED: LOSA100T PO (09:35)
[2017-09-17] MEDS ORDERED: TRAZ50TA12 PO (09:35)
[2017-09-17 10:00] VITALS: BP 171/76; PULSE 69; RESP 18; TEMP 97.4; O2SAT 95
[2017-09-17] MEDS ORDERED: SODIUM CHLORID 0.9% 500 ML IV PRN (10:15)
[2017-09-17] MEDS ORDERED: MUPIROCIN 2% OINT 1 APPLIC/GM SYRINGE EACH NARE PRN (10:15)
[2017-09-17] MEDS ORDERED: METOPROLOL TARTRATE 25 MG TAB PO PRN (10:15)
[2017-09-17] MEDS ORDERED: ceFAZolin 2 GM PREMIX 50 ML IV PRN (10:15)
[2017-09-17] MEDS ORDERED: LACTATED RINGER'S 1000 ML IV PRN (10:15)
[2017-09-17] MEDS ORDERED: POVIDONE IODINE 5% (ANTISEPSIS KIT) 4 APPLICATIONS EACH NARE PRN (10:15)
[2017-09-17] MEDS ORDERED: CHLORHEXIDINE GLUCONATE 2 % 1 PACK (2 CLOTHS) TOPICAL PRN (10:15)
[2017-09-17] MEDS: SODIUM CHLOR 0.9% 1000 ML 1,000 ML IV SCH ×2 (10:30→18:30)
[2017-09-17 10:44] LABS: AUTOMATED NEUTROPHIL # 4.1 TH/MM3 (1.8-7.7); BASOPHIL % 0.7 % (0.0-2.0); EOSINOPHIL # 0.2 TH/MM3 (0-0.4); EOSINOPHIL % 2.6 % (0.0-4.0); LYMPH % 19.7 % (9.0-44.0); LYMPHOCYTE # 1.2 TH/MM3 (1.0-4.8); MEAN CELL VOLUME 106.5 FL (80.0-100.0); MEAN CORPUSCULAR HEMOGLOBIN 39.1 PG (27.0-34.0); MONO % 8.4 % (0.0-8.0); NEUT % 68.6 % (16.0-70.0); PLATELET COUNT 190 TH/MM3 (150-450); RED BLOOD COUNT 3.29 MIL/MM3 (4.00-5.30); RED CELL DISTRIBUTION WIDTH 12.8 % (11.6-17.2)
[2017-09-17 10:47] LABS: BICARBONATE 26.7 MEQ/L (21.0-32.0)
[2017-09-17 10:49] LABS: HEMO FLAGS AUTO DIFF; MEAN CORPUSCULAR HGB CONC 36.7 % (32.0-36.0)
--- NOTE | 2017-09-17 10:56 | MH ---
cc: KACEY MCDONALD DATE OF ADMISSION 09/17/2017 DATE OF 1940 REASON FOR ADMISSION Elective transcatheter aortic valve replacement. HISTORY OF PRESENT ILLNESS 76-year-old female with past medical history significant for PAD, COPD, diabetes , hypertension and hyperlipidemia, who has been diagnosed with severe symptomatic aortic stenosis with preserved ejection fraction. The patient reports worsening shortness of breath on minimal exertion for the last couple of months. She was referred by Dr. Petty to the [facility] team for further management and evaluation. Echocardiogram calculated aortic valve velocity of 4.4, mean gradient 52, a calculated valve area of 0.31 and ejection fraction of 58%. She was seen by Dr. Hedrick and Dr. Jenkins who deemed her intermediate risk for conventional AVR for which she was consulted for TAVR. After thorough evaluation she was deemed an appropriate candidate for TAVR. Today she is presenting for elective transcatheter aortic valve replacement. She has no complaints. Denies chest pain, shortness of breath, syncope, palpitations, leg edema, fevers, chills, nausea, vomiting, diarrhea. REVIEW OF SYSTEMS Negative except for what is mentioned in the HPI. PAST MEDICAL HISTORY 1. PAD. 2. COPD. 3. Diabetes. 4. Hypertension. 5. Gastric ulcers. 6. Hyperlipidemia. 7. Rheumatoid arthritis. 8. Chronic diastolic dysfunction. 9. Severe symptomatic aortic stenosis. FAMILY HISTORY Noncontributory. ALLERGIES No known drug allergies. MEDICATIONS Home medications are reviewed. PHYSICAL EXAMINATION VITAL SIGNS: Temperature 97, respiratory rate 20, heart rate 70, blood pressure 140/80. O2 sat 100% on room air. GENERAL: Awake, alert and oriented x3, in no acute distress. NECK: No JVD. No carotid bruits. HEART: 3/6 systolic ejection murmur. No gallops or rubs. LUNGS: Clear to auscultation bilaterally. ABDOMEN: Benign. EXTREMITIES: No cyanosis or edema. Pulses throughout. DATA STS score 4.7%, frailty 2/4. EKG sinus rhythm. PFTs show moderate obstructive airway disease. Echocardiogram shows aortic valve velocity of 4.4, mean gradient 52, calculated valve area 0.31, ejection fraction 58%. Left heart cath shows nonobstructive coronary artery disease. TAVR CTA shows short annulus diameter of 19, long annulus diameter 24, parameter of 69.2. There is a trileaflet aortic valve with calcification at the tips of the leaflets. No LVOT calcification. There is mild STJ calcification. The sinus of Valsalva diameter is 27. The STJ is 27. The left coronary height is 10.3. The right coronary height is 12.5. She does have PAD of the iliacs. The minimal luminal diameter on the right is 4.1 and on the left is 3.9 and there is some calcification throughout. ASSESSMENT 76-year-old female who presented today for elective TAVR in the setting of severe symptomatic aortic stenosis. She has been thoroughly evaluated by the [facility] heart valve team and has deemed to be an appropriate candidate for TAVR. The risks and benefits of TAVR including but not limited to infection, bleeding, acute kidney injury, neurovascular trauma, permanent pacemaker placement, stroke and have been explained to the patient. The patient understands the risks and she is willing to proceed. PLAN Left TF TAVR with an Evolut R 26 mm valve. Kacey Mcdonald MD, MPH, FACC HUMAN FACTORS ENGINEER/BT /10:13 AM /10:23 AM RINA
[2017-09-17 10:57] LABS: PROTHROMBIN TIME - PATIENT 10.7 SEC (9.8-11.6)
[2017-09-17 10:58] LABS: APTT (PATIENT) 25.9 SEC (24.3-30.1); INTERNATIONAL NORMALIZED RATIO 1.1 RATIO
[2017-09-17] MEDS ORDERED: ASPIRIN 325 MG TAB ONE (11:11)
[2017-09-17] MEDS ORDERED: HEPARIN-NS/PF INJ 2,500 ML ONE (11:12)
[2017-09-17 11:24] LABS: SCAN/DIFF AUTO DIFF CONFIRMED
[2017-09-17] MEDS ORDERED: NORMOSOL R INJ 3,000 ML IV ONE (12:00)
[2017-09-17] MEDS ORDERED: NEOSTIGMINE 5 MG/5 ML SYRINGE IV PUSH ONE (12:00)
[2017-09-17] MEDS ORDERED: GLYCOPYRROLATE 1 MG/5 ML SYRINGE IV PUSH ONE (12:00)
[2017-09-17] MEDS ORDERED: PROPOFOL 200 MG/20 ML AMP IV ONE (12:00)
[2017-09-17] MEDS ORDERED: PHENYLEPH/NS 1000 MCG/10 ML SYR IV ONE (12:00)
[2017-09-17] MEDS ORDERED: PHENYLEPHRINE HCL 10 MG/ML VIAL IV ONE (12:00)
[2017-09-17] MEDS ORDERED: ePHEDrine/NS 25 MG/5 ML SYR IV ONE (12:00)
[2017-09-17] MEDS ORDERED: EPINEPHrine HCL (1:1000) 1 MG/ML VIAL IV ONE (12:00)
[2017-09-17] MEDS ORDERED: ROCURONIUM INJ 50 MG/5 ML SYRINGE IV PUSH ONE (12:00)
[2017-09-17] MEDS ORDERED: MIDAZOLAM HCL 2 MG/2 ML VIAL IV ONE (12:00)
[2017-09-17] MEDS ORDERED: LIDOCAINE HCL 1% PF 5 ML SYRINGE OTHER ONE (12:00)
[2017-09-17] MEDS ORDERED: HEPARIN SODIUM - IV 10,000 UNITS/10 ML VIAL ONE (12:23)
[2017-09-17] MEDS ORDERED: PROTAMINE SULFATE 50 MG/5 ML VIAL ONE (12:23)
[2017-09-17] MEDS ORDERED: IOHEXOL 300 MG/ML 100 ML BTL (for Rad CT) IVCONTRAST ONE (14:06)
[2017-09-17] MEDS ORDERED: SODIUM CHLOR 0.9% 1000 ML INJ 1,000 ML IV SCH (14:08)
--- NOTE | 2017-09-17 14:12 | PD.OP ---
cc: Grabiel Austin MD; Coco eHdrick MD; Rolf Case MD Operative Report Date of Surgery: Sep 17, 2017 Preoperative Diagnosis: (1) Aortic stenosis (2) Diastolic CHF due to valvular disease Postoperative Diagnosis: same Procedure: Transcatheter aortic valve replacement with a 26 Evolut R Corevalve Balloon aortic valvuloplasty with an 18 True Balloon Percutaneous left and right femoral access with Perclose closure of the left femoral artery Aortography Fluoroscopy Anesthesia: Dr. Montano Surgeon: Coco Hedrick Co-surgeon - Dr. Ferrer Communications Equipment Installer(s): Dr. Case Operation and Findings: The risks, benefits, complications, treatment options, and expected outcomes were discussed with the patient. The possibilities of reaction to medication, pulmonary aspiration, perforation of viscus, bleeding, recurrent infection, the need for additional procedures, failure to diagnose a condition, and creating a complication requiring transfusion or operation were discussed with the patient. The patient concurred with the proposed plan, giving informed consent. The site of surgery properly noted/marked. The patient was taken to the hybrid room, identified as Karo Cervantes and the procedure verified as Transcatheter Aortic Valve Replacement. A Time Out was held and the above information confirmed. Standard monitoring lines and Wells catheter were placed. General anesthesia was induced. The patient was prepped and draped in a sterile fashion. Initially, right femoral arterial and venous access was acquired using a Seldinger percutaneous technique with ultrasound guidance. The details of this procedure were dictated under separate note by cardiology. Once a pigtail was positioned in the aortic annulus and a temporary transvenous pacemaker wire was placed in the right ventricular apex and tested, the left femoral artery was accessed using a needle followed by a guidewire under fluoroscopic guidance. Serial dilators were used to dilate the left femoral artery to 12 Ukrainian caliber. A 12 welsh sheath was then inserted for the BAV. Arch aortography was performed to define the implant view. A balloon aortic valvuloplasty was then performed using a 18 x 6 True balloon with the patient being paced at 180 beats per minute. The sheath was exchanged for the 16 Ukrainian valve delivery device. A 26 Corevalve Evolut R transcatheter aortic valve was then positioned in the annulus and deployed with the patient being paced at 120 beats per minute. Following deployment, the valve apparatus was withdrawn and arch aortography and APPLE were performed to assess the valve. The valve had a trace perivalvular leak. Gradients were then measured. A runoff arteriogram was then performed to assess the aortic bifurcation and common iliac vessels. No dissections or perforations were noted. Therefore, the sheath was withdrawn under direct vision and removed. Perclose sutures were secured and the patient received protamine. Sterile dressings were placed. At the end of the operation, all sponge, instruments, and needle counts were correct. The patient was transferred to the CVICU in stable condition. Implants: 26 Corevalve Evolut R Complications: none Disposition: to CVICU in stable condition Coco Hedrick MD Sep 17, 2017 14:12
[2017-09-17] MEDS ORDERED: DEXTROSE 50% IN WATER 50 ML VIAL(D50) IV PUSH PRN (14:15)
[2017-09-17] MEDS ORDERED: MISC INFORMATION OTHER ONE (14:15)
[2017-09-17] MEDS ORDERED: ADALIMUMAB SQ SCH (14:15)
[2017-09-17] MEDS ORDERED: ACETAMINOPHEN 325 MG TAB PO PRN (14:15)
[2017-09-17] MEDS ORDERED: GLUCAGON 1 MG/ML VIAL OTHER PRN (14:15)
[2017-09-17 14:40] VITALS: BP_SYST 108; BP_SYST 123; BP_DIAS 46; BP_DIAS 54; PULSE 70; RESP 16; TEMP 97.1; O2SAT 94
--- NOTE | 2017-09-17 14:49 | EKG ---
Date Performed: 09/17/2017 Time Performed: 10:02:12 PTAGE: 76 years EKG: Sinus rhythm . rSr'(V1) - probable normal variant Normal ECG PREVIOUS TRACING : 09/17/2017 09.43 DOCTOR: Rolf Case Interpretating Date/Time 09/17/2017 14:48:42
[2017-09-17 15:00] VITALS: BP_SYST 100; BP_SYST 108; BP_DIAS 40; BP_DIAS 50; PULSE 68; PULSE 73; RESP 18; TEMP 97.1; O2SAT 96
[2017-09-17] MEDS: ASPIRIN 81 MG CHEW TAB PO SCH (16:00)
[2017-09-17] MEDS: CLOPIDOGREL 75 MG TAB PO SCH (16:00)
--- NOTE | 2017-09-17 17:25 | PD.PROCEDR ---
Procedure Note Procedure Procedure: Transesophageal Echocardiography Diagnosis: Severe aortic stenosis Indications: Perioperative planning for transcatheter aortic valve replacement Consent: Obtained Anesthesia: General endotracheal anesthesia Description of the Procedure: The patient was sedated and mechanically ventilated. The echo probe was inserted easily and without resistance. At the conclusion of the procedure, the echo probe was removed. Please see detailed echocardiogram report for formal findings. Preliminary Findings (not confirmed): Pre-procedure: 1) concentric left ventricular hypertrophy 2) normal biventricular function 3) severe aortic stenosis 4) [id number] aortic regurgitation 5) no evidence of intra-atrial shunt by color flow Doppler 6) no pericardial effusion Post-procedure: 1) s/p successful placement of transcatheter aortic valve 2) no evidence of bioprosthetic aortic valve stenosis 3) [id number] perivalvular leak 4) no pericardial effusion The patient tolerated the procedure well with no hemodynamic instability. There were no immediate complications noted. I personally performed the procedure. Nicholas Layne MD Sep 17, 2017 17:25
--- NOTE | 2017-09-17 17:34 | PD.CONS ---
[facility] Service Critical Care Medicine Consult Requested By Dr. Ferrer Reason for Consult Management of medical comorbidities Primary Care Physician Non-Staff History of Present Illness This is a 76-year-old female with a past medical history of severe symptomatically aortic stenosis, peripheral arterial disease status post aortobifem bypass, COPD, diabetes, hypertension, hyperlipidemia. She presents for elective transcatheter aortic valve replacement. She underwent uncomplicated placement. Intraoperatively she did have a short time period where she was in third-degree heart block requiring transvenous pacing, however upon arrival to the CVICU she is back in normal sinus rhythm. Patient is arousing from anesthesia and a complete review systems is unobtainable. She does state that her pain is adequately controlled and denies other associated symptoms such as nausea, vomiting, headache. Critical care medicine is consulted to evaluate and manage the patient's medical comorbidities. Review of Systems ROS Limitations: Clinical Condition, Altered Mental Status Respiratory: DENIES: Shortness of breath Cardiovascular: DENIES: Chest pain Gastrointestinal: DENIES: Nausea, Vomiting Neurologic: DENIES: Headache ROS Arousing from anesthesia Past Family Social History Allergies: Coded Allergies: lisinopril (Unverified Allergy, Severe, ANGIOEDEMA, 07/17/17) shellfish derived (Unverified Allergy, Severe, Edema, 07/17/17) Past Medical History Peripheral arterial disease COPD Diabetes Hypertension Gastric ulcers Hyperlipidemia Rheumatoid arthritis diastolic dysfunction Severe symptomatically aortic stenosis Past Surgical History Status post aortobifemoral bypass Reported Medications Potassium Gluconate 595 Mg (99 Mg) Tab Calcium 500 +D (Calcium Carbonate-Cholecalciferol) 500-400 Mg-Unit Tab 1 Tab PO BID Trazodone (Trazodone HCl) 50 Mg Tab 50 Mg PO HS Hydrocodone-Acetaminophen 5-325 mg Tab 1 Tab PO DIRECTED PRN Sucralfate 1 Gram Tab 1 Gm PO QID on empty stomach Amlodipine (Amlodipine Besylate) 5 Mg Tab 5 Mg PO DAILY Sulfasalazine 500 Mg Tab 500 Mg PO BID Losartan (Losartan Potassium) 100 Mg Tab 100 Mg PO DAILY Humira 2-Pack Inj (Adalimumab 2-Pack Inj) 40 Mg/0.8 Ml Syr 40 Mg SQ Q7D Once Daily (Multivitamin) 1 Each Tablet Protonix (Pantoprazole Sodium) 40 Mg Tab 40 Mg PO BID Hydrochlorothiazide 12.5 Mg Tab 12.5 Mg PO DAILY Metoprolol Tartrate 25 Mg Tab 12.5 Mg PO BID Levothyroxine (Levothyroxine Sodium) 75 Mcg Tab 75 Mcg PO DAILY Lipitor (Atorvastatin Calcium) 40 Mg Tab 40 Mg PO HS Plavix (Clopidogrel Bisulfate) 75 Mg Tab 75 Mg PO DAILY Active Ordered Medications See MAR Family History Reviewing the chart and found to be noncontributory to her acute illness Social History Denies tobacco, EtOH, drugs of abuse Physical Exam Vital Signs Vital Signs Date Time Temp Pulse Resp B/P (MAP) Pulse Ox O2 Delivery O2 Flow Rate FiO2 09/17/17 15:00 96 Nasal Cannula 2.00 09/17/17 15:00 73 09/17/17 15:00 66 09/17/17 15:00 97.1 68 18 100/50 (67) 96 108/40 (62) 09/17/17 14:40 97.1 70 16 108/54 (72) 94 123/46 (71) 09/17/17 10:00 97.4 69 18 171/76 (107) 95 Physical Exam GENERAL: Elderly frail female, lying in bed, arousing from anesthesia HEENT: Normocephalic. Atraumatic. Pupils equal, round, reactive, conjugate. Mucous membranes are moist NECK: Trachea is midline. There is no JVD. Right IJ 6 Vincentian introducer sheath with transvenous pacer, site clean dry and intact CHEST: Facemask oxygen. Unlabored. Equal chest rise. CARDIOVASCULAR: Normal rate, regular rhythm. Sinus by telemetry. Not currently being paced. ABDOMEN: Soft, nontender, nondistended. No guarding. MUSCULOSKELETAL: Pulses 2+. No peripheral edema. Bilateral groin sites without evidence of hematoma, small dressings intact. Distal pulses dopplerable NEUROLOGICAL: RASS -1. Arousing from anesthesia. Moves all extremity's. Follows commands. Laboratory Laboratory Tests Test 09/17/17 10:15 White Blood Count 6.0 Red Blood Count 3.29 Hemoglobin 12.8 Hematocrit 35.0 Mean Corpuscular Volume 106.5 Mean Corpuscular Hemoglobin 39.1 Mean Corpuscular Hemoglobin Concent 36.7 Red Cell Distribution Width 12.8 Platelet Count 190 Mean Platelet Volume 8.5 Neutrophils (%) (Auto) 68.6 Lymphocytes (%) (Auto) 19.7 Monocytes (%) (Auto) 8.4 Eosinophils (%) (Auto) 2.6 Basophils (%) (Auto) 0.7 Neutrophils # (Auto) 4.1 Lymphocytes # (Auto) 1.2 Monocytes # (Auto) 0.5 Eosinophils # (Auto) 0.2 Basophils # (Auto) 0.0 CBC Comment AUTO DIFF Differential Comment AUTO DIFF CONFIRMED Prothrombin Time 10.7 Prothromb Time International Ratio 1.1 Activated Partial Thromboplast Time 25.9 Blood Urea Nitrogen 20 Creatinine 0.71 Random Glucose 120 Calcium Level 9.2 Sodium Level 138 Potassium Level 4.0 Chloride Level 104 Carbon Dioxide Level 26.7 Anion Gap 7 Estimat Glomerular Filtration Rate 80 Result Diagram: 09/17/17 1015 09/17/17 1015 Assessment and Plan Assessment and Plan Assessment: 76-year-old female with peripheral arterial disease and severe somatic aortic stenosis now postop day 0 status post transcatheter aortic valve replacement. Clinically doing well. Watch in the ICU overnight. Frequent neurovascular checks. Given her small LV cavity and severe left ventricular hypertrophy with diastolic dysfunction, we will closely watch urine output and may need increase IV fluids to keep up with urine output status post valve replacement to prevent her from becoming intravascular hypovolemic. s/p TAVR with groin access 09/17 Anti-coagulation per Dr. Ferrer Frequent neurovascular checks Maintenance IV fluids Watch urine output closely Hypertension Add back home antihypertensives as needed Goal systolic blood pressure less than 180 Hyperlipidemia Restart home statin GERD Restart home PPI COPD Nebs when necessary Wean oxygen for goal SPO2 greater than 90% Aggressive pulmonary toilet Hypothyroidism Restart home Synthroid Disposition: Remain in the ICU overnight. If she remains clinically improving, would consider transfer to stepdown unit in the morning. Critical care medicine will continue to follow patient while they're in the CVICU. Code Status Full code Discussed Condition With Dr. lorenz, Dr. Ferrer, Nicholas Ryan MD Sep 17, 2017 17:34
--- NOTE | 2017-09-17 17:38 | PD.CARD ---
Cardiology Procedure Note Procedure Name: TAVR Procedure Date: Sep 17, 2017 Procedure Note: OPERATIVE DIAGNOSIS: 1. Severe symptomatic aortic stenosis with preserved LV systolic function. 2. Shortness of breath, Chronic diastolic heart failure, [employer] of 3 sx. 3. Hypertension. 5. COPD 6. PAD POSTOPERATIVE DIAGNOSIS 1. Severe symptomatic aortic stenosis with preserved LV systolic function. 2. Shortness of breath, Chronic diastolic heart failure, [employer] of 3 sx. 3. Hypertension. 5. COPD 6. PAD OPERATIVE PROCEDURE Left transfemoral transaortic valve replacement with a 26 mm Evolut R Medtronic valve, Aortic root angiogram. Placement of a pigtail for angiography. Temporary pacemaker insertion. Perclose left common femoral arteries. Mynx right common femoral arteries ANESTHESIA Dr. Montano SURGEON: Dr. Coco Hedrick CAR MECHANIC HELPER: alligator shear operator: Dr. Nabil Stephens. Airplane Woodworker: Dr. Rolf Case. ECHO-SUPPORT: Dr. Manish Layne INDICATIONS 76 year-old F with severe symptomatic aortic stenosis with progressive symptoms of heart failure NYHA III. The patient has been evaluated for aortic valve replacement. It was felt that he will be an intermediate risk for conventional aortic valve replacement on the basis of frailty, STS score and comorbidities. He has been evaluated and accepted for transcatheter aortic valve replacement after extensive review of patient's chart. The risks of the procedure have been discussed with the patient at length and consents have been signed and to proceed as planned. DESCRIPTION OF PROCEDURE Under general anesthesia a transesophageal echocardiogram was placed in the esophagus which was used throughout the procedure to evaluate aortic valve as well as the other valve structures. Then using 1% lidocaine for local anesthesia and a micropuncture kit, the right femoral artery entered percutaneously and a 5-Bolivian sheath was inserted. Then pigtail catheter was advanced over a 0.035 wire around the arch of the aorta and placed in the noncoronary cusp for in order to get multiple views for deployment of the valve. Then using 1% lidocaine for local anesthesia a micropuncture kit, the left TF valve arterial access site was accessed. Angiogram with angiography was performed through the micropuncture sheath to confirm adequate position and/or any complications. Then 8-Bolivian sheath was inserted into the left common femoral artery. This was followed by Preclosing the artery with three Perclose devices. The patient was then fully heparinized with an ACT checked. Then a super core 0.05 wire was advanced into the ascending aorta, followed by dilating the common femoral artery with a 10-Bolivian dilator. This was followed by introduction of a 12-Bolivian sheath then we used an AL1 over a straight 300 cm stiff, Amplatz wire to cross the aortic valve. The wire was left in the mid left ventricular cavity. Then a 6-Bolivian pigtail was inserted over the wire. This was followed by exchanging the wire with a Confida wire. Then the after removing the 12-Bolivian sheath the valve was inserted sheathless thru the right common femoral artery. After confirmation of position of the device the valve was self expanded. Post deployment there was a trace sign PVL on transesophageal echocardiogram. The patient tolerated the procedure well without complications. The catheter was removed with pullback the system to the aortic aorta and then it was removed from the left femoral artery and Perclose. Finally the pigtail was removed. The the sheath on the left side were removed and pressure and Mynx. This concluded the operation. COMPLICATIONS: None. DISPOSITION Admit to CVICU a stable condition for post cath care. Dual antiplatelet agent with aspirin and Plavix. Early extubation, out of bed after bedrest. The temporary pacemaker to remain in place for the next 24 hours. Telemetry monitoring, EP consult per protocol, resume home medications. Grabiel Austin MD, MPH, [facility] Grabiel Austin MD Sep 17, 2017 17:38
[2017-09-17] MEDS ORDERED: RESP: ALBUTEROL 2.5 MG/IPRATROPIUM 0.5 MG NEB (PRN) INH (17:45)
[2017-09-17] MEDS: SUCRALFATE 1 GM TAB PO SCH ×2 (18:00→21:00)
[2017-09-17] MEDS: ACETAMINOPHEN/HYDROcodone 325 MG/5 MG TAB PO PRN (18:57)
[2017-09-17 19:00] VITALS: BP 122/57; PULSE 89; PULSE 93; RESP 16; TEMP 97.8; O2SAT 98
[2017-09-17 20:24] VITALS: O2SAT 96
[2017-09-17] MEDS ORDERED: ATORVASTATIN 40 MG TAB PO SCH (21:00)
[2017-09-17] MEDS ORDERED: NON-FORMULARY DRUG (Calcium Carbonate-Cholecalciferol (Calcium 500 +D) 1 TAB) PO SCH (21:00)
[2017-09-17] MEDS ORDERED: traZODone HCL 50 MG TAB PO SCH (21:00)
[2017-09-17] MEDS: CALCIUM/VITAMIN D 250 MG/125 U TAB PO SCH (21:07)
[2017-09-17] MEDS: PANTOPRAZOLE SOD 40 MG DELAYED RELEASE TAB PO SCH (21:07)
[2017-09-17] MEDS: sulfaSALAzine 500 MG TAB PO SCH (22:07)
[2017-09-17 23:00] VITALS: BP 108/45; PULSE 84; PULSE 85; RESP 16; TEMP 98.1; O2SAT 92
[2017-09-18 03:00] VITALS: BP 131/60; PULSE 86; RESP 16; TEMP 98.4; O2SAT 92
[2017-09-18] MEDS: ACETAMINOPHEN/HYDROcodone 325 MG/5 MG TAB PO PRN ×2 (03:44→11:44)
[2017-09-18] MEDS: SODIUM CHLOR 0.9% 1000 ML 1,000 ML IV SCH ×2 (03:45→10:28)
[2017-09-18] MEDS ORDERED: LEVOTHYROXINE SODIUM 75 MCG TAB PO SCH (06:00)
[2017-09-18 07:00] VITALS: BP 151/69; PULSE 92; PULSE 96; RESP 16; TEMP 98.7; O2SAT 92
--- NOTE | 2017-09-18 07:37 | HHI.PR ---
Subjective Remarks Feeling better Objective Vital Signs Date Time Temp Pulse Resp B/P (MAP) Pulse Ox O2 Delivery O2 Flow Rate FiO2 09/18/17 07:00 92 Room Air 09/18/17 03:00 98.4 86 16 131/60 (83) 92 09/18/17 03:00 91 Room Air 09/18/17 03:00 86 09/17/17 23:00 93 Room Air 09/17/17 23:00 98.1 85 16 108/45 (66) 92 Arterial Line 09/17/17 23:00 84 09/17/17 20:24 96 Nasal Cannula 2.00 09/17/17 19:00 97.8 93 16 122/57 (78) 98 Arterial Line 09/17/17 19:00 89 09/17/17 19:00 98 Nasal Cannula 2.00 09/17/17 15:00 96 Nasal Cannula 2.00 09/17/17 15:00 73 09/17/17 15:00 66 09/17/17 15:00 97.1 68 18 100/50 (67) 96 108/40 (62) 09/17/17 14:40 97.1 70 16 108/54 (72) 94 123/46 (71) 09/17/17 10:00 97.4 69 18 171/76 (107) 95 I/O 09/17/17 09/17/17 09/17/17 09/18/17 09/18/17 09/18/17 07:00 15:00 23:00 07:00 15:00 23:00 Intake Total 2400 ml 250 ml 1490 ml Output Total 775 ml 775 ml Balance 2400 ml -525 ml 715 ml Intake Oral 240 ml IV Total 250 ml 1250 ml Other 2400 ml Output Urine Total 775 ml 775 ml # Bowel Movements 0 0 Result Diagram: 09/17/17 1015 09/17/17 1015 Imaging Alert, fully oriented Heart: S1, s2 regular abdomen: soft, no mass ext: no edema Current Medications Medications (Trade) Dose Ordered Sig/Mina Route Start Time Stop Time Status Last Admin Lactated Ringer's 1,000 ml @ 30 mls/hr Q24H PRN IV 09/17/17 10:15 09/20/17 10:14 Sodium Chloride 500 ml @ 30 mls/hr [id number] PRN IV 09/17/17 10:15 09/20/17 10:14 (Lopressor) 25 mg LABEL REWINDER PRN PO 09/17/17 10:15 09/20/17 10:14 (Betadine 5% Antisepsis Kit) 1 applic LABEL REWINDER PRN EACH NARE 09/17/17 10:15 09/20/17 10:14 (Chlorhexidine 2% Cloth) 3 pack LABEL REWINDER PRN TOPICAL 09/17/17 10:15 09/20/17 10:14 09/17/17 11:50 Sodium Chloride 1,000 ml @ 125 mls/hr Q8H IV 09/17/17 10:30 09/18/17 03:45 Cefazolin Sodium/ Dextrose 50 ml @ 100 mls/hr LABEL REWINDER PRN IV 09/17/17 10:15 09/20/17 10:14 09/17/17 11:27 (Bactroban Nasal 2% Oint) 1 applic LABEL REWINDER PRN EACH NARE 09/17/17 10:15 09/20/17 10:14 09/17/17 11:50 (Tylenol) 650 mg Q4H PRN PO 09/17/17 14:15 09/18/17 14:14 (Aspirin Chew) 81 mg DAILY PO 09/17/17 16:00 (Plavix) 75 mg DAILY PO 09/17/17 16:00 (D50w (Vial) Inj) 50 ml UNSCH PRN IV PUSH 09/17/17 14:15 (Glucagon Inj) 1 mg UNSCH PRN OTHER 09/17/17 14:15 (Norvasc) 5 mg DAILY PO 09/18/17 09:00 (Lipitor) 40 mg HS PO 09/17/17 21:00 09/17/17 21:07 ([place] 5-325 Mg) 1 tab Q8H PRN PO 09/17/17 14:15 09/18/17 03:44 (Synthroid) 75 mcg DAILY@0600 PO 09/18/17 06:00 09/18/17 06:23 (Cozaar) 100 mg DAILY PO 09/18/17 09:00 (Protonix) 40 mg BID PO 09/17/17 21:00 09/17/17 21:07 (Carafate) 1 gm QID PO 09/17/17 18:00 09/17/17 21:00 (Azulfidine) 500 mg BID PO 09/17/17 21:00 09/17/17 22:07 (Desyrel) 50 mg HS PO 09/17/17 21:00 09/17/17 21:07 (Oscal-D 250-125) 500 mg BID PO 09/17/17 21:00 09/17/17 21:07 Patient Own Medication PT OWN MED: HUMIRA(ADALIMUMAB) 40 MG SQ Q 7 DAYS Q7D SQ 09/23/17 09:00 Future Hold (Duoneb Neb) 1 ampule Q2HR NEB PRN INH 09/17/17 17:45 Assessment and Plan Problem List: (1) AV block ICD Codes: I44.30 - Unspecified atrioventricular block Plan: In sinus rhythm Doing well No pause overnight Ok to Follow up as OP if necessary (2) Aortic stenosis ICD Codes: I35.0 - Nonrheumatic aortic (valve) stenosis Plan: SP TAVR Doing better Mindy Romero MD Sep 18, 2017 07:37
--- NOTE | 2017-09-18 07:58 | MB ---
cc: AIDAN BENJAMIN MD, HANSCY M.D. [facility], [facility] DATE OF CONSULTATION 09/17/2017 REASON FOR CONSULTATION AV block status post TAVR. HISTORY Mrs. Cervantes is [id number] female with a history of diabetes mellitus, high blood pressure, hyperlipidemia, severe aortic stenosis, COPD, who will undergo TAVR. During the procedure, the patient developed a complete AV block. Back into sinus rhythm. I was consulted for evaluation and management. The chart was reviewed. The patient was evaluated. ALLERGIES None reported. SOCIAL HISTORY Negative for smoking and drinking. FAMILY HISTORY Noncontributory to her current medical condition. MEDICATIONS Mrs. Cervantes is currently on: 1. Ancef 2. Acetaminophen 3. Amlodipine 5 mg a day 4. Aspirin 5. Lipitor 40 mg a day 6. Plavix 75 mg a day 7. Losartan 100 mg a day 8. Protonix 9. Trazodone REVIEW OF SYSTEMS She refers no chest pain or chest discomfort. No shortness of breath. Refers feeling better. No vomiting. No fever. PHYSICAL EXAM Alert, fully oriented. VITAL SIGNS: Blood pressure 122/57, pulse 93, respiratory 18. LUNGS: Ventilated. CARDIOVASCULAR: S1-S2 regular. No gallop or murmur. ABDOMEN: Soft. No mass. No bruits. EXTREMITIES: No edema. NECK: Right jugular area with central catheter. Electrocardiogram sinus rhythm with diffuse ST changes, now QRS. LABORATORY DATA Hemoglobin 12.1, white blood cell 6.0, potassium 4.0, creatinine 0.71, INR 1.1. ASSESSMENT AND RECOMMENDATIONS Mrs. Cervantes is stable. She has a now complex tachyarrhythmia. She has a normal ejection fraction around 60%. During procedure, develop an AV block. This most likely a swelling or compression of the node, but the patient currently as mentioned before, she has a narrow complex QRS. No AV dissociation. I think the AV block was temporary. She will be observed overnight. If stable in the morning and no significant pause observed, the patient can be discharged home. I will see her in the morning. MD LIDIA Cardozo/MIKEY /7:31 AM /7:38 AM
[2017-09-18] MEDS: CLOPIDOGREL 75 MG TAB PO SCH (08:25)
[2017-09-18] MEDS: ASPIRIN 81 MG CHEW TAB PO SCH (08:25)
[2017-09-18] MEDS: sulfaSALAzine 500 MG TAB PO SCH (08:26)
[2017-09-18] MEDS: SUCRALFATE 1 GM TAB PO SCH ×2 (08:26→13:00)
[2017-09-18] MEDS: CALCIUM/VITAMIN D 250 MG/125 U TAB PO SCH (08:26)
[2017-09-18] MEDS: PANTOPRAZOLE SOD 40 MG DELAYED RELEASE TAB PO SCH (08:27)
[2017-09-18 08:30] VITALS: O2SAT 92
--- NOTE | 2017-09-18 08:39 | PD.CAR.PN ---
CVT Progress Note Subjective/Hospital Course: 76-year-old female with a past medical history of severe symptomatically aortic stenosis, peripheral arterial disease status post aortobifem bypass, COPD , diabetes, hypertension, hyperlipidemia. She presents for elective transcatheter aortic valve replacement. She underwent uncomplicated placement, Intraoperatively she did have a short time period where she was in third-degree heart block requiring transvenous pacing, however upon arrival to the CVICU she is back in normal sinus rhythm. She was then seen and eval by Dr Romero EF normal 60% , no further bradycardia or heart block during the night , she is sitting up in chair, with minimal discomfort . NSR on monitor surgery : 09/17 Transcatheter aortic valve replacement with a 26 Evolut R Corevalve Balloon aortic valvuloplasty with an 18 True Balloon Percutaneous left and right femoral access with Perclose closure of the left femoral artery Objective: GENERAL: A&0 x 3 SKIN: Warm and dry. bilateral groin dressing in place, old dry blood to right groin, no surrounding hematoma , + distal pulses HEAD: Normocephalic. EYES: No scleral icterus. No injection or drainage. NECK: Supple, trachea midline. No JVD or lymphadenopathy. CARDIOVASCULAR: Regular rate and rhythm without murmurs, gallops, or rubs. RIJ CVC with temp pacer RESPIRATORY: Breath sounds equal bilaterally. No accessory muscle use. GASTROINTESTINAL: Abdomen soft, non-tender, nondistended. MUSCULOSKELETAL: No cyanosis, or edema. BACK: Nontender without obvious deformity. No CVA tenderness. Vital Signs Date Time Temp Pulse Resp B/P (MAP) Pulse Ox O2 Delivery O2 Flow Rate FiO2 09/18/17 07:00 96 09/18/17 07:00 98.7 92 16 151/69 (96) 92 09/18/17 07:00 92 Room Air 09/18/17 03:00 98.4 86 16 131/60 (83) 92 09/18/17 03:00 91 Room Air 09/18/17 03:00 86 09/17/17 23:00 93 Room Air 09/17/17 23:00 98.1 85 16 108/45 (66) 92 Arterial Line 09/17/17 23:00 84 09/17/17 20:24 96 Nasal Cannula 2.00 09/17/17 19:00 97.8 93 16 122/57 (78) 98 Arterial Line 09/17/17 19:00 89 09/17/17 19:00 98 Nasal Cannula 2.00 09/17/17 15:00 96 Nasal Cannula 2.00 09/17/17 15:00 73 09/17/17 15:00 66 09/17/17 15:00 97.1 68 18 100/50 (67) 96 108/40 (62) 09/17/17 14:40 97.1 70 16 108/54 (72) 94 123/46 (71) 09/17/17 10:00 97.4 69 18 171/76 (107) 95 Result Diagram: 09/17/17 1015 09/17/17 1015 Telemetry: NSR (1) AV block Plan: resolved (2) Aortic stenosis (3) Diastolic CHF due to valvular disease (4) S/P TAVR (transcatheter aortic valve replacement) Plan: diuresis , and dc meds per cardiology pt stable ok to dc home from CVS standpoint when cleared by Cardiology Lexy Dickerson Sep 18, 2017 08:39
[2017-09-18] MEDS ORDERED: amLODIPine BESYLATE 5 MG TAB PO SCH (09:00)
[2017-09-18] MEDS ORDERED: LOSARTAN 50 MG TAB PO SCH (09:00)
--- NOTE | 2017-09-18 10:14 | PD.CARD.PN ---
Subjective Subjective Remarks no overnight events no complaints Objective Medications Current Medications Medications (Trade) Dose Ordered Sig/Mina Route Start Time Stop Time Status Last Admin Lactated Ringer's 1,000 ml @ 30 mls/hr Q24H PRN IV 09/17/17 10:15 09/20/17 10:14 Sodium Chloride 500 ml @ 30 mls/hr [id number] PRN IV 09/17/17 10:15 09/20/17 10:14 (Lopressor) 25 mg SENIOR WEB SERVICES DEVELOPER PRN PO 09/17/17 10:15 09/20/17 10:14 (Betadine 5% Antisepsis Kit) 1 applic SENIOR WEB SERVICES DEVELOPER PRN EACH NARE 09/17/17 10:15 09/20/17 10:14 (Chlorhexidine 2% Cloth) 3 pack SENIOR WEB SERVICES DEVELOPER PRN TOPICAL 09/17/17 10:15 09/20/17 10:14 09/17/17 11:50 Sodium Chloride 1,000 ml @ 125 mls/hr Q8H IV 09/17/17 10:30 09/18/17 03:45 Cefazolin Sodium/ Dextrose 50 ml @ 100 mls/hr SENIOR WEB SERVICES DEVELOPER PRN IV 09/17/17 10:15 09/20/17 10:14 09/17/17 11:27 (Bactroban Nasal 2% Oint) 1 applic SENIOR WEB SERVICES DEVELOPER PRN EACH NARE 09/17/17 10:15 09/20/17 10:14 09/17/17 11:50 (Tylenol) 650 mg Q4H PRN PO 09/17/17 14:15 09/18/17 14:14 (Aspirin Chew) 81 mg DAILY PO 09/17/17 16:00 09/18/17 08:25 (Plavix) 75 mg DAILY PO 09/17/17 16:00 09/18/17 08:25 (D50w (Vial) Inj) 50 ml UNSCH PRN IV PUSH 09/17/17 14:15 (Glucagon Inj) 1 mg UNSCH PRN OTHER 09/17/17 14:15 (Norvasc) 5 mg DAILY PO 09/18/17 09:00 09/18/17 08:27 (Lipitor) 40 mg HS PO 09/17/17 21:00 09/17/17 21:07 ([place] 5-325 Mg) 1 tab Q8H PRN PO 09/17/17 14:15 09/18/17 03:44 (Synthroid) 75 mcg DAILY@0600 PO 09/18/17 06:00 09/18/17 06:23 (Cozaar) 100 mg DAILY PO 09/18/17 09:00 09/18/17 08:26 (Protonix) 40 mg BID PO 09/17/17 21:00 09/18/17 08:27 (Carafate) 1 gm QID PO 09/17/17 18:00 09/18/17 08:26 (Azulfidine) 500 mg BID PO 09/17/17 21:00 09/18/17 08:26 (Desyrel) 50 mg HS PO 09/17/17 21:00 09/17/17 21:07 (Oscal-D 250-125) 500 mg BID PO 09/17/17 21:00 09/18/17 08:26 Patient Own Medication PT OWN MED: HUMIRA(ADALIMUMAB) 40 MG SQ Q 7 DAYS Q7D SQ 09/23/17 09:00 Future Hold (Duoneb Neb) 1 ampule Q2HR NEB PRN INH 09/17/17 17:45 Vital Signs / I&O Vital Signs Date Time Temp Pulse Resp B/P (MAP) Pulse Ox O2 Delivery O2 Flow Rate FiO2 09/18/17 08:30 92 21 09/18/17 07:00 96 09/18/17 07:00 98.7 92 16 151/69 (96) 92 09/18/17 07:00 92 Room Air 09/18/17 03:00 98.4 86 16 131/60 (83) 92 09/18/17 03:00 91 Room Air 09/18/17 03:00 86 09/17/17 23:00 93 Room Air 09/17/17 23:00 98.1 85 16 108/45 (66) 92 Arterial Line 09/17/17 23:00 84 09/17/17 20:24 96 Nasal Cannula 2.00 09/17/17 19:00 97.8 93 16 122/57 (78) 98 Arterial Line 09/17/17 19:00 89 09/17/17 19:00 98 Nasal Cannula 2.00 09/17/17 15:00 96 Nasal Cannula 2.00 09/17/17 15:00 73 09/17/17 15:00 66 09/17/17 15:00 97.1 68 18 100/50 (67) 96 108/40 (62) 09/17/17 14:40 97.1 70 16 108/54 (72) 94 123/46 (71) I/O 09/17/17 09/17/17 09/17/17 09/18/17 09/18/17 09/18/17 06:59 14:59 22:59 06:59 14:59 22:59 Intake Total 2400 ml 250 ml 1490 ml Output Total 775 ml 775 ml Balance 2400 ml -525 ml 715 ml Intake Oral 240 ml IV Total 250 ml 1250 ml Other 2400 ml Output Urine Total 775 ml 775 ml # Bowel Movements 0 0 Physical Exam GENERAL: Well-nourished, well-developed patient. SKIN: Warm and dry. HEAD: Normocephalic. EYES: No scleral icterus. No injection or drainage. NECK: Supple, trachea midline. No JVD or lymphadenopathy. CARDIOVASCULAR: Regular rate and rhythm without murmurs, gallops, or rubs. RESPIRATORY: Breath sounds equal bilaterally. No accessory muscle use. GASTROINTESTINAL: Abdomen soft, non-tender, nondistended. EXTREMITIES: No cyanosis, or edema. NEUROLOGICAL: Awake, alert, and oriented x 3. Non-focal. Laboratory Laboratory Tests Test 09/17/17 10:15 White Blood Count 6.0 TH/MM3 Red Blood Count 3.29 MIL/MM3 Hemoglobin 12.8 GM/DL Hematocrit 35.0 % Mean Corpuscular Volume 106.5 FL Mean Corpuscular Hemoglobin 39.1 PG Mean Corpuscular Hemoglobin Concent 36.7 % Red Cell Distribution Width 12.8 % Platelet Count 190 TH/MM3 Mean Platelet Volume 8.5 FL Neutrophils (%) (Auto) 68.6 % Lymphocytes (%) (Auto) 19.7 % Monocytes (%) (Auto) 8.4 % Eosinophils (%) (Auto) 2.6 % Basophils (%) (Auto) 0.7 % Neutrophils # (Auto) 4.1 TH/MM3 Lymphocytes # (Auto) 1.2 TH/MM3 Monocytes # (Auto) 0.5 TH/MM3 Eosinophils # (Auto) 0.2 TH/MM3 Basophils # (Auto) 0.0 TH/MM3 CBC Comment AUTO DIFF Differential Comment AUTO DIFF CONFIRMED Prothrombin Time 10.7 SEC Prothromb Time International Ratio 1.1 RATIO Activated Partial Thromboplast Time 25.9 SEC Blood Urea Nitrogen 20 MG/DL Creatinine 0.71 MG/DL Random Glucose 120 MG/DL Calcium Level 9.2 MG/DL Sodium Level 138 MEQ/L Potassium Level 4.0 MEQ/L Chloride Level 104 MEQ/L Carbon Dioxide Level 26.7 MEQ/L Anion Gap 7 MEQ/L Estimat Glomerular Filtration Rate 80 ML/MIN Assessment and Plan Problem List: (1) Aortic stenosis ICD Codes: I35.0 - Nonrheumatic aortic (valve) stenosis Plan: s/p Left TF TAVR with a 26mm Evolut Acute on chronic diastolic HF on exam No CV complaints Appreciate EP recs Recs: 1. Lasix 10mg IV x1 2. ASA and Plavix 3. PT/OT eval 4. Encourage ambulation and incentive spirometry 5. Cont home medications If continues to be stable will d/c home later today. (2) AV block ICD Codes: I44.30 - Unspecified atrioventricular block (3) Diastolic CHF due to valvular disease ICD Codes: I38 - Endocarditis, valve unspecified; I50.30 - Unspecified diastolic (congestive) heart failure (4) S/P TAVR (transcatheter aortic valve replacement) ICD Codes: Z95.2 - Presence of prosthetic heart valve Problem Qualifiers (1) Aortic stenosis: Qualified Codes: I35.0 - Nonrheumatic aortic (valve) stenosis Grabiel Austin MD Sep 18, 2017 10:14
[2017-09-18] MEDS ORDERED: ASPI81 PO (10:20)
--- NOTE | 2017-09-18 10:27 | HHI.DS ---
Discharge Summary Admission Date Sep 17, 2017 at 08:57 Discharge Date: Sep 18, 2017 Admitting Diagnosis SEVERE SYMPTOMATIC AORTIC STENOSIS (1) Aortic stenosis Diagnosis: Principal ICD Codes: I35.0 - Nonrheumatic aortic (valve) stenosis (2) Diastolic CHF due to valvular disease Diagnosis: Secondary ICD Codes: I38 - Endocarditis, valve unspecified; I50.30 - Unspecified diastolic (congestive) heart failure (3) S/P TAVR (transcatheter aortic valve replacement) Diagnosis: Secondary ICD Codes: Z95.2 - Presence of prosthetic heart valve (4) PAD (peripheral artery disease) ICD Codes: I73.9 - Peripheral vascular disease, unspecified Procedures LEFT TF TAVR Brief History 76 Y/O F WITH SEVERE SYMPTOMATIC , NHYA IIISX, DIASTOLIC DISFUNCTION CBC/BMP: 09/17/17 1015 09/17/17 1015 Significant Findings Laboratory Tests Test 09/17/17 10:15 Red Blood Count 3.29 MIL/MM3 (4.00-5.30) Mean Corpuscular Volume 106.5 FL (80.0-100.0) Mean Corpuscular Hemoglobin 39.1 PG (27.0-34.0) Mean Corpuscular Hemoglobin Concent 36.7 % (32.0-36.0) Monocytes (%) (Auto) 8.4 % (0.0-8.0) Blood Urea Nitrogen 20 MG/DL (7-18) Random Glucose 120 MG/DL (74-106) Estimat Glomerular Filtration Rate 80 ML/MIN (>89) PE at Discharge GENERAL: Well-nourished, well-developed patient. SKIN: Warm and dry. HEAD: Normocephalic. EYES: No scleral icterus. No injection or drainage. NECK: Supple, trachea midline. No JVD or lymphadenopathy. CARDIOVASCULAR: Regular rate and rhythm without murmurs, gallops, or rubs. RESPIRATORY: Breath sounds equal bilaterally. No accessory muscle use. GASTROINTESTINAL: Abdomen soft, non-tender, nondistended. EXTREMITIES: No cyanosis, or edema. NEUROLOGICAL: Awake, alert, and oriented x 3. Non-focal. Hospital Course MS. RENDON UNDERWENT SUCCESSFUL LEFT TF TAVR WITH A 26MM EVULOT VALVE. TRANSIENT AV BLOCK DURING PROCEDURE. EVALUATED BY EP NO NEED FOR PERMANENT PACEMAKER PLACEMENT. ACUTE ON CHRONIC HF IMPROVED WITH IV LASIX. NO CV COMPLAINTS, AMBULATING WITHOUT DIFFICULTY. STABLE TO BE D/C HOME TODAY Pt Condition on Discharge: Good Discharge Disposition: Discharge Home Discharge Instructions DIET: Follow Instructions for: As Tolerated, No Restrictions, Heart Healthy Diet Speech Therapy-Diet Recommenda: Regular Activities you can perform: Weight Bearing as Fina New Medications: Aspirin (Tgt Aspirin) 81 Mg Chw 81 MG PO DAILY for Angina for 30 Days, #30 EA Continued Medications: Adalimumab 2-Pack Inj (Humira 2-Pack Inj) 40 Mg/0.8 Ml Syr 40 MG SQ Q7D, #2 KIT Amlodipine (Amlodipine) 5 Mg Tab 5 MG PO DAILY for Blood Pressure Management, #30 TAB 0 Refills Atorvastatin (Lipitor) 40 Mg Tab 40 MG PO HS for Cholesterol Management, #30 TAB 0 Refills Calcium Carbonate-Cholecalciferol (Calcium 500 +D) 500-400 Mg-Unit Tab 1 TAB PO BID for Calcium Supplement, TAB 0 Refills Clopidogrel (Plavix) 75 Mg Tab 75 MG PO DAILY for Blood Clot Prevention, #30 TAB 0 Refills Hydrochlorothiazide (Hydrochlorothiazide) 12.5 Mg Tab 12.5 MG PO DAILY, #30 TAB 0 Refills Hydrocodone-Acetaminophen (Hydrocodone-Acetaminophen) 5-325 mg Tab 1 TAB PO DIRECTED PRN for PAIN, TAB 0 Refills Levothyroxine (Levothyroxine) 75 Mcg Tab 75 MCG PO DAILY for Thyroid, #30 TAB 0 Refills Losartan (Losartan) 100 Mg Tab 100 MG PO DAILY for Blood Pressure Management, #30 TAB 0 Refills Metoprolol Tartrate (Metoprolol Tartrate) 25 Mg Tab 12.5 MG PO BID, #60 TAB 0 Refills Multivitamin (Once Daily) 1 Each Tablet Pantoprazole (Protonix) 40 Mg Tab 40 MG PO BID for Reflux, #30 TAB 0 Refills Potassium Gluconate (Potassium Gluconate) 595 Mg (99 Mg) Tab Sucralfate (Sucralfate) 1 Gram Tab 1 GM PO QID for Duodenal ulcer, #120 TAB 0 Refills on empty stomach Sulfasalazine (Sulfasalazine) 500 Mg Tab 500 MG PO BID, #90 TAB 0 Refills Trazodone (Trazodone) 50 Mg Tab 50 MG PO HS for Control Depression, #30 TAB 0 Refills Grabiel Austin MD Sep 18, 2017 10:27
[2017-09-18 11:00] VITALS: BP 123/54; PULSE 90; PULSE 93; RESP 16; TEMP 98.4; O2SAT 93
[2017-09-18] MEDS ORDERED: FUROSEMIDE 20 MG/2 ML VIAL IV PUSH ONE (11:15)
--- NOTE | 2017-09-18 13:08 | ECHRPT ---
Indication: S/P TAVR CONCLUSIONS Normal left ventricular size. Mild concentric left ventricular hypertrophy. The left ventricular systolic function is grossly normal on limited imaging. Status-post percutaneous aortic valve replacement. TAVR Aortic valve area is 1.5 cm. Aortic valve mean gradient is 8 mmHg. BP: 151 / 69 HR: 96 Rhythm: Sinus MEASUREMENTS (Male / Female) Normal Values Technical Quality:Fair 2D ECHO LV Diastolic Diameter PLAX 3.3 cm 4.2 - 5.9 / 3.9 - 5.3 cm LV Systolic Diameter PLAX 2.1 cm IVS Diastolic Thickness 1.3 cm 0.6 - 1.0 / 0.6 - 0.9 cm LVPW Diastolic Thickness 1.3 cm 0.6 - 1.0 / 0.6 - 0.9 cm LV Relative Wall Thickness 0.8 LVOT Diameter 1.6 cm Aortic Root Diameter 1.8 cm LA Systolic Diameter LX 2.8 cm 3.0 - 4.0 / 2.7 - 3.8 cm DOPPLER AV Peak Velocity 197.7 cm/s AV Peak Gradient 15.6 mmHg AV Mean Gradient 8.0 mmHg AV Velocity Time Integral 31.4 cm LVOT Peak Velocity 143.0 cm/s LVOT Peak Gradient 8.2 mmHg LVOT Velocity Time Integral 23.4 cm AV Area Cont Eq vti 1.5 cm AV Area Cont Eq pk 1.5 cm Mitral E Point Velocity 132.0 cm/s Mitral A Point Velocity 148.0 cm/s Mitral E to A Ratio 0.9 FINDINGS LEFT VENTRICLE Normal left ventricular size. Mild concentric left ventricular hypertrophy. The left ventricular systolic function is grossly normal on limited imaging. AORTIC VALVE Status-post percutaneous aortic valve replacement. TAVR Aortic valve area is 1.5 cm. Aortic valve mean gradient is 8 mmHg. Grabiel Austin MD (Electronically Signed) Final Date:18 September 2017 13:07
--- NOTE | 2017-09-18 16:41 | EKG ---
Date Performed: 09/18/2017 Time Performed: 03:40:46 PTAGE: 76 years EKG: Sinus rhythm rSr'(V1) - probable normal variant Lateral ST-T changes suggest myocardial injury/ischemia Abnormal ECG PREVIOUS TRACING : 09/17/2017 10.02 Since the prior tracing, ST segment changes are new and sincere cardial ischemia needs to be excluded clinically. DOCTOR: Radha Mariano Interpretating Date/Time 09/18/2017 16:40:22
[2017-09-23] MEDS ORDERED: ADALIMUMAB SQ SCH (09:00)
== END 2017-09-18 15:45 | disposition home or self-care (01) | DRG 266 ==
LOC: HDIC 08:57 → HCVI 15:30
PROVIDERS: ADMIT Radiology Vascular & Interventional Radiology; ATTEND Radiology Vascular & Interventional Radiology
PROC: 02RF38Z Replacement of Aortic Valve with Zooplastic Tissue, Percutaneous Approach (ICD-10-PCS; principal; 2017-09-17 11:27)
PROC: 5A1223Z Performance of Cardiac Pacing, Continuous (ICD-10-PCS; 2017-09-17 11:27)
PROC: B246ZZ4 Ultrasonography of Right and Left Heart, Transesophageal (ICD-10-PCS; 2017-09-17 11:27)
DX: I35.2 Nonrheumatic aortic (valve) stenosis with insufficiency (principal); I50.33 Acute on chronic diastolic (congestive) heart failure; I44.2 Atrioventricular block, complete; J44.9 Chronic obstructive pulmonary disease, unspecified; I11.0 Hypertensive heart disease with heart failure; M06.9 Rheumatoid arthritis, unspecified; E78.5 Hyperlipidemia, unspecified; Z87.11 Personal history of peptic ulcer disease; K21.9 Gastro-esophageal reflux disease without esophagitis; E03.9 Hypothyroidism, unspecified; R00.0 Tachycardia, unspecified; E11.51 Type 2 diabetes mellitus with diabetic peripheral angiopathy without gangrene; Z00.6 Encounter for examination for normal comparison and control in clinical research program
CPT/HCPCS: 33210; 33361; 80048; 85002; 85025; 85610; 85730; 86850; 86900; 86901; 86920; 92986; 93005; 93308; 94150; 94640; 94667; 94668; C1760; C1769; C1893; G0269; J0171; J0690; J1644; J1940; J2250; J2370; J2710; J2720; J3010; J7030; Q9967

== ENCOUNTER 2017-09-18 18:09 | Inpatient (IN) | payer OTHER, MEDICARE ==
[2017-09-18] VITALS (9 sets, daily range): BP systolic 101–131; BP diastolic 46–66; PULSE 38–60; RESP 16–20; TEMP 98–101; O2SAT 97–100
[~2017-09-18] VITALS: Ht 160 cm; Wt 71.5 kg
[~2017-09-18 18:09] MED LIST changes: +AMLO5TAB2 PO; +ASPI81 PO; +CALC1TAB12 PO; +HUMI40KI SQ; +HYDR-3516 PO; +LOSA100T PO; +SUCR1TAB PO; +SULF500T3 PO; +TRAZ50TA12 PO; -ZOLP5TAB3 PO
[2017-09-18] MEDS ORDERED: SODIUM CHLOR 0.9% 1000 ML INJ 1,000 ML IV SCH (18:30)
[2017-09-18 18:56] LABS: AUTOMATED NEUTROPHIL # 6.5 TH/MM3 (1.8-7.7); BASOPHIL % 0.3 % (0.0-2.0); EOSINOPHIL % 0.4 % (0.0-4.0); HEMATOCRIT 28.9 % (35.0-46.0); HEMO FLAGS DIFF FINAL; LYMPH % 13.6 % (9.0-44.0); LYMPHOCYTE # 1.2 TH/MM3 (1.0-4.8); MEAN CORPUSCULAR HEMOGLOBIN 37.7 PG (27.0-34.0); MEAN CORPUSCULAR HGB CONC 34.6 % (32.0-36.0); MONO % 13.8 % (0.0-8.0); NEUT % 71.9 % (16.0-70.0); PLATELET COUNT 145 TH/MM3 (150-450); RED BLOOD COUNT 2.65 MIL/MM3 (4.00-5.30); RED CELL DISTRIBUTION WIDTH 13.1 % (11.6-17.2)
--- NOTE | 2017-09-18 19:01 | PD ---
HPI Chief Complaint: Chest Pain Time Seen by Provider: 18:17 Travel History International Travel<30 days: No Contact w/Intl Traveler<30days: No Traveled to known affect area: No History of Present Illness HPI 76-year-old female complains of generalized malaise and weakness and dizziness. Patient has history of aortic stenosis and diastolic CHF due to valvular disease, status post transcatheter aortic valve replacement and discharged today. Patient started having dizziness and lightheadedness and generalized malaise and weakness. EMS was called. Blood pressure was up and down and pulse was up and down. Patient was given atropine IV and transported the ED for evaluation. Patient denies any headache. Patient denies any chest pain. Patient states that she has shortness of breath. Patient denies abdominal pain. Patient denies any focal weakness or numbness of extremity. PFSH Past Medical History Hx Anticoagulant Therapy: Yes (PLAVIX ) Arthritis: Yes Asthma: No Autoimmune Disease: Yes (RA) Blood Disorders: No Anxiety: Yes Depression: No Cancer: No Cardiovascular Problems: Yes (HTN, AORTIC STENOSIS ) High Cholesterol: Yes Chemotherapy: No Chest Pain: No Congestive Heart Failure: No COPD: No Cerebrovascular Accident: No Diabetes: No Diminished Hearing: No Endocrine: Yes Gastrointestinal Disorders: Yes (gerd) GERD: Yes Glaucoma: No Genitourinary: No Headaches: No Hepatitis: No Hiatal Hernia: No Hypertension: Yes Immune Disorder: No Implanted Vascular Access Dvce: Yes Kidney Stones: No Musculoskeletal: Yes (OA AND RA, BACK PAIN) Psychiatric: Yes (CLAUSTRAPHOBIA) Reproductive: No Migraines: No Myocardial Infarction: No Radiation Therapy: No Renal Failure: No Seizures: No Sleep Apnea: No Thyroid Disease: Yes Ulcer: Yes Past Surgical History Abdominal Surgery: Yes AICD: No Arteriovenous Shunt: No Body Medical Devices: RIGHT ANKLE HARDWARE Cardiac Surgery: Yes (RIGHT LEG VEINS) Ear Surgery: No Endocrine Surgery: Yes (LEFT ADRENALECTOMY) Eye Surgery: Yes (CLAUDIA. CATARACT EXTRACT.) Genitourinary Surgery: No Gynecologic Surgery: Yes (HYSTERECTOMY ) Hysterectomy: Yes Insulin Pump: No Joint Replacement: Yes (LEFT SHOULDER) Oral Surgery: No Pacemaker: No Thoracic Surgery: No Other Surgery: Yes (75 hystorectomy, 5 screws right ankle, left shoulder replaced, right should) Social History Alcohol Use: Yes (LIQUOR, OCCASIONALLY) Tobacco Use: No (QUIT 2004) Substance Use: No Allergies-Medications (Allergen,Severity, Reaction): Coded Allergies: lisinopril (Unverified Allergy, Severe, ANGIOEDEMA, 09/18/17) shellfish derived (Unverified Allergy, Severe, Edema, 09/18/17) Reported Meds & Prescriptions Reported Meds & Active Scripts Active Tgt Aspirin (Aspirin) 81 Mg Chw 81 Mg PO DAILY 30 Days Reported Potassium Gluconate 595 Mg (99 Mg) Tab 1 Tab PO DAILY Calcium 500 +D (Calcium Carbonate-Cholecalciferol) 500-400 Mg-Unit Tab 1 Tab PO BID Trazodone (Trazodone HCl) 50 Mg Tab 50 Mg PO HS Hydrocodone-Acetaminophen 5-325 mg Tab 1 Tab PO Q6HR PRN Sucralfate 1 Gram Tab 1 Gm PO QID on empty stomach Amlodipine (Amlodipine Besylate) 5 Mg Tab 5 Mg PO DAILY Sulfasalazine 500 Mg Tab 500 Mg PO BID Losartan (Losartan Potassium) 100 Mg Tab 100 Mg PO DAILY Humira 2-Pack Inj (Adalimumab 2-Pack Inj) 40 Mg/0.8 Ml Syr 40 Mg SQ Q7D Once Daily (Multivitamin) 1 Each Tablet 1 Tab PO DAILY Protonix (Pantoprazole Sodium) 40 Mg Tab 40 Mg PO BID Hydrochlorothiazide 12.5 Mg Tab 12.5 Mg PO DAILY Metoprolol Tartrate 25 Mg Tab 12.5 Mg PO BID Levothyroxine (Levothyroxine Sodium) 75 Mcg Tab 75 Mcg PO DAILY Lipitor (Atorvastatin Calcium) 40 Mg Tab 40 Mg PO HS Plavix (Clopidogrel Bisulfate) 75 Mg Tab 75 Mg PO DAILY Review of Systems General / Constitutional: No: Fever Eyes: No: Visual changes HENT: Positive: Lightheadedness, No: Headaches Cardiovascular: No: Chest Pain or Discomfort Respiratory: No: Shortness of Breath Gastrointestinal: No: Abdominal Pain Genitourinary: No: Dysuria Musculoskeletal: No: Pain Skin: No Rash Neurologic: No: Weakness Psychiatric: No: Depression Endocrine: No: Polydipsia Hematologic/Lymphatic: No: Easy Bruising Physical Exam Narrative GENERAL: Well-nourished, well-developed patient. SKIN: Focused skin assessment warm/dry. HEAD: Normocephalic. EYES: No scleral icterus. No injection or drainage. NECK: Supple, trachea midline. No JVD or lymphadenopathy. CARDIOVASCULAR: Irregular rate and rhythm without murmurs, gallops, or rubs. RESPIRATORY: Breath sounds equal bilaterally. No accessory muscle use. GASTROINTESTINAL: Abdomen soft, non-tender, nondistended. MUSCULOSKELETAL: No cyanosis, or edema. BACK: Nontender without obvious deformity. No CVA tenderness. Neurologic exam normal. Data Data Last Documented VS Vital Signs Date Time Temp Pulse Resp B/P (MAP) Pulse Ox O2 Delivery O2 Flow Rate FiO2 09/18/17 18:18 43 16 Nasal Cannula 2.00 09/18/17 18:18 101.0 131/58 (82) 100 Orders Orders Electrocardiogram (09/18/17 18:27) Complete Blood Count With Diff (09/18/17 18:) Comprehensive Metabolic Panel (09/18/17:) Creatine Kinase (Cpk) (09/18/17 18:) Troponin I (09/18/17 18:) Prothrombin Time / Inr (Pt) (09/18/17 18:) Act Partial Throm Time (Ptt) (09/18/17 18:) Thyroid Stimulating Hormone (09/18/17 18:) Chest, Single Ap (09/18/17 18:27) Iv Access Insert/Monitor (09/18/17 18:27) Ecg Monitoring (09/18/17 18:27) Oximetry (09/18/17 18:27) Admit Order (Ed Use Only) (09/18/17 18:29) Sodium Chlor 0.9% 1000 Ml Inj (Ns 1000 M (09/18/17 18:30) MDM Medical Decision Making Medical Screen Exam Complete: Yes Emergency Medical Condition: Yes Interpretation(s) EKG show bigeminy and third degree AV block. Differential Diagnosis Differential diagnosis including third degree AV block Narrative Course 76-year-old female with lightheadedness dizziness and generalized malaise and weakness. Status post transcatheter aortic valve replacement. EKG shows third- degree AV block. Learning And Development Officer Dr. Ferrer was contacted. Dr. Ferrer came in to see the patient. Patient will be admitted and pending pacemaker placement. Diagnosis Primary Impression: Third degree AV block Admitting Information Admitting Physician Requests: Admit Blake Lehman MD Sep 18, 2017 19:01
--- NOTE | 2017-09-18 19:01 | RADRPT ---
EXAM DATE/TIME: 09/18/2017 18:38 [facility] COMPARISON: CHEST SINGLE AP, September 01, 2017, 13:57. INDICATIONS : Short of breath MEDICAL HISTORY : Cardiovascular disease. Hypertension. SURGICAL HISTORY : Hysterectomy. lt adrenalectomy, heart value replacement ENCOUNTER: Initial ACUITY: 1 day PAIN SCORE: 0/10 LOCATION: chest FINDINGS: Postoperative aortic valvular surgery. Basilar atelectasis. No effusion. No pneumothorax. Heart size mildly enlarged. Previous left shoulder joint replacement. CONCLUSION: 1. Subsegmental atelectasis or scarring at the lung bases. Previous left shoulder joint replacement. Donald Ferrer MD on September 18, 2017 at 18:57 Board Certified Radiologist. This report was verified electronically.
[2017-09-18 19:04] LABS: INTERNATIONAL NORMALIZED RATIO 1.1 RATIO; PROTHROMBIN TIME - PATIENT 11.4 SEC (9.8-11.6)
[2017-09-18 19:06] LABS: ALT (GPT) 20 U/L (10-53); ANION GAP 10 MEQ/L (5-15); AST (GOT) 54 U/L (15-37); BICARBONATE 21.8 MEQ/L (21.0-32.0); BLOOD UREA NITROGEN 16 MG/DL (7-18); CHLORIDE 109 MEQ/L (98-107); GLOMERULAR FILTRATION RATE 54 ML/MIN (>89); SODIUM (NA) 141 MEQ/L (136-145)
[2017-09-18 19:08] LABS: POTASSIUM 3.4 MEQ/L (3.5-5.1)
[2017-09-18 19:15] LABS: ALKALINE PHOSPHATASE 56 U/L (45-117); CREATINE KINASE 199 U/L (26-192); TOTAL BILIRUBIN ADULT 0.5 MG/DL (0.2-1.0)
[2017-09-18] MEDS ORDERED: MORPHINE SULFATE 2 MG/ML INJ IV PUSH ONE (19:15)
[2017-09-18] MEDS ORDERED: ONDANSETRON HCL 4 MG/2 ML VIAL IV PUSH ONE (19:15)
[2017-09-18 19:33] LABS: CKMB 8.5 NG/ML (0.5-3.6)
--- NOTE | 2017-09-18 20:55 | PD.CONS ---
HPI Consult Requested By Primary Care Physician Non-Staff History of Present Illness 76-year-old female with past medical history significant for PAD, RA, COPD, diabetes, hypertension and hyperlipidemia severe symptomatic aortic stenosis s/ p Left TF TAVR 09/17/17 discharge today that presents to the ED via EMS for evaluation of dizziness. EKG done by EMS shows 3 degree AV Block. Currently she remains hemodynamically stable with no CV complaints. Patient was evaluated by Dr. Romero after TAVR. Denies chest pain, shortness of breath, syncope, palpitations, leg edema, fevers, chills, nausea, vomiting, diarrhea. Review of Systems Consitutional: DENIES: Fatigue, Fever, Chills, Weight gain, Weight loss Eyes: DENIES: Amaurosis Fugax, Change in vision HEENT: COMPLAINS OF: Lightheadedness, DENIES: Change in hearing Respiratory: DENIES: See HPI, Cough, Snoring, Shortness of breath, Wheezing, Sputum production Cardiovascular: DENIES: See HPI, Chest pain, Palpitations, Syncope, Tachycardia Gastrointestinal: DENIES: Nausea, Vomiting, Change in bowel habits, Reflux, Bloody stools, Melena Genitourinary: DENIES: Urinary incontinence, Difficulty voiding Integumentary: DENIES: Rash Neurologic: DENIES: Tingling or numbness, Memory problems, Poor Balance, Stroke symptoms Musculoskeletal: DENIES: Joint pain, Muscle pain, Limited range of motion, Back pain Psychiatric: DENIES: Anxiety, Depression, Sleep disturbances Hematologic: DENIES: Bruising tendencies, Bleeding tendencies Endocrine: DENIES: Weight gain, Weight loss, Thyroid disease Past Family Social History Allergies: Coded Allergies: lisinopril (Unverified Allergy, Severe, ANGIOEDEMA, 09/18/17) shellfish derived (Unverified Allergy, Severe, Edema, 09/18/17) Past Medical History 1. PAD. 2. COPD. 3. Diabetes. 4. Hypertension. 5. Gastric ulcers. 6. Hyperlipidemia. 7. Rheumatoid arthritis. 8. Chronic diastolic dysfunction. 9. Severe symptomatic aortic stenosis. Past Surgical History s/p Left TF TAVR 26mm Evolut Reported Medications Reported Meds & Active Scripts Active Tgt Aspirin (Aspirin) 81 Mg Chw 81 Mg PO DAILY 30 Days Reported Potassium Gluconate 595 Mg (99 Mg) Tab 1 Tab PO DAILY Calcium 500 +D (Calcium Carbonate-Cholecalciferol) 500-400 Mg-Unit Tab 1 Tab PO BID Trazodone (Trazodone HCl) 50 Mg Tab 50 Mg PO HS Hydrocodone-Acetaminophen 5-325 mg Tab 1 Tab PO Q6HR PRN Sucralfate 1 Gram Tab 1 Gm PO QID on empty stomach Amlodipine (Amlodipine Besylate) 5 Mg Tab 5 Mg PO DAILY Sulfasalazine 500 Mg Tab 500 Mg PO BID Losartan (Losartan Potassium) 100 Mg Tab 100 Mg PO DAILY Humira 2-Pack Inj (Adalimumab 2-Pack Inj) 40 Mg/0.8 Ml Syr 40 Mg SQ Q7D Once Daily (Multivitamin) 1 Each Tablet 1 Tab PO DAILY Protonix (Pantoprazole Sodium) 40 Mg Tab 40 Mg PO BID Hydrochlorothiazide 12.5 Mg Tab 12.5 Mg PO DAILY Metoprolol Tartrate 25 Mg Tab 12.5 Mg PO BID Levothyroxine (Levothyroxine Sodium) 75 Mcg Tab 75 Mcg PO DAILY Lipitor (Atorvastatin Calcium) 40 Mg Tab 40 Mg PO HS Plavix (Clopidogrel Bisulfate) 75 Mg Tab 75 Mg PO DAILY Active Ordered Medications Current Medications Medications (Trade) Dose Ordered Sig/Mina Route Start Time Stop Time Status Last Admin Sodium Chloride 1,000 ml @ 100 mls/hr Q10H IV 09/18/17 18:30 09/18/17 18:49 Family History Noncontributory Social History No tobacco No alcohol No illicit drug use Physical Exam Vital Signs Vital Signs Date Time Temp Pulse Resp B/P (MAP) Pulse Ox O2 Delivery O2 Flow Rate FiO2 09/18/17 19:17 44 20 101/49 (66) 97 Nasal Cannula 2.00 09/18/17 18:37 44 18 100 Nasal Cannula 2.00 09/18/17 18:18 43 16 Nasal Cannula 2.00 09/18/17 18:18 101.0 43 16 131/58 (82) 100 Nasal Cannula 2.00 09/18/17 18:12 101.0 43 16 131/58 (82) Physical Exam GENERAL: Well-nourished, well-developed patient. SKIN: Warm and dry. HEAD: Normocephalic. EYES: No scleral icterus. No injection or drainage. NECK: Supple, trachea midline. No JVD or lymphadenopathy. CARDIOVASCULAR: Regular rate and rhythm without murmurs, gallops, or rubs. RESPIRATORY: Breath sounds equal bilaterally. No accessory muscle use. GASTROINTESTINAL: Abdomen soft, non-tender, nondistended. EXTREMITIES: No cyanosis, or edema. NEUROLOGICAL: Awake, alert, and oriented x 3. Non-focal. Laboratory Laboratory Tests Test 09/18/17 18:33 White Blood Count 9.0 Red Blood Count 2.65 Hemoglobin 10.0 Hematocrit 28.9 Mean Corpuscular Volume 109.0 Mean Corpuscular Hemoglobin 37.7 Mean Corpuscular Hemoglobin Concent 34.6 Red Cell Distribution Width 13.1 Platelet Count 145 Mean Platelet Volume 9.1 Neutrophils (%) (Auto) 71.9 Lymphocytes (%) (Auto) 13.6 Monocytes (%) (Auto) 13.8 Eosinophils (%) (Auto) 0.4 Basophils (%) (Auto) 0.3 Neutrophils # (Auto) 6.5 Lymphocytes # (Auto) 1.2 Monocytes # (Auto) 1.2 Eosinophils # (Auto) 0.0 Basophils # (Auto) 0.0 CBC Comment DIFF FINAL Differential Comment Prothrombin Time 11.4 Prothromb Time International Ratio 1.1 Activated Partial Thromboplast Time 26.0 Blood Urea Nitrogen 16 Creatinine 1.01 Random Glucose 162 Total Protein 5.1 Albumin 2.7 Calcium Level 7.5 Alkaline Phosphatase 56 Aspartate Amino Transf (AST/SGOT) 54 Alanine Aminotransferase (ALT/SGPT) 20 Total Bilirubin 0.5 Sodium Level 141 Potassium Level 3.4 Chloride Level 109 Carbon Dioxide Level 21.8 Anion Gap 10 Estimat Glomerular Filtration Rate 54 Total Creatine Kinase 199 Creatine Kinase MB 8.5 Creatine Kinase MB % 4.3 Troponin I 8.39 Thyroid Stimulating Hormone 3rd Gen 4.130 Result Diagram: 09/18/17183209/18/171832 Imaging Last Impressions Chest X-Ray 09/18/171826 Signed Impressions: Service Date/Time: September 18:38 - CONCLUSION: 1. Subsegmental atelectasis or scarring at the lung bases. Previous left shoulder joint replacement. Donald Ferrer MD Assessment and Plan Problem List: (1) AV block ICD Codes: I44.30 - Unspecified atrioventricular block Plan: 76 y/o F with 3 degree AV Block in the setting of recent TAVR placement. EKG shows 3 degree AV Block. She remains hemodynamically stable with adequate BP. Troponin elevation due to recent procedure, Type 2 VT, no need for heparinization. Patient will need PPM. Case has been discuss with Dr. Romero for PPM placement in AM. In the meantime admit to CVICU start lo dose Dopamine or Isuprel. Hold AV blocking agents. IV Fluids. Keep NPO after midnight. Recommendations: -Consult inspector paper products -Admit to CVICU -Start Dopamine or Isuprel. -Atropine at bedside -Keep pacerpads in place -Hold AV blocking agents. -IV Fluids. -Keep NPO after midnight for PPM with Dr. Romero in AM. (2) Diastolic CHF due to valvular disease ICD Codes: I38 - Endocarditis, valve unspecified; I50.30 - Unspecified diastolic (congestive) heart failure (3) Aortic stenosis ICD Codes: I35.0 - Nonrheumatic aortic (valve) stenosis (4) S/P TAVR (transcatheter aortic valve replacement) ICD Codes: Z95.2 - Presence of prosthetic heart valve Grabiel Austin MD Sep 18, 2017 20:55
[2017-09-18] MEDS ORDERED: POTASSIUM PHOSPHATE MONOBASIC 500 MG TAB PO PRN (21:30)
[2017-09-18] MEDS ORDERED: RESP: ALBUTEROL 2.5 MG/IPRATROPIUM 0.5 MG NEB (PRN) INH (21:30)
[2017-09-18] MEDS ORDERED: hydrALAZINE HCL 20 MG/ML VIAL IV PUSH PRN (21:30)
[2017-09-18] MEDS ORDERED: CHLORHEXIDINE GLUCONATE 2 % 1 PACK (2 CLOTHS) TOP PRN (21:30)
[2017-09-18] MEDS ORDERED: POTASSIUM CHLOR 40 MEQ PREMIX 100 ML IV PRN ×2 (21:30)
[2017-09-18] MEDS ORDERED: MAGNESIUM OXIDE 400 MG TAB PO PRN (21:30)
[2017-09-18] MEDS ORDERED: POTASSIUM PHOSPHATE INJ 30 MMOL in SODIUM CHLOR 0.9% 250 ML INJ 250 ML IV PRN (21:30)
[2017-09-18] MEDS ORDERED: POTASSIUM PHOSPHATE MONOBASIC 500 MG TAB PO/TUBE PRN (21:30)
[2017-09-18] MEDS ORDERED: MAGNESIUM SULFATE INJ 2 GM in SODIUM CHLORIDE 0.9% INJ 96 ML IV PRN (21:30)
[2017-09-18] MEDS ORDERED: MISCELLANEOUS NURSING INFORMATION XX SCH (21:30)
[2017-09-18] MEDS ORDERED: POTASSIUM CHLOR 20 MEQ PREMIX 100 ML IV PRN (21:30)
[2017-09-18] MEDS ORDERED: MAGNESIUM SULFATE INJ 4 GM in SODIUM CHLORIDE 0.9% INJ 92 ML IV PRN (21:30)
[2017-09-18] MEDS ORDERED: ACETAMINOPHEN/HYDROcodone 325 MG/5 MG TAB PO PRN (21:30)
[2017-09-18] MEDS ORDERED: SODIUM PHOSPHATE INJ 30 MMOL in SODIUM CHLOR 0.9% 250 ML INJ 240 ML IV PRN (21:30)
--- NOTE | 2017-09-18 21:47 | HHI.HP ---
[facility] Service Critical Care Medicine Primary Care Physician Non-Staff Admission Diagnosis high-grade AV block Diagnosis: Chief Complaint: nausea, vomiting, fatigue Travel History International Travel<30 Days: No Contact w/Intl Traveler <30 Da: No Traveled to Known Affected Are: No History of Present Illness This is a 76-year-old female who is well-known to me who presented yesterday for elective transcutaneous aortic valve replacement for severe symptomatic aortic stenosis. Her operation was only compensated by temporary third-degree heart block which resolved spontaneously in the operating room. She had an otherwise uncomplicated operative course and was discharged this afternoon to home. On the way home, she started feeling fatigued with acute onset of weakness and nausea. She called EMS to bring her back to the hospital where she was found to be in third-degree heart block. However, she remained hemodynamically stable in the emergency department despite having third-degree heart block with bradycardia. Dr. Ferrer who performed the aortic valve replacement evaluated her in the emergency department and has asked Dr. Romero to evaluate for permanent pacemaker in the morning. I evaluated the patient in the emergency department. She states that the nausea she initially experienced has resolved. She also states that her fatigue is resolved. She denies any other complaints. States that her groin dressings are without any saturation. She states there've been no interval change in her medical history since leaving a few hours earlier. Review of Systems Constitutional: COMPLAINS OF: Diaphoretic episodes, Fatigue, DENIES: Fever, Weight gain, Weight loss, Chills, Dizziness, Change in appetite Eyes: DENIES: Blurred vision Respiratory: DENIES: Cough, Hemoptysis, Sputum production, Shortness of breath Cardiovascular: DENIES: Chest pain, Palpitations, Syncope, Dyspnea on Exertion , PND, Lower Extremity Edema, Orthopnea Gastrointestinal: COMPLAINS OF: Nausea, DENIES: Abdominal pain, Black stools, Bloody stools, Constipation, Diarrhea, Vomiting Musculoskeletal: DENIES: Muscle aches, Back pain, Neck pain Neurologic: DENIES: Abnormal gait, Headache, Localized weakness, Paresthesias, Seizures, Speech Problems Psychiatric: DENIES: Anxiety, Confusion Past Family Social History Allergies: Coded Allergies: lisinopril (Unverified Allergy, Severe, ANGIOEDEMA, 09/18/17) shellfish derived (Unverified Allergy, Severe, Edema, 09/18/17) Past Medical History Peripheral arterial disease COPD Diabetes Hypertension Gastric ulcers Hyperlipidemia Rheumatoid arthritis diastolic dysfunction Severe symptomatically aortic stenosis Past Surgical History Status post aortobifemoral bypass s/p TAVR 09/17. Reported Medications Potassium Gluconate 595 Mg (99 Mg) Tab Calcium 500 +D (Calcium Carbonate-Cholecalciferol) 500-400 Mg-Unit Tab 1 Tab PO BID Trazodone (Trazodone HCl) 50 Mg Tab 50 Mg PO HS Hydrocodone-Acetaminophen 5-325 mg Tab 1 Tab PO DIRECTED PRN Sucralfate 1 Gram Tab 1 Gm PO QID on empty stomach Amlodipine (Amlodipine Besylate) 5 Mg Tab 5 Mg PO DAILY Sulfasalazine 500 Mg Tab 500 Mg PO BID Losartan (Losartan Potassium) 100 Mg Tab 100 Mg PO DAILY Humira 2-Pack Inj (Adalimumab 2-Pack Inj) 40 Mg/0.8 Ml Syr 40 Mg SQ Q7D Once Daily (Multivitamin) 1 Each Tablet Protonix (Pantoprazole Sodium) 40 Mg Tab 40 Mg PO BID Hydrochlorothiazide 12.5 Mg Tab 12.5 Mg PO DAILY Metoprolol Tartrate 25 Mg Tab 12.5 Mg PO BID Levothyroxine (Levothyroxine Sodium) 75 Mcg Tab 75 Mcg PO DAILY Lipitor (Atorvastatin Calcium) 40 Mg Tab 40 Mg PO HS Plavix (Clopidogrel Bisulfate) 75 Mg Tab 75 Mg PO DAILY Active Ordered Medications See MAR Family History Reviewing the chart and found to be noncontributory to her acute illness Social History Denies tobacco, EtOH, drugs of abuse Physical Exam Vital Signs Vital Signs Date Time Temp Pulse Resp B/P (MAP) Pulse Ox O2 Delivery O2 Flow Rate FiO2 09/18/17 21:37 45 18 105/66 (79) 98 Nasal Cannula 2.00 09/18/17 19:17 44 20 101/49 (66) 97 Nasal Cannula 2.00 09/18/17 18:37 44 18 100 Nasal Cannula 2.00 09/18/17 18:18 43 16 Nasal Cannula 2.00 09/18/17 18:18 101.0 43 16 131/58 (82) 100 Nasal Cannula 2.00 09/18/17 18:12 101.0 43 16 131/58 (82) Physical Exam GENERAL: Elderly frail female, lying in bed, no acute distress HEENT: Normocephalic. Atraumatic. Pupils equal, round, reactive, conjugate. Mucous membranes are moist NECK: Trachea is midline. There is no JVD. There is a small dressing over the right IJ were prior introducer sheath was placed yesterday. This dressing is clean dry and intact. CHEST: Room air. Unlabored. Equal chest rise. CARDIOVASCULAR: Bradycardic rate, regular rhythm. Appears third-degree heart block on telemetry blood pressure is adequate. ABDOMEN: Soft, nontender, nondistended. No guarding. MUSCULOSKELETAL: Pulses 2+. No peripheral edema. Bilateral groin sites without evidence of hematoma, small dressings intact. Extremities are warm and well-perfused NEUROLOGICAL: RASS 0. GCS 15. Follows commands. No focal deficits.. Laboratory Laboratory Tests Test 09/18/17 18:33 White Blood Count 9.0 Red Blood Count 2.65 Hemoglobin 10.0 Hematocrit 28.9 Mean Corpuscular Volume 109.0 Mean Corpuscular Hemoglobin 37.7 Mean Corpuscular Hemoglobin Concent 34.6 Red Cell Distribution Width 13.1 Platelet Count 145 Mean Platelet Volume 9.1 Neutrophils (%) (Auto) 71.9 Lymphocytes (%) (Auto) 13.6 Monocytes (%) (Auto) 13.8 Eosinophils (%) (Auto) 0.4 Basophils (%) (Auto) 0.3 Neutrophils # (Auto) 6.5 Lymphocytes # (Auto) 1.2 Monocytes # (Auto) 1.2 Eosinophils # (Auto) 0.0 Basophils # (Auto) 0.0 CBC Comment DIFF FINAL Differential Comment Prothrombin Time 11.4 Prothromb Time International Ratio 1.1 Activated Partial Thromboplast Time 26.0 Blood Urea Nitrogen 16 Creatinine 1.01 Random Glucose 162 Total Protein 5.1 Albumin 2.7 Calcium Level 7.5 Alkaline Phosphatase 56 Aspartate Amino Transf (AST/SGOT) 54 Alanine Aminotransferase (ALT/SGPT) 20 Total Bilirubin 0.5 Sodium Level 141 Potassium Level 3.4 Chloride Level 109 Carbon Dioxide Level 21.8 Anion Gap 10 Estimat Glomerular Filtration Rate 54 Total Creatine Kinase 199 Creatine Kinase MB 8.5 Creatine Kinase MB % 4.3 Troponin I 8.39 Thyroid Stimulating Hormone 3rd Gen 4.130 Result Diagram: 09/18/17 1833 09/18/17 1833 Imaging Last Impressions Chest X-Ray 09/18/177 Signed Impressions: Service Date/Time: September 18:38 - CONCLUSION: 1. Subsegmental atelectasis or scarring at the lung bases. Previous left shoulder joint replacement. Donald Ferrer MD Septic Shock Reassessment Septic shock perfusion: reassessment completed Caprini VTE Risk Assessment Caprini VTE Risk Assessment: Mod/High Risk (score >= 2) Caprini Risk Assessment Model Point Value = 1 Point Value = 2 Point Value = 3 Point Value = 5 Age 41-60 Minor surgery BMI > 25 kg/m2 Swollen legs Varicose veins or History of unexplained or recurrent spontaneous Oral contraceptives or hormone replacement Sepsis (< 1 month) Serious lung disease, including pneumonia (< 1 month) Abnormal pulmonary function Acute myocardial infarction Congestive heart failure (< 1 month) History of inflammatory bowel disease Medical patient at bed rest Age 61-74 Arthroscopic surgery Major open surgery (> 45 min) Laparoscopic surgery (> 45 min) Malignancy Confined to bed (> 72 hours) Immobilizing plaster cast Central venous access Age >= 75 History of VTE Family history of VTE Factor V Leiden Prothrombin [id number] Lupus anticoagulant Anticardiolipin antibodies Elevated serum homocysteine Heparin-induced thrombocytopenia Other congenital or acquired thrombophilia Stroke (< 1 month) Elective arthroplasty Hip, pelvis, or leg fracture Acute spinal cord injury (< 1 month) Prophylaxis Regimen Total Risk Factor Score Risk Level Prophylaxis Regimen 0-1 Low Early ambulation 2 Moderate Order ONE of the following: *Sequential Compression Device (SCD) *Heparin 5000 units SQ BID 3-4 Higher Order ONE of the following medications: *Heparin 5000 units SQ TID *Enoxaparin/Lovenox 40 mg SQ daily (WT < 150 kg, CrCl > 30 mL/min) *Enoxaparin/Lovenox 30 mg SQ daily (WT < 150 kg, CrCl > 10-29 mL/min) *Enoxaparin/Lovenox 30 mg SQ BID (WT < 150 kg, CrCl > 30 mL/min) AND/OR *Sequential Compression Device (SCD) 5 or more Highest Order ONE of the following medications: *Heparin 5000 units SQ TID (Preferred with Epidurals) *Enoxaparin/Lovenox 40 mg SQ daily (WT < 150 kg, CrCl > 30 mL/min) *Enoxaparin/Lovenox 30 mg SQ daily (WT < 150 kg, CrCl > 10-29 mL/min) *Enoxaparin/Lovenox 30 mg SQ BID (WT < 150 kg, CrCl > 30 mL/min) AND *Sequential Compression Device (SCD) Assessment and Plan Assessment and Plan Assessment: 76-year-old female with peripheral arterial disease and severe symptomatic aortic stenosis now postop day 1 status post transcatheter aortic valve replacement. She was discharged home this afternoon now represents with third-degree heart block. We will admit her to the cardiac vascular intensive care unit. Agree with elective physiology consult for permanent pacemaker. Her positive cardiac enzymes are likely secondary to her transcutaneous aortic valve replacement and manipulation of her heart yesterday and likely do not represent acute coronary syndrome. We will recheck one additional set of troponins to ensure there downtrending as we would expect post procedure. I discussed the plan of care with Dr. Ferrer who agrees. Third-degree heart block EP consult Nothing by mouth for probable permanent pacemaker in the morning Currently hemodynamically stable. Hold beta blockers Would have low threshold for temporary transvenous pacer if she becomes unstable s/p TAVR with groin access 09/17 Anti-coagulation per Dr. Ferrer Maintenance IV fluids Watch urine output closely Hypertension Add back home antihypertensives as needed, HOLD rate controlling agents Goal systolic blood pressure less than 160 Hyperlipidemia Restart home statin GERD Restart home PPI COPD Nebs when necessary Wean oxygen for goal SPO2 greater than 90% Aggressive pulmonary toilet Hypothyroidism Restart home Synthroid Disposition: Admit to ICU. NPO for possible pacemaker in AM. Code Status Full Code Discussed Condition With Nicholas Alvarez MD Sep 18, 2017 21:47
[2017-09-18] MEDS: CALCIUM/VITAMIN D 250 MG/125 U TAB PO SCH (22:00)
[2017-09-18] MEDS: SODIUM CHLOR 0.9% 1000 ML INJ 1,000 ML IV SCH (22:00)
[2017-09-19] VITALS (18 sets, daily range): BP systolic 95–156; BP diastolic 43–84; PULSE 35–116; RESP 16–20; TEMP 97.5–98.7; O2SAT 92–97
[2017-09-19] MEDS: POTASSIUM CHLOR 20 MEQ PREMIX 100 ML IV PRN ×2 (00:57→04:28)
[2017-09-19] MEDS: ONDANSETRON HCL 4 MG/2 ML VIAL IV PUSH PRN ×3 (01:10→15:35)
[2017-09-19 02:10] LABS: HEMATOCRIT 30.4 % (35.0-46.0); MEAN CELL VOLUME 108.9 FL (80.0-100.0); MEAN CORPUSCULAR HEMOGLOBIN 37.1 PG (27.0-34.0); MEAN CORPUSCULAR HGB CONC 34.1 % (32.0-36.0); PLATELET COUNT 138 TH/MM3 (150-450); RED CELL DISTRIBUTION WIDTH 13.2 % (11.6-17.2); REVIEW FLAG FINAL; WHITE BLOOD COUNT 7.4 TH/MM3 (4.0-11.0)
[2017-09-19 02:39] LABS: BICARBONATE 26.1 MEQ/L (21.0-32.0); POTASSIUM 3.8 MEQ/L (3.5-5.1)
[2017-09-19] MEDS: CHLORHEXIDINE GLUCONATE 2 % 1 PACK (2 CLOTHS) TOP SCH (04:00)
[2017-09-19] MEDS: LEVOTHYROXINE SODIUM 75 MCG TAB PO SCH (05:38)
[2017-09-19] MEDS: SODIUM CHLOR 0.9% 1000 ML INJ 1,000 ML IV SCH ×2 (05:44→21:50)
[2017-09-19] MEDS ORDERED: ATROPINE SULFATE 1 MG/10 ML SYRINGE ONE (07:52)
[2017-09-19] MEDS: SUCRALFATE 1 GM TAB PO SCH ×3 (08:00→21:00)
[2017-09-19] MEDS ORDERED: PROPOFOL 200 MG/20 ML AMP ONE (08:17)
[2017-09-19] MEDS ORDERED: MIDAZOLAM HCL 2 MG/2 ML VIAL ONE (08:51)
[2017-09-19] MEDS ORDERED: KETAMINE HCL 500 MG/10 ML VIAL ONE (08:51)
[2017-09-19] MEDS ORDERED: LIDOCAINE HCL 2% 50 ML VIAL ONE (08:52)
[2017-09-19] MEDS ORDERED: VANCOMYCIN 500 MG VIAL ONE (08:53)
[2017-09-19] MEDS ORDERED: VANCOMYCIN HCL 1000 MG VIAL ONE (08:53)
[2017-09-19] MEDS ORDERED: ceFAZolin INJ 1,000 MG VIAL ONE (08:53)
[2017-09-19] MEDS ORDERED: NON-FORMULARY DRUG (Potassium Gluconate 1 TAB) PO SCH (09:00)
[2017-09-19] MEDS ORDERED: GLUCAGON 1 MG/ML VIAL IM PRN (09:45)
[2017-09-19] MEDS ORDERED: DEXTROSE 50% IN WATER 50 ML VIAL(D50) IV PUSH PRN (09:45)
[2017-09-19] MEDS ORDERED: GLUCAGON 1 MG/ML VIAL OTHER PRN (09:45)
[2017-09-19] MEDS ORDERED: SODIUM CHLORIDE 0.9% FLUSH 10 ML FLUSH IV FLUSH PRN (10:00)
[2017-09-19] MEDS ORDERED: ACETAMINOPHEN/CODEINE 300 MG/30 MG TAB PO PRN ×2 (10:00)
--- NOTE | 2017-09-19 10:03 | HHI.CCPN ---
Subjective Remarks/Hospital Course 76-year-old female complains of generalized malaise and weakness and dizziness. Patient has history of aortic stenosis and diastolic CHF due to valvular disease, status post transcatheter aortic valve replacement and discharged today. Patient started having dizziness and lightheadedness and generalized malaise and weakness. EMS was called. Blood pressure was up and down and pulse was up and down. Patient was given atropine IV and transported the ED for evaluation. Patient denies any headache. Patient denies any chest pain. Patient states that she has shortness of breath. Patient denies abdominal pain. Patient denies any focal weakness or numbness of extremity. Subjective 09/19: Pacemaker placement today. Heart rate currently in 30s. Asymptomatic. Pain controlled. Objective Vital Signs Date Time Temp Pulse Resp B/P (MAP) Pulse Ox O2 Delivery O2 Flow Rate FiO2 09/19/17 08:00 35 09/19/17 08:00 98.6 16 113/48 (69) 95 09/19/17 08:00 Nasal Cannula 5.00 Intake and Output 09/19/17 09/19/17 09/20/17 08:00 16:00 00:00 Intake Total 1340 ml Output Total 0 ml Balance 1340 ml Result Diagram: 09/19/17 0130 09/19/17 0130 Imaging Last Impressions Chest X-Ray 09/18/171826 Signed Impressions: Service Date/Time: September 18:38 - CONCLUSION: 1. Subsegmental atelectasis or scarring at the lung bases. Previous left shoulder joint replacement. Donald Ferrer MD Objective Remarks GENERAL: 76 -year-old female, resting in bed, no acute distress HEENT: Normocephalic. Atraumatic. Pupils equal, round, reactive. Mucous membranes are moist NECK: Trachea is midline. There is no JVD. There is a small dressing over the right IJ were prior introducer sheath was placed. This dressing is clean dry and intact. CHEST: Room air. Unlabored. Equal chest rise. CARDIOVASCULAR: Bradycardic and irregular,. S1 and S2 no S4. ABDOMEN: Soft, nontender, nondistended. No guarding. MUSCULOSKELETAL: Pulses 2+. No peripheral edema. Bilateral groin sites without evidence of hematoma, small dressings intact. Extremities are warm and well-perfused NEUROLOGICAL: Cranial nerves II through XII grossly intact. Strength is equal and measured bilaterally. Normal sensation. A/P Assessment and Plan Neuro/Psych: History of anxiety Narcotic use Continue trazodone 50 mg at night for anxiety On Strang 02/27 as needed for pain management CV: Third-degree heart block Chronic diastolic heart failure History of hypertension Dyslipidemia Severe aortic stenosis status post L TF TAVR 26 mm 09/[address] Ferrer PAD and peripheral vascular disease Elevated troponin - downward trend likely secondary to procedure 09/17 EPS for likely pacemaker placement currently ongoing. Continue atorvastatin 40 mill grams by mouth daily for dyslipidemia Continue clopidogrel 75 mg daily and aspirin 81 mg daily Holding rate controlling agents including metoprolol 12.5 mg twice a day. Holding amlodipine 5 mill grams daily and losartan 100 mg daily for hypertension. Containing hydrocortisone thiazide 12.5 mg by mouth daily Resp: History of COPD Nasal cannula to maintain saturations greater than equal to 90% Incentive spirometry while awake Scheduled bronchodilator therapy every 6 hours with albuterol/ipratropium aerosols GI: History of GERD/gastric ulcers Continue with pantoprazole 40 mill grams by mouth twice a day and sucralfate 1 g before meals at bedtime with meals : No indication for Wells catheter Endo: Hypothyroidism Diabetes mellitus Continue levothyroxine 75 mics grams by mouth daily. TSH slightly elevated 4.1. Recommend recheck in 3-6 weeks Sliding scale insulin Accu-Cheks before meals/at bedtime maintain euglycemia Novulin R low regimen Renal: Creatinine currently within normal limits Monitor urine output Accurate I's and O's Heme: Thrombocytopenia Macrocytosis Monitor CBC daily. Follow trends ID: Monitor for infection FEN: Chronic potassium gluconate use Converted. MSK/Rheum: Rheumatoid arthritis Osteoarthritis Continue with sulfasalazine 500 mill grams by mouth twice a day PT evaluate and treat Access - Utilize peripheral IV. Central line if indicated Prophylaxis - GI - pantoprazole 40 mg twice a day - DVT - SCD/holding pharmacological prophylaxis for procedure today. Level 2 follow-up. Tx to [facility] in AM 12/16. to [facility] post pacemaker Dustin Almanza MD Sep 19, 2017 10:03
--- NOTE | 2017-09-19 10:06 | CATHPROC ---
[employer] HIS Report Study Information Study Number Admission Scheduled Start Study Start [id number] Sep 18 2017 6:31PM 09/19/2017 Sep 19 2017 8:39AM [place] Service Cardiac Pacer/ICD Admit Source Facility Department Other [facility] - Editor Department Physician and Clinical Staff Initial Mindy Torres Network Project Manager Erica Camara,WEFT STRAIGHTENER TECH2 Other Anesthesia, AIRBRUSH ARTIST TECHNICAL Recorder Tri Peraza,RN Scrub An Contreras,RT(R) TECH2 Procedures Performed Procedure Lead Insertion Equipment Time Senior Vice President Description Size Mfg Part Number Used/Scraped 09:37 BIOTRONIK LEAD, SOLIA 60 PRO MRI * [id number] Used 09:43 BIOTRONIK LEAD, SOLIA 60 53 PRO MRI * [id number] Used 09:44 BI[employer]RONIK PACEMAKER, ELUNA 8 DR-T DDDR [id number] Used DERMABOND, ADHESIVE SKIN [id number] 09:38 CORDIS/PACER * Used GLUE MINI *[id number] 09:38 [employer] SUTURE, STRIP PLUS 1/2" * Used *[id number] 09:38 [employer] PACER BASILIO, LIMB * 2530 *[id number] Used [id number] 09:38 [employer] PACER PACK, PACER CUSTOM * Used *[id number] 09:38 [employer] MEDICAL PACER SAFE SHEATH, FR7, 13CM FR 7 [id number] Used 09:43 [employer] MEDICAL PACER SAFE SHEATH, FR7, 13CM FR 7 [id number] Used 09:12 Needle Sponge Count 2 2 Used 09:12 Needle Sponge Count 2 22 Used 09:12 Needle Sponge Count 20 200 Used 09:13 Needle Sponge Count 4 4 Used SUTURE, 0 ETHIBOND [CT1] ([id number]), 8pk SUTURE, 2-0 VICRYL [CT1] ([id number]) SUTURE, 2-0 VICRYL [CT1] ([id number]) [id number] 09:38 [employer] [place],WARM AIR CCL * Used *[id number] [facility] PAD, ELECTROSURGICAL 09:38 * [id number] *[id number] Used SURGICAL GROUNDING ORANGE [id number] 09:38 [employer]. / * Used *[id number] Equipment Model, Serial, Lot Number and Expiration Data Description Model Number Serial Number Lot Number Expiration Date LEAD, SOLIA 60 PRO MRI [id number] 11-05-2018 LEAD, SOLIA 60 53 PRO MRI [id number] 08-05-2019 PACEMAKER, ELUNA 8 ROMI [id number] 05-05-2018 History: Current Medications Medication Dosage/Unit Route Frequency Last Date/Time Taken PLAVIX Statins (any) Beta Khari History: Allergies Allergy Reaction lisinopril ANGIOEDEMA Shellfish Edema shellfish derived Edema History: Risk Factors Hypertension Dyslipidemia Yes Yes Peripheral Artery Chronic Lung Diabetes Disease Disease Labs Hgb (g/dl) Hct (%) WBC (l/cumm) Platelets (thousands) 11.60-17.00 35.00-51.00 4.00-11.00 150.00-450.00 10.4 30.4 7.4 138 Glucose (mg/dl) BUN (mg/dl) Creatinine (mg/dl) BUN:Creatinine (1:x) 74.00-106.00 7.00-18.00 0.50-1.30 10.00-20.00 151 19 1.3 14.6 Na (meq/l) K (meq/l) 136.00-145.00 3.50-5.10 141 3.8 INR (PTT:PT) 0.90-1.10 1.1 Troponin I (ng/ml) 0.02-0.05 7.14 Medication Medication Total Dose (Bolus/Oral) Medication Total Dosage/Unit 2% XYLOCAINE 50 mL Medications (Bolus/Oral) Medication Time Given Dosage/Unit Administered By Reason 2% XYLOCAINE 09/19/2017 9:33:32 AM 50 mL Mindy Romero 50 mL 2% XYLOCAINE given in lab by Mindy Romero in Left shoulder via Subcutaneous. LEFT UPPER CHEST Initial Case Assessment Cardiovascular HR Rhythm NIBP Chest Pain 32 SB 101/52 0 Edema Present Skin color Skin None Normal Warm Dry Circulatory - Right Pulses Dorsalis Pedis 1 Scale (0,1,2,3,4,d) Circulatory - Left Pulses Dorsalis Pedis 1 Scale (0,1,2,3,4,d) Neurological State Oriented to time-place- Alert Moves all extremities person Respiration - General Respiration Rate SpO2 (%) O2 (lpm) (B/min) 18 96 6 Final Case Assessment Cardiovascular HR Rhythm NIBP Chest Pain 81 PACED 118/56 0 Edema Present Skin color Skin None Normal Warm Dry Circulatory - Right Pulses Dorsalis Pedis 1 Scale (0,1,2,3,4,d) Circulatory - Left Pulses Dorsalis Pedis 1 Scale (0,1,2,3,4,d) Neurological State Oriented to time-place- Alert Moves all extremities person Respiration - General Respiration Rate SpO2 (%) O2 (lpm) (B/min) 18 100 6 Chronological Log Time Study Chronological Log 8:39:28 Patient arrived via Bed. 8:39:29 Patient Name, D.O.B, / Armband Verified By R.N. 8:39:30 Consent signed by the physician and the patient and verified by the Editor Department staff. 8:39:31 Pre-op and post- op instructions given; patient acknowledges understanding of instructions. 8:39:36 Verbal Stimulation=2 Physical Stimulation=2 Airway=2 Respiration=2 TOTAL=8. (0=absent, 1=li mited, 2=present) 8:39:50 Anesthesia at bedside. Assumes care of patient. see records for all meds and vitals during case 9:07:25 Reference ECG taken 9:07:39 Patient has been NPO for More than 6Hrs. 9:07:40 Skin Breakdown- right bandage CDI for previous IJ site from TAVR 9:09:16 Disposable Defibrillator Pads Placed On Patient. 9:09:17 Brianna Prominences Protected 9:09:18 IV Warmer Connected To Patient. 9:09:19 A # 20 IV was noted in the Hand (right). Grade = 0 9:10:07 History and physical on the chart or being dictated. Assessment: Initial Case, HR=32 BPM, Rhythm=SB, TLTT=955/52 mmhg, Chest Pain=0, Edema=None, Col or=Normal, Skin = Warm, Dry Right Pulses: Thuan Ped=1 9:10:08 Left Pulses: Thuan Ped=1 Neurological: State=Alert, Ox3, TREVIÑO Respiration: Resp=18 B/min, SpO2=96 %, O2=6 lpm 9:10:54 Table restraints applied according to hospital policy 9:10:55 Left Upper Chest Prepped Times Two. 9:11:00 Bovie ground pad applied to: RIGHT THIGH 9:11:08 2% CHLORHEXIDINE GLUCONATE WASH AND NASAL SWIPE DONE PRIOR TO PROCEDURE. FIRST Sponge And Instrument Count Done by An Contreras, RT(R) TECH2. 9:11:25 Hypo's: 4, Sponges: 20, Bovie/scratch: 2 Sutures: 10, Blades: 1, Instruments: ~INSTRU~, Syveck Patches: ~SYVECK PATCH~ 9:20:10 paged Time Out. Correct patient, procedure, procedure equipment, site and side verified with physician present. Time 9:32:58 concurred by MD, individual staff and AIRBRUSH ARTIST TECHNICAL. Time Out #2 - Consents verified, patient in correct position, all results are labled and display ed, safety precautions 9:32:59 taken, antibiotics administered. Time out concurred by MD, individual staff and AIRBRUSH ARTIST TECHNICAL in procedur e 9:33:28 Case Start 9:33:32 50 mL 2% XYLOCAINE given in lab by Mindy Romero in Left shoulder via Subcutaneous. LEFT UPP ER CHEST 9:34:37 Vascular access was obtained in the Subclav. Vein (Lft. 9:34:43 Vascular access was obtained in the Subclav. Vein (Rt). 9:35:21 Surgical Incision Made. 9:37:40 A pocket was created at the L Upper Chest. 9:38:16 A SAFE SHEATH, FR7, 13CM FR 7 was advanced into the Subclav. Vein (Lft using the Modified Se ldinger technique. 9:40:21 A LEAD, SOLIA 60 PRO MRI * was inserted and positioned in the RV. 9:40:28 Lead placement verified under fluoroscopy 9:40:29 The RV lead impedance and threshold being tested. 9:41:13 The RV lead was sutured to the fascia. 9:42:35 A SAFE SHEATH, FR7, 13CM FR 7 was advanced into the Subclav. Vein (Lft using the Modified Se ldinger technique. 9:42:50 A LEAD, SOLIA 60 53 PRO MRI * was inserted and positioned in the RA. 9:44:32 Lead placement verified under fluoroscopy 9:44:36 The Atrial lead impedance and threshold is being tested. 9:44:46 The Atrial lead was sutured to the fascia. 9:49:07 Pocket flushed with antibiotic solution 9:49:08 A PACEMAKER, ELUNA 8 DR-T DDDR was connected and placed in the pocket. SECOND Sponge And Instrument Count Done by An Contreras, RT(R) TECH2. 9:50:52 Hypo's: 4, Sponges: 20, Bovie/scratch: 2 Sutures: 10, Blades: 1, Instruments: 26, Syveck Patches: 0 9:51:06 The pocket was closed. 9:51:59 Case End 9:52:10 Implant Procedure was performed. 9:52:17 A PPM Implant . (Dual) 9:57:11 Steri-strips and a sterile dressing applied to site. 9:57:12 A sling was placed on the affected arm. Assessment: Final Case, HR=81 BPM, Rhythm=PACED, TQRD=701/56 mmhg, Chest Pain=0, Edema=None, Color=Normal, Skin = Warm, Dry Right Pulses: Thuan Ped=1 9:57:14 Left Pulses: Thuan Ped=1 Neurological: State=Alert, Ox3, TREVIÑO Respiration: Resp=18 B/min, ZeW6=162 %, O2=6 lpm 10:00:03 Sterile dressing applied to site 10:00:03 No case complications noted. 10:00:04 Cine recording checked. 10:00:05 Bedside Report will be given. 10:00:07 Implantable Device card placed in patient's chart. 10:00:09 DOCU called. Spoke to SHERIF 10:00:20 Defibrillator and ground pads removed. Skin intact. 10:05:42 AN H ASSIST WITH POCKET CLOSURE End Study - Contrast Media Used In Study Contrast Total Opened (mL) Total Used (mL) Total Wasted (mL) Unspecified 0 0 0 End Study - Maximum Contrast Load Max Contrast Load (mL) 275.0 End Study - Radiation Exposure Fluoro Time (minutes) 2.3 End Study - Patient Disposition Complications Transferred To Interventional Outcome No Telemetry Bed successful
[2017-09-19] MEDS: INSULIN NovoLIN REGULAR SUPPLEMENTAL SCALE SQ SCH ×3 (12:00→21:00)
[2017-09-19] MEDS: PANTOPRAZOLE SOD 40 MG DELAYED RELEASE TAB PO SCH ×2 (12:30→21:15)
[2017-09-19] MEDS: CLOPIDOGREL 75 MG TAB PO SCH (12:30)
[2017-09-19] MEDS: sulfaSALAzine 500 MG TAB PO SCH ×2 (12:30→21:14)
[2017-09-19] MEDS: ASPIRIN 81 MG CHEW TAB PO SCH (12:30)
[2017-09-19] MEDS: MULTIVITAMIN TAB PO SCH (12:30)
[2017-09-19] MEDS: CALCIUM/VITAMIN D 250 MG/125 U TAB PO SCH ×2 (12:30→21:15)
[2017-09-19] MEDS: DOCUSATE SODIUM 50 MG/SENNA 8.6 MG TAB PO SCH ×2 (12:30→21:00)
[2017-09-19] MEDS: HYDROCHLOROTHIAZIDE 12.5 MG CAP PO SCH (12:30)
--- NOTE | 2017-09-19 12:31 | PD.CARD.PN ---
Subjective Subjective Remarks no CV complaints s/p PPM Objective Medications Current Medications Medications (Trade) Dose Ordered Sig/Mina Route Start Time Stop Time Status Last Admin (Trandate Inj) 20 mg Q15M PRN IV PUSH 09/18/17 21:30 (Apresoline Inj) 10 mg Q30M PRN IV PUSH 09/18/17 21:30 (Mag-Ox) 800 mg UNSCH PRN PO 09/18/17 21:30 Magnesium Sulfate 4 gm/Sodium Chloride 100 ml @ 50 mls/hr UNSCH PRN IV 09/18/17 21:30 Magnesium Sulfate 2 gm/Sodium Chloride 100 ml @ 50 mls/hr UNSCH PRN IV 09/18/17 21:30 Potassium Chloride 100 ml @ 50 mls/hr Q2H PRN IV 09/18/17 21:30 Potassium Chloride 100 ml @ 50 mls/hr Q2H PRN IV 09/18/17 21:30 09/19/17 04:28 Potassium Chloride 100 ml @ 50 mls/hr Q2H PRN IV 09/18/17 21:30 Potassium Chloride 100 ml @ 25 mls/hr UNSCH PRN IV 09/18/17 21:30 (K-Phos) 2,000 mg Q4H PRN PO 09/18/17 21:30 (K-Phos) 2,000 mg UNSCH PRN PO/TUBE 09/18/17 21:30 Potassium Phosphate 30 mmol/ Sodium Chloride 260 ml @ 42 mls/hr UNSCH PRN IV 09/18/17 21:30 Sodium Phosphate 30 mmol/Sodium Chloride 250 ml @ 42 mls/hr UNSCH PRN IV 09/18/17 21:30 Sodium Chloride 1,000 ml @ 84 mls/hr [id number] IV 09/18/17 22:00 09/19/17 05:44 (Duoneb Neb) 1 ampule Q2HR NEB PRN INH 09/18/17 21:30 Miscellaneous Information 1 Q361D XX 09/18/17 21:30 (Chlorhexidine 2% Cloth) 3 pack Taper DAILY@04 TOP 09/19/17 04:00 09/15/18 03:59 09/19/17 04:00 (Chlorhexidine 2% Cloth) 3 pack UNSCH PRN TOP 09/18/17 21:30 (Lorena-Colace) 1 tab BID PO 09/19/17 09:00 (Aspirin Chew) 81 mg DAILY PO 09/19/17 09:00 (Lipitor) 40 mg HS PO 09/19/17 21:00 (Plavix) 75 mg DAILY PO 09/19/17 09:00 (Microzide) 12.5 mg DAILY PO 09/19/17 09:00 (Synthroid) 75 mcg DAILY@0600 PO 09/19/17 06:00 09/19/17 05:38 (Protonix) 40 mg BID PO 09/19/17 09:00 (Carafate) 1 gm ACHS PO 09/19/17 08:00 (Azulfidine) 500 mg BID PO 09/19/17 09:00 (Desyrel) 50 mg HS PO 09/19/17 21:00 (Oscal-D 250-125) 500 mg BID PO 09/18/17 22:00 (Theragran) 1 tab DAILY PO 09/19/17 09:00 Cefazolin Sodium/ Dextrose 50 ml @ 100 mls/hr Q8H IV 09/19/17 17:00 09/20/17 09:29 (Zofran Inj) 4 mg Q4H PRN IV PUSH 09/19/17 10:00 (Tylenol-Codeine #3) 1 tab Q4H PRN PO 09/19/17 10:00 (Tylenol-Codeine #3) 2 tab Q4H PRN PO 09/19/17 10:00 (NS Flush) 2 ml BID IV FLUSH 09/19/17 21:00 (NS Flush) 2 ml UNSCH PRN IV FLUSH 09/19/17 10:00 (Glucagon Inj) 1 mg STAT PRN IM 09/19/17 09:45 (D50w (Vial) Inj) 50 ml UNSCH PRN IV PUSH 09/19/17 09:45 (Glucagon Inj) 1 mg UNSCH PRN OTHER 09/19/17 09:45 (NovoLIN R SUPPLEMENTAL SCALE) 1 ACHS SLIDING SCALE SQ 09/19/17 12:00 Vital Signs / I&O Vital Signs Date Time Temp Pulse Resp B/P (MAP) Pulse Ox O2 Delivery O2 Flow Rate FiO2 09/19/17 08:00 35 09/19/17 08:00 98.6 35 16 113/48 (69) 95 09/19/17 08:00 95 Nasal Cannula 5.00 09/19/17 05:38 18 09/19/17 04:00 98.2 35 20 95/43 (60) 95 09/19/17 03:00 35 09/19/17 00:45 97 Nasal Cannula 5.00 09/18/17 23:19 38 09/18/17 23:00 98.0 42 20 102/46 (64) 98 09/18/17 22:55 42 09/18/17 22:00 60 09/18/17 21:37 45 18 105/66 (79) 98 Nasal Cannula 2.00 09/18/17 19:17 44 20 101/49 (66) 97 Nasal Cannula 2.00 09/18/17 18:37 44 18 100 Nasal Cannula 2.00 09/18/17 18:18 43 16 Nasal Cannula 2.00 09/18/17 18:18 101.0 43 16 131/58 (82) 100 Nasal Cannula 2.00 09/18/17 18:12 101.0 43 16 131/58 (82) I/O 09/18/17 09/18/17 09/18/17 09/19/17 09/19/17 09/19/17 07:00 15:00 23:00 07:00 15:00 23:00 Intake Total 1340 ml Output Total 0 ml Balance 1340 ml Intake Oral 240 ml IV Total 1100 ml Output Urine Total 0 ml # Voids 0 # Bowel Movements 0 Physical Exam GENERAL: Well-nourished, well-developed patient. SKIN: Warm and dry. HEAD: Normocephalic. EYES: No scleral icterus. No injection or drainage. NECK: Supple, trachea midline. No JVD or lymphadenopathy. CARDIOVASCULAR: Regular rate and rhythm without murmurs, gallops, or rubs. RESPIRATORY: Breath sounds equal bilaterally. No accessory muscle use. GASTROINTESTINAL: Abdomen soft, non-tender, nondistended. EXTREMITIES: No cyanosis, or edema. NEUROLOGICAL: Awake, alert, and oriented x 3. Non-focal. Laboratory Laboratory Tests Test 09/18/17 18:33 09/19/17 01:15 09/19/17 01:30 White Blood Count 9.0 TH/MM3 7.4 TH/MM3 Red Blood Count 2.65 MIL/MM3 2.80 MIL/MM3 Hemoglobin 10.0 GM/DL 10.4 GM/DL Hematocrit 28.9 % 30.4 % Mean Corpuscular Volume 109.0 FL 108.9 FL Mean Corpuscular Hemoglobin 37.7 PG 37.1 PG Mean Corpuscular Hemoglobin Concent 34.6 % 34.1 % Red Cell Distribution Width 13.1 % 13.2 % Platelet Count 145 TH/MM3 138 TH/MM3 Mean Platelet Volume 9.1 FL 8.8 FL Neutrophils (%) (Auto) 71.9 % Lymphocytes (%) (Auto) 13.6 % Monocytes (%) (Auto) 13.8 % Eosinophils (%) (Auto) 0.4 % Basophils (%) (Auto) 0.3 % Neutrophils # (Auto) 6.5 TH/MM3 Lymphocytes # (Auto) 1.2 TH/MM3 Monocytes # (Auto) 1.2 TH/MM3 Eosinophils # (Auto) 0.0 TH/MM3 Basophils # (Auto) 0.0 TH/MM3 CBC Comment DIFF FINAL Differential Comment Prothrombin Time 11.4 SEC Prothromb Time International Ratio 1.1 RATIO Activated Partial Thromboplast Time 26.0 SEC Blood Urea Nitrogen 16 MG/DL 19 MG/DL Creatinine 1.01 MG/DL 1.32 MG/DL Random Glucose 162 MG/DL 151 MG/DL Total Protein 5.1 GM/DL Albumin 2.7 GM/DL Calcium Level 7.5 MG/DL 8.1 MG/DL Alkaline Phosphatase 56 U/L Aspartate Amino Transf (AST/SGOT) 54 U/L Alanine Aminotransferase (ALT/SGPT) 20 U/L Total Bilirubin 0.5 MG/DL Sodium Level 141 MEQ/L 141 MEQ/L Potassium Level 3.4 MEQ/L 3.8 MEQ/L Chloride Level 109 MEQ/L 108 MEQ/L Carbon Dioxide Level 21.8 MEQ/L 26.1 MEQ/L Anion Gap 10 MEQ/L 7 MEQ/L Estimat Glomerular Filtration Rate 54 ML/MIN 39 ML/MIN Total Creatine Kinase 199 U/L Creatine Kinase MB 8.5 NG/ML Creatine Kinase MB % 4.3 % Troponin I 8.39 NG/ML 7.14 NG/ML Thyroid Stimulating Hormone 3rd Gen 4.130 uIU/ML Nasal Screen MRSA (PCR) MRSA NOT DETECTED Imaging Last 24 hours Impressions Chest X-Ray 09/18/17 2377 Signed Impressions: Service Date/Time: September 18:38 - CONCLUSION: 1. Subsegmental atelectasis or scarring at the lung bases. Previous left shoulder joint replacement. Donald Ferrer MD Assessment and Plan Problem List: (1) AV block ICD Codes: I44.30 - Unspecified atrioventricular block Plan: s/p PPM Doing well no complaints Recs: Continue home medications for CAD Continue ASA and Plavix Avoid electrolytes abnormalities Encourage ambulation and incentive spirometry (2) Diastolic CHF due to valvular disease ICD Codes: I38 - Endocarditis, valve unspecified; I50.30 - Unspecified diastolic (congestive) heart failure (3) Aortic stenosis ICD Codes: I35.0 - Nonrheumatic aortic (valve) stenosis (4) S/P TAVR (transcatheter aortic valve replacement) ICD Codes: Z95.2 - Presence of prosthetic heart valve Grabiel Austin MD Sep 19, 2017 12:31
--- NOTE | 2017-09-19 13:38 | RADRPT ---
EXAM DATE/TIME: 09/19/2017 13:12 [facility] COMPARISON: CHEST SINGLE AP, September 18, 2017, 18:38. INDICATIONS : Post pacemaker MEDICAL HISTORY : Cardiovascular disease. Hypertension SURGICAL HISTORY : left adrenalectomy, heart valve replacement. ENCOUNTER: Initial ACUITY: 1 day PAIN SCORE: 0/10 LOCATION: Bilateral chest FINDINGS: The patient is post pacer placement on the left. There is no pneumothorax. The heart is normal in siz e. The lungs appear clear. Incidental note is made of a left shoulder arthroplasty. The patient is post TAVR. CONCLUSION: 1. No pneumothorax identified post pacemaker placement. Abbe Khalil MD on September 19, 2017 at 13:34 Board Certified Radiologist. This report was verified electronically.
--- NOTE | 2017-09-19 15:09 | EKG ---
Date Performed: 09/19/2017 Time Performed: 11:23:28 PTAGE: 76 years EKG: Atrial sensed, ventricular paced rhythm. Abnormal ECG PREVIOUS TRACING : 09/18/2017 18.28 Compared to previous tracing, paced rhythm has replaced Sin us rhythm with complete heart block. DOCTOR: Silvino Petty Interpretating Date/Time 09/19/2017 15:07:07
[2017-09-19] MEDS: ceFAZolin 2 GM PREMIX 50 ML IV SCH (16:43)
[2017-09-19] MEDS ORDERED: traZODone HCL 50 MG TAB PO SCH (21:00)
[2017-09-19] MEDS ORDERED: ATORVASTATIN 40 MG TAB PO SCH (21:00)
[2017-09-19] MEDS: SODIUM CHLORIDE 0.9% FLUSH 10 ML FLUSH IV FLUSH SCH (21:14)
[2017-09-20] VITALS (14 sets, daily range): BP systolic 153–188; BP diastolic 70–80; PULSE 73–94; RESP 18–20; TEMP 98.8; O2SAT 93–98
[2017-09-20] MEDS: CHLORHEXIDINE GLUCONATE 2 % 1 PACK (2 CLOTHS) TOP SCH (00:40)
[2017-09-20] MEDS: ceFAZolin 2 GM PREMIX 50 ML IV SCH ×2 (00:54→10:00)
[2017-09-20] MEDS: LABETALOL HCL 100 MG/20 ML VIAL IV PUSH PRN ×2 (03:40→12:42)
[2017-09-20] MEDS: ONDANSETRON HCL 4 MG/2 ML VIAL IV PUSH PRN ×2 (04:16→12:49)
[2017-09-20] MEDS: LEVOTHYROXINE SODIUM 75 MCG TAB PO SCH (05:35)
[2017-09-20 06:29] LABS: AUTOMATED NEUTROPHIL # 6.4 TH/MM3 (1.8-7.7); BASOPHIL % 0.3 % (0.0-2.0); EOSINOPHIL % 0.2 % (0.0-4.0); HEMATOCRIT 26.5 % (35.0-46.0); HEMO FLAGS DIFF FINAL; LYMPH % 11.5 % (9.0-44.0); MEAN CORPUSCULAR HEMOGLOBIN 38.4 PG (27.0-34.0); MEAN CORPUSCULAR HGB CONC 35.5 % (32.0-36.0); MONO % 11.8 % (0.0-8.0); NEUT % 76.2 % (16.0-70.0); PLATELET COUNT 111 TH/MM3 (150-450); RED BLOOD COUNT 2.45 MIL/MM3 (4.00-5.30); RED CELL DISTRIBUTION WIDTH 13.1 % (11.6-17.2); WHITE BLOOD COUNT 8.4 TH/MM3 (4.0-11.0)
--- NOTE | 2017-09-20 06:49 | PQ ---
Physician Query Response Document PATIENT: BE RENDON : 1940 ADMIT DATE: 09/18/2017 6:31 PM DISCH DATE: RESPONDING PROVIDER #: agreene QUERY TEXT: Cause and Effect Relationship Please clarify in documentation the relationship, if any, between TAVR and COMPLETE HEART BLOCK Such as: -- Conditions are due to or associated -- Unrelated to each other -- Other, please specify The patient's Clinical Indicators include: PER H now postop day 1 status post transcatheter aortic valve replacement. She was discharged home this af ternoon now represents with third-degree heart block. Query created by: eVe Vidal on 09/19/2017 9:14 AM RESPONSE TEXT: The patient's 3rd degree heart block is directly related and due to her TAVR. Electronically signed by: Nicholas Layne MD 09/20/2017 6:45 AM
[2017-09-20 07:12] LABS: ALKALINE PHOSPHATASE 68 U/L (45-117); ALT (GPT) 375 U/L (10-53); ANION GAP 9 MEQ/L (5-15); AST (GOT) 617 U/L (15-37); BICARBONATE 23.7 MEQ/L (21.0-32.0); BLOOD UREA NITROGEN 19 MG/DL (7-18); CHLORIDE 109 MEQ/L (98-107); FREE T4 1.25 NG/DL (0.76-1.46); GLOMERULAR FILTRATION RATE 72 ML/MIN (>89); MAGNESIUM 1.8 MG/DL (1.5-2.5); POTASSIUM 3.2 MEQ/L (3.5-5.1); SODIUM (NA) 142 MEQ/L (136-145); TOTAL BILIRUBIN ADULT 0.4 MG/DL (0.2-1.0)
[2017-09-20] MEDS: INSULIN NovoLIN REGULAR SUPPLEMENTAL SCALE SQ SCH (08:00)
[2017-09-20] MEDS: DOCUSATE SODIUM 50 MG/SENNA 8.6 MG TAB PO SCH (09:00)
--- NOTE | 2017-09-20 09:26 | HHI.PR ---
Objective Vitals Vital Signs Date Time Temp Pulse Resp B/P (MAP) Pulse Ox O2 Delivery O2 Flow Rate FiO2 09/20/17 08:13 98 Nasal Cannula 3.00 09/20/17 06:00 78 09/20/17 05:00 78 09/20/17 04:42 157/72 (100) 09/20/17 04:06 173/72 (105) 09/20/17 04:00 76 09/20/17 03:30 93 18 184/80 (114) 93 09/20/17 03:00 94 09/20/17 02:00 90 09/20/17 01:00 94 09/20/17 00:00 88 09/19/17 23:21 98.7 91 16 140/63 (88) 95 09/19/17 23:00 91 09/19/17 22:00 116 09/19/17 21:00 100 09/19/17 20:20 98.6 85 18 152/68 (96) 92 09/19/17 20:00 80 09/19/17 19:00 79 09/19/17 18:00 80 09/19/17 17:42 19 09/19/17 17:00 104 09/19/17 16:00 84 09/19/17 15:00 84 09/19/17 15:00 97.5 84 19 147/84 (105) 94 09/19/17 14:00 82 09/19/17 13:00 86 09/19/17 12:30 98.2 85 17 156/71 (99) 93 I/O 09/19/17 09/19/17 09/19/17 09/20/17 09/20/17 09/20/17 07:00 15:00 23:00 07:00 15:00 23:00 Intake Total 1340 ml 223 ml 290 ml 530 ml Output Total 0 ml 500 ml Balance 1340 ml 223 ml 290 ml 30 ml Intake Oral 240 ml 240 ml 480 ml IV Total 1100 ml 223 ml 50 ml 50 ml Output Urine Total 0 ml 500 ml # Voids 0 2 # Bowel Movements 0 0 Result Diagram: 09/20/1753209/20/17532 A/P Assessment and Plan DW Dr. Romero. OK to DC once stable. Violet Mclean MD Sep 20, 2017 09:26
[2017-09-20] MEDS: CLOPIDOGREL 75 MG TAB PO SCH (09:57)
[2017-09-20] MEDS: PANTOPRAZOLE SOD 40 MG DELAYED RELEASE TAB PO SCH (09:57)
[2017-09-20] MEDS: sulfaSALAzine 500 MG TAB PO SCH (09:58)
[2017-09-20] MEDS: CALCIUM/VITAMIN D 250 MG/125 U TAB PO SCH (09:58)
[2017-09-20] MEDS: MULTIVITAMIN TAB PO SCH (09:58)
[2017-09-20] MEDS: SODIUM CHLORIDE 0.9% FLUSH 10 ML FLUSH IV FLUSH SCH (09:59)
[2017-09-20] MEDS: HYDROCHLOROTHIAZIDE 12.5 MG CAP PO SCH (09:59)
[2017-09-20] MEDS: ASPIRIN 81 MG CHEW TAB PO SCH (09:59)
[2017-09-20] MEDS ORDERED: POTASSIUM CHLORIDE 10 MEQ CONTROLLED RELEASE TAB PO ONE (10:00)
[2017-09-20] MEDS: SUCRALFATE 1 GM TAB PO SCH ×2 (10:00→13:00)
--- NOTE | 2017-09-20 10:07 | HHI.DS ---
Discharge Summary Admission Date Sep 18, 2017 at 18:31 Discharge Date: Sep 20, 2017 Admitting Diagnosis high-grade AV block (1) Hypertension ICD Code: I10 - Essential (primary) hypertension (2) Elevated troponin ICD Code: R74.8 - Abnormal levels of other serum enzymes Status: Acute (3) S/P TAVR (transcatheter aortic valve replacement) ICD Code: Z95.2 - Presence of prosthetic heart valve Status: Acute (4) Third degree AV block ICD Code: I44.2 - Atrioventricular block, complete Status: Acute Procedures Pacemaker placement Brief History - From Admission History of present illness from the admitting physician This is a 76-year-old female who is well-known to me who presented yesterday for elective transcutaneous aortic valve replacement for severe symptomatic aortic stenosis. Her operation was only compensated by temporary third-degree heart block which resolved spontaneously in the operating room. She had an otherwise uncomplicated operative course and was discharged this afternoon to home. On the way home, she started feeling fatigued with acute onset of weakness and nausea. She called EMS to bring her back to the hospital where she was found to be in third-degree heart block. However, she remained hemodynamically stable in the emergency department despite having third-degree heart block with bradycardia. Dr. Ferrer who performed the aortic valve replacement evaluated her in the emergency department and has asked Dr. Romero to evaluate for permanent pacemaker in the morning. I evaluated the patient in the emergency department. She states that the nausea she initially experienced has resolved. She also states that her fatigue is resolved. She denies any other complaints. States that her groin dressings are without any saturation. She states there've been no interval change in her medical history since leaving a few hours earlier. CBC/BMP: 09/20/17 0533 09/20/17 0533 Significant Findings Laboratory Tests Test 09/18/17 18:33 09/19/17 01:15 09/19/17 01:30 09/19/17 15:44 Red Blood Count 2.65 MIL/MM3 (4.00-5.30) 2.80 MIL/MM3 (4.00-5.30) Hemoglobin 10.0 GM/DL (11.6-15.3) 10.4 GM/DL (11.6-15.3) Hematocrit 28.9 % (35.0-46.0) 30.4 % (35.0-46.0) Mean Corpuscular Volume 109.0 FL (80.0-100.0) 108.9 FL (80.0-100.0) Mean Corpuscular Hemoglobin 37.7 PG (27.0-34.0) 37.1 PG (27.0-34.0) Platelet Count 145 TH/MM3 (150-450) 138 TH/MM3 (150-450) Neutrophils (%) (Auto) 71.9 % (16.0-70.0) Monocytes (%) (Auto) 13.8 % (0.0-8.0) Monocytes # (Auto) 1.2 TH/MM3 (0-0.9) Creatinine 1.01 MG/DL (0.50-1.00) 1.32 MG/DL (0.50-1.00) Random Glucose 162 MG/DL (74-106) 151 MG/DL (74-106) 144 MG/DL (74-106) Total Protein 5.1 GM/DL (6.4-8.2) Albumin 2.7 GM/DL (3.4-5.0) Calcium Level 7.5 MG/DL (8.5-10.1) 8.1 MG/DL (8.5-10.1) Aspartate Amino Transf (AST/SGOT) 54 U/L (15-37) Potassium Level 3.4 MEQ/L (3.5-5.1) Chloride Level 109 MEQ/L (98-107) 108 MEQ/L (98-107) Estimat Glomerular Filtration Rate 54 ML/MIN (>89) 39 ML/MIN (>89) Total Creatine Kinase 199 U/L (26-192) Creatine Kinase MB 8.5 NG/ML (0.5-3.6) Creatine Kinase MB % 4.3 % (0.0-4.0) Troponin I 8.39 NG/ML (0.02-0.05) 7.14 NG/ML (0.02-0.05) Thyroid Stimulating Hormone 3rd Gen 4.130 uIU/ML (0.358-3.740) Blood Urea Nitrogen 19 MG/DL (7-18) Test 09/20/17 05:33 Red Blood Count 2.45 MIL/MM3 (4.00-5.30) Hemoglobin 9.4 GM/DL (11.6-15.3) Hematocrit 26.5 % (35.0-46.0) Mean Corpuscular Volume 108.0 FL (80.0-100.0) Mean Corpuscular Hemoglobin 38.4 PG (27.0-34.0) Platelet Count 111 TH/MM3 (150-450) Neutrophils (%) (Auto) 76.2 % (16.0-70.0) Monocytes (%) (Auto) 11.8 % (0.0-8.0) Monocytes # (Auto) 1.0 TH/MM3 (0-0.9) Blood Urea Nitrogen 19 MG/DL (7-18) Random Glucose 116 MG/DL (74-106) Total Protein 5.7 GM/DL (6.4-8.2) Albumin 3.2 GM/DL (3.4-5.0) Calcium Level 8.3 MG/DL (8.5-10.1) Phosphorus Level 2.1 MG/DL (2.5-4.9) Aspartate Amino Transf (AST/SGOT) 617 U/L (15-37) Alanine Aminotransferase (ALT/SGPT) 375 U/L (10-53) Potassium Level 3.2 MEQ/L (3.5-5.1) Chloride Level 109 MEQ/L (98-107) Estimat Glomerular Filtration Rate 72 ML/MIN (>89) Imaging Last Impressions Chest X-Ray 09/19/17 0000 Signed Impressions: Service Date/Time: Tuesday, September 19, 2017 13:12 - CONCLUSION: 1. No pneumothorax identified post pacemaker placement. Abbe Khalil MD PE at Discharge GENERAL: This is a well-nourished, well-developed patient, in no apparent distress. CARDIOVASCULAR: Normal rate and regular rhythm without murmurs, gallops, or rubs. RESPIRATORY: Good respiratory efforts. Breath sounds equal and clear to auscultation bilaterally. GASTROINTESTINAL: Abdomen soft, non-tender, non-distended. Normal active bowel sounds MUSCULOSKELETAL: Left arm in a sling. NEURO: Alert & Oriented x4 to person, place, time, situation. Moves all ext x4 PSYCH: Appropriate mood and affect. Pt update on day of discharge Patient reports she is feeling well. She wants to go home. No chest pressure or shortness of breath. Ambulating. Hospital Course 76-year-old female complains of generalized malaise and weakness and dizziness. Patient has history of aortic stenosis and diastolic CHF due to valvular disease, status post transcatheter aortic valve replacement. The patient returned to the hospital and was found to be in third-degree heart block. She underwent successful pacemaker placement. The patient is discharge home in good condition. She will continue all of her chronic home medications. Pt Condition on Discharge: Good Discharge Disposition: Discharge Home Discharge Time: <= 30 minutes Discharge Instructions DIET: Follow Instructions for: Heart Healthy Diet Activities you can perform: Regular-No Restrictions, See Additionl Instruction Other Activity Instructions: Follow post pacemaker procedures. Follow up Referrals: Cardiology with Mindy Romero MD New Medications: Ondansetron (Zofran) 4 Mg Tab 4 MG PO Q6HR PRN for NAUSEA OR VOMITING, #15 TAB 0 Refills Continued Medications: Adalimumab 2-Pack Inj (Humira 2-Pack Inj) 40 Mg/0.8 Ml Syr 40 MG SQ Q7D, #2 KIT Amlodipine (Amlodipine) 5 Mg Tab 5 MG PO DAILY for Blood Pressure Management, #30 TAB 0 Refills Aspirin (Tgt Aspirin) 81 Mg Chw 81 MG PO DAILY for Angina for 30 Days, #30 EA Atorvastatin (Lipitor) 40 Mg Tab 40 MG PO HS for Cholesterol Management, #30 TAB 0 Refills Calcium Carbonate-Cholecalciferol (Calcium 500 +D) 500-400 Mg-Unit Tab 1 TAB PO BID for Calcium Supplement, TAB 0 Refills Clopidogrel (Plavix) 75 Mg Tab 75 MG PO DAILY for Blood Clot Prevention, #30 TAB 0 Refills Hydrochlorothiazide (Hydrochlorothiazide) 12.5 Mg Tab 12.5 MG PO DAILY, #30 TAB 0 Refills Hydrocodone-Acetaminophen (Hydrocodone-Acetaminophen) 5-325 mg Tab 1 TAB PO Q6HR PRN for PAIN, TAB 0 Refills Levothyroxine (Levothyroxine) 75 Mcg Tab 75 MCG PO DAILY for Thyroid, #30 TAB 0 Refills Losartan (Losartan) 100 Mg Tab 100 MG PO DAILY for Blood Pressure Management, #30 TAB 0 Refills Metoprolol Tartrate (Metoprolol Tartrate) 25 Mg Tab 12.5 MG PO BID, #60 TAB 0 Refills Multivitamin (Once Daily) 1 Each Tablet 1 TAB PO DAILY Pantoprazole (Protonix) 40 Mg Tab 40 MG PO BID for Reflux, #30 TAB 0 Refills Potassium Gluconate (Potassium Gluconate) 595 Mg (99 Mg) Tab 1 TAB PO DAILY Sucralfate (Sucralfate) 1 Gram Tab 1 GM PO QID for Duodenal ulcer, #120 TAB 0 Refills on empty stomach Sulfasalazine (Sulfasalazine) 500 Mg Tab 500 MG PO BID, #90 TAB 0 Refills Trazodone (Trazodone) 50 Mg Tab 50 MG PO HS for Control Depression, #30 TAB 0 Refills Violet Mclean MD Sep 20, 2017 10:07
--- NOTE | 2017-09-20 10:09 | HHI.DCPOC ---
Discharge Care Plan Diagnosis: (1) Third degree AV block (2) S/P TAVR (transcatheter aortic valve replacement) Goals to Promote Your Health * To prevent worsening of your condition and complications * To maintain your health at the optimal level Directions to Meet Your Goals Take your medications as prescribed Follow your dietary instruction Follow activity as directed Keep your appointments as scheduled Take your immunizations and boosters as scheduled If your symptoms worsen call your PCP, if no PCP go to Urgent Care Center or Emergency Room Smoking is Dangerous to Your Health. Avoid second hand smoke Call the 24-hour hour crisis hotline for domestic abuse at Violet Mclean MD Sep 20, 2017 10:09
--- NOTE | 2017-09-20 10:23 | PD.CARD.PN ---
Subjective Subjective Remarks Denies CP, dyspnea, dizziness, incisional pain, palpitations. Feels "good". Objective Medications Item Value Date Time Atorvastatin 40 mg 09/19/17 2100 Calcium HS/PO 09/19/172115 (Lipitor) Aspirin 81 mg 09/19/17 0900 (Aspirin Chew) DAILY/PO 09/20/17 0959 Clopidogrel 75 mg 09/19/17 0900 Bisulfate DAILY/PO 09/20/17 0957 (Plavix) Current Medications Medications (Trade) Dose Ordered Sig/Mina Route Start Time Stop Time Status Last Admin (Trandate Inj) 20 mg Q15M PRN IV PUSH 09/18/17 21:30 09/20/17 03:40 (Apresoline Inj) 10 mg Q30M PRN IV PUSH 09/18/17 21:30 (Mag-Ox) 800 mg UNSCH PRN PO 09/18/17 21:30 Magnesium Sulfate 4 gm/Sodium Chloride 100 ml @ 50 mls/hr UNSCH PRN IV 09/18/17 21:30 Magnesium Sulfate 2 gm/Sodium Chloride 100 ml @ 50 mls/hr UNSCH PRN IV 09/18/17 21:30 Potassium Chloride 100 ml @ 50 mls/hr Q2H PRN IV 09/18/17 21:30 Potassium Chloride 100 ml @ 50 mls/hr Q2H PRN IV 09/18/17 21:30 09/19/17 04:28 Potassium Chloride 100 ml @ 50 mls/hr Q2H PRN IV 09/18/17 21:30 Potassium Chloride 100 ml @ 25 mls/hr UNSCH PRN IV 09/18/17 21:30 (K-Phos) 2,000 mg Q4H PRN PO 09/18/17 21:30 (K-Phos) 2,000 mg UNSCH PRN PO/TUBE 09/18/17 21:30 Potassium Phosphate 30 mmol/ Sodium Chloride 260 ml @ 42 mls/hr UNSCH PRN IV 09/18/17 21:30 Sodium Phosphate 30 mmol/Sodium Chloride 250 ml @ 42 mls/hr UNSCH PRN IV 09/18/17 21:30 Sodium Chloride 1,000 ml @ 84 mls/hr [id number] IV 09/18/17 22:00 09/19/17 05:44 (Duoneb Neb) 1 ampule Q2HR NEB PRN INH 09/18/17 21:30 Miscellaneous Information 1 Q361D XX 09/18/17 21:30 (Chlorhexidine 2% Cloth) 3 pack Taper DAILY@04 TOP 09/19/17 04:00 09/15/18 03:59 09/19/17 04:00 (Chlorhexidine 2% Cloth) 3 pack UNSCH PRN TOP 09/18/17 21:30 (Lorena-Colace) 1 tab BID PO 09/19/17 09:00 (Aspirin Chew) 81 mg DAILY PO 09/19/17 09:00 09/20/17 09:59 (Lipitor) 40 mg HS PO 09/19/17 21:00 09/19/17 21:16 (Plavix) 75 mg DAILY PO 09/19/17 09:00 09/20/17 09:57 (Microzide) 12.5 mg DAILY PO 09/19/17 09:00 09/20/17 09:59 (Synthroid) 75 mcg DAILY@0600 PO 09/19/17 06:00 09/20/17 05:35 (Protonix) 40 mg BID PO 09/19/17 09:00 09/20/17 09:57 (Carafate) 1 gm ACHS PO 09/19/17 08:00 09/19/17 21:00 (Azulfidine) 500 mg BID PO 09/19/17 09:00 09/20/17 09:58 (Desyrel) 50 mg HS PO 09/19/17 21:00 09/19/17 22:53 (Oscal-D 250-125) 500 mg BID PO 09/18/17 22:00 09/20/17 09:58 (Theragran) 1 tab DAILY PO 09/19/17 09:00 09/20/17 09:58 (Zofran Inj) 4 mg Q4H PRN IV PUSH 09/19/17 10:00 09/20/17 04:16 (Tylenol-Codeine #3) 1 tab Q4H PRN PO 09/19/17 10:00 (Tylenol-Codeine #3) 2 tab Q4H PRN PO 09/19/17 10:00 09/19/17 16:42 (NS Flush) 2 ml BID IV FLUSH 09/19/17 21:00 09/20/17 09:59 (NS Flush) 2 ml UNSCH PRN IV FLUSH 09/19/17 10:00 (Glucagon Inj) 1 mg STAT PRN IM 09/19/17 09:45 (D50w (Vial) Inj) 50 ml UNSCH PRN IV PUSH 09/19/17 09:45 (Glucagon Inj) 1 mg UNSCH PRN OTHER 09/19/17 09:45 (NovoLIN R SUPPLEMENTAL SCALE) 1 ACHS SLIDING SCALE SQ 09/19/17 12:00 Vital Signs / I&O Vital Signs Date Time Temp Pulse Resp B/P (MAP) Pulse Ox O2 Delivery O2 Flow Rate FiO2 09/20/17 08:13 98 Nasal Cannula 3.00 09/20/17 06:00 78 09/20/17 05:00 78 09/20/17 04:42 157/72 (100) 09/20/17 04:06 173/72 (105) 09/20/17 04:00 76 09/20/17 03:30 93 18 184/80 (114) 93 09/20/17 03:00 94 09/20/17 02:00 90 09/20/17 01:00 94 09/20/17 00:00 88 09/19/17 23:21 98.7 91 16 140/63 (88) 95 09/19/17 23:00 91 09/19/17 22:00 116 09/19/17 21:00 100 09/19/17 20:20 98.6 85 18 152/68 (96) 92 09/19/17 20:00 80 09/19/17 19:00 79 09/19/17 18:00 80 09/19/17 17:42 19 09/19/17 17:00 104 09/19/17 16:00 84 09/19/17 15:00 84 09/19/17 15:00 97.5 84 19 147/84 (105) 94 09/19/17 14:00 82 09/19/17 13:00 86 09/19/17 12:30 98.2 85 17 156/71 (99) 93 I/O 09/19/17 09/19/17 09/19/17 09/20/17 09/20/17 09/20/17 07:00 15:00 23:00 07:00 15:00 23:00 Intake Total 1340 ml 223 ml 290 ml 530 ml Output Total 0 ml 500 ml Balance 1340 ml 223 ml 290 ml 30 ml Intake Oral 240 ml 240 ml 480 ml IV Total 1100 ml 223 ml 50 ml 50 ml Output Urine Total 0 ml 500 ml # Voids 0 2 # Bowel Movements 0 0 Physical Exam GENERAL: Well developed, well nourished. No acute distress. HEENT: Jugular venous pressure is normal. CHEST: Lungs clear to auscultation bilaterally. Unlabored respiratory effort. Pacer site clean, dry, intact, no hematoma or tenderness. CARDIAC: Regular rate and rhythm without S3, S4, or murmur. ABDOMEN: Soft, nontender, no hepatosplenomegaly. Bowel sounds present. EXTREMITIES: No clubbing, cyanosis, or edema. Laboratory Laboratory Tests Test 09/19/17 15:44 09/20/17 05:33 Random Glucose 144 MG/DL 116 MG/DL White Blood Count 8.4 TH/MM3 Red Blood Count 2.45 MIL/MM3 Hemoglobin 9.4 GM/DL Hematocrit 26.5 % Mean Corpuscular Volume 108.0 FL Mean Corpuscular Hemoglobin 38.4 PG Mean Corpuscular Hemoglobin Concent 35.5 % Red Cell Distribution Width 13.1 % Platelet Count 111 TH/MM3 Mean Platelet Volume 9.1 FL Neutrophils (%) (Auto) 76.2 % Lymphocytes (%) (Auto) 11.5 % Monocytes (%) (Auto) 11.8 % Eosinophils (%) (Auto) 0.2 % Basophils (%) (Auto) 0.3 % Neutrophils # (Auto) 6.4 TH/MM3 Lymphocytes # (Auto) 1.0 TH/MM3 Monocytes # (Auto) 1.0 TH/MM3 Eosinophils # (Auto) 0.0 TH/MM3 Basophils # (Auto) 0.0 TH/MM3 CBC Comment DIFF FINAL Differential Comment Blood Urea Nitrogen 19 MG/DL Creatinine 0.78 MG/DL Total Protein 5.7 GM/DL Albumin 3.2 GM/DL Calcium Level 8.3 MG/DL Phosphorus Level 2.1 MG/DL Magnesium Level 1.8 MG/DL Alkaline Phosphatase 68 U/L Aspartate Amino Transf (AST/SGOT) 617 U/L Alanine Aminotransferase (ALT/SGPT) 375 U/L Total Bilirubin 0.4 MG/DL Sodium Level 142 MEQ/L Potassium Level 3.2 MEQ/L Chloride Level 109 MEQ/L Carbon Dioxide Level 23.7 MEQ/L Anion Gap 9 MEQ/L Estimat Glomerular Filtration Rate 72 ML/MIN Free Thyroxine 1.25 NG/DL Thyroid Stimulating Hormone 3rd Gen 3.330 uIU/ML Assessment and Plan Problem List: (1) AV block ICD Codes: I44.30 - Unspecified atrioventricular block Status: Acute Plan: Stable s/p pacemaker implantation yesterday. Pacer site OK. Pacer function normal. OK to discharge today from cardiac standpoint. (2) S/P TAVR (transcatheter aortic valve replacement) ICD Codes: Z95.2 - Presence of prosthetic heart valve Status: Acute Plan: Stable s/p recent TAVR. Exam c/w normal AVR function. (3) Elevated troponin ICD Codes: R74.8 - Abnormal levels of other serum enzymes Status: Acute Plan: Elevated cardiac enzymes on admission, etiology not entirely clear. Pre- TAVR cath apparently showed unremarkable coronaries. Patient without any angina symptoms. Possibly from transient intermittent hypotension while in complete heart block. To treat medically. Repeat echo as outpatient. Code Status full code Discussed Condition With patient Silvino Petty MD Sep 20, 2017 10:23
--- NOTE | 2017-09-20 10:36 | EKG ---
Date Performed: 09/20/2017 Time Performed: 04:47:40 PTAGE: 76 years EKG: Atrial sensed, venticular paced rhythm. Abnormal ECG PREVIOUS TRACING : 09/19/2017 11.23 No significant change from previous tracing noted. DOCTOR: Silvino Petty Interpretating Date/Time 09/20/2017 10:34:53
[2017-09-20 10:53] LABS: HEMOGLOBIN A1a 1.7 %; HEMOGLOBIN A1b 0.7 %; HEMOGLOBIN Ao 84.5 %; HEMOGLOBIN F 1.3 %; HEMOGLOBIN LA1C 2.2 %; HEMOGLOBIN P3 5.4 %
--- NOTE | 2017-09-20 12:11 | EKG ---
Date Performed: 09/18/2017 Time Performed: 18:28:31 PTAGE: 76 years EKG: Sinus rhythm WITH HIGH GRADE AV BLOCK MARKED RIGHT AXIS DEVIATION RIGHT BUNDLE BRANCH BLOCK ST DEPRESSION, CONSID ER SUBENDOCARDIAL INJURY ABNORMAL ECG NO PREVIOUS TRACING DOCTOR: Mindy Romero Interpretating Date/Time 09/20/2017 12:09:33
[2017-09-20] MEDS ORDERED: ZOFR4TAB PO (14:43)
[2017-09-20] MEDS ORDERED: LOSARTAN 50 MG TAB PO ONE (14:45)
== END 2017-09-20 16:51 | disposition home or self-care (01) | DRG 243 ==
LOC: NEPC 18:09 → NEDA 18:31 → HCVI 21:50 → HCIS 09-19 09:14 → HCPC 09-19 12:26
PROVIDERS: ADMIT Family Medicine; ATTEND Family Medicine
PROC: 0JH606Z Insertion of Pacemaker, Dual Chamber into Chest Subcutaneous Tissue and Fascia, Open Approach (ICD-10-PCS; principal; 2017-09-19)
PROC: 02H63JZ Insertion of Pacemaker Lead into Right Atrium, Percutaneous Approach (ICD-10-PCS; 2017-09-19)
PROC: 02HK3JZ Insertion of Pacemaker Lead into Right Ventricle, Percutaneous Approach (ICD-10-PCS; 2017-09-19)
DX: I97.190 Other postprocedural cardiac functional disturbances following cardiac surgery (principal); I44.2 Atrioventricular block, complete; I95.89 Other hypotension; I11.0 Hypertensive heart disease with heart failure; D69.6 Thrombocytopenia, unspecified; I50.32 Chronic diastolic (congestive) heart failure; E11.51 Type 2 diabetes mellitus with diabetic peripheral angiopathy without gangrene; J44.9 Chronic obstructive pulmonary disease, unspecified; E78.5 Hyperlipidemia, unspecified; K21.9 Gastro-esophageal reflux disease without esophagitis; E03.9 Hypothyroidism, unspecified; D75.89 Other specified diseases of blood and blood-forming organs; I25.10 Atherosclerotic heart disease of native coronary artery without angina pectoris; R74.8 Abnormal levels of other serum enzymes; M06.9 Rheumatoid arthritis, unspecified; M19.90 Unspecified osteoarthritis, unspecified site; F41.9 Anxiety disorder, unspecified; Z87.891 Personal history of nicotine dependence; Z91.013 Allergy to seafood; Z95.2 Presence of prosthetic heart valve
CPT/HCPCS: 33208; 71010; 80048; 80053; 82550; 82552; 82947; 82948; 83036; 83735; 84100; 84439; 84443; 84484; 85025; 85027; 85610; 85730; 87641; 93005; 94150; 94640; 94667; 94668; 99285; C1785; C1898; J0461; J0690; J2250; J2270; J2405; J3370; J3480; J7030

== ENCOUNTER 2018-04-06 00:42 | Observation (INO) ==
[2018-04-06 03:06] VITALS: RESP 16
[2018-04-07 13:09] VITALS: BP 187/76; PULSE 71; TEMP 96.8; O2SAT 94
== END 2018-04-06 12:29 | disposition home or self-care (01) ==
LOC: NEPHCDU 00:42 → NEPE 00:42 → NEDA 00:42 → NEPHCDU 08:45
PROVIDERS: ADMIT Internal Medicine Interventional Cardiology; ATTEND Internal Medicine Interventional Cardiology

== ENCOUNTER 2018-08-07 16:35 | Inpatient (IN) ==
[2018-08-07 17:34] LABS: Baso % (Auto) 0.4 % (0.0-2.0); Eos # (Auto) 0.1 th/mm3 (0.0-0.4); Eos % (Auto) 0.9 % (0.0-4.0); Hematocrit 38.5 % (35.0-46.0); Hemoglobin 13.3 gm/dL (11.6-15.3); Lymph # (Auto) 2.1 th/mm3 (1.0-4.8); Lymph % (Auto) 27.3 % (9.0-44.0); Mean Corpuscular HGB Conc 34.7 % (32.0-36.0); Mean Corpuscular Hemoglobin 38.5 pg (27.0-34.0); Mean Corpuscular Volume 110.9 fL (80.0-100.0); Mean Platelet Volume 8.7 fL (7.0-11.0); Mono # (Auto) 0.8 th/mm3 (0.0-0.9); Mono % (Auto) 10.9 % (0.0-8.0); Neut # (Auto) 4.6 th/mm3 (1.8-7.7); Neut % (Auto) 60.5 % (16.0-70.0); Platelet Count 192 th/mm3 (150-450); Red Blood Count 3.47 mil/mm3 (4.00-5.30); Red Cell Distribution Width 13.7 % (11.6-17.2); White Blood Count 7.6 th/mm3 (4.0-11.0)
--- NOTE | 2018-08-07 17:36 | XR ---
EXAM DATE: 08/07/2018 5:28 PM EDT AGE/SEX: 77 years / Female INDICATIONS: Shortness of breath status post right lung biopsy. CLINICAL DATA: This is the patient's initial encounter. Patient reports that signs and symptoms have been present for 2 days and indicates a pain score of 0/10. MEDICAL/SURGICAL HISTORY: None. . Right lung biopsy. COMPARISON: [facility] – [place], CHEST 1V SINGLE AP, 08/06/2018. . FINDINGS: There is a large right-sided pneumothorax. There is a left shoulder Physical position. Left occluded bipolar pacer good position. Left subclavian bipolar pacer in good p osition. CONCLUSION: There is a large right-sided pneumothorax. Left lung is clear. Electronically signed by: Rolf Li MD 08/07/2018 5:35 PM EDT
[2018-08-07 17:46] LABS: Alanine Aminotransferase 27 U/L (10-53); Albumin 4.1 g/dL (3.4-5.0); Anion Gap 9 meq/L (5-15); Aspartate Aminotransferase 31 U/L (15-37); Blood Urea Nitrogen 25 mg/dL (7-18); Calcium 9.1 mg/dL (8.5-10.1); Carbon Dioxide 27.1 meq/L (21.0-32.0); Chloride 103 meq/L (98-107); Glomerular Filtration Rate 60 mL/min (>89); Glucose,Random 98 mg/dL (74-106); Sodium 139 meq/L (136-145)
[2018-08-07 17:50] LABS: Alkaline Phosphatase 76 U/L (45-117); Total Protein 7.3 g/dL (6.4-8.2)
[2018-08-07] MEDS ORDERED: Lidocaine 2%/Epinephrine 1:100,000 30 ML MDV INFILTRATN ONE (18:16)
[2018-08-07] MEDS ORDERED: Lidocaine 2%/Epinephrine 1;100,000 Inj 50 ML Vial ONE (18:19)
[2018-08-07] MEDS ORDERED: fentaNYL Citrate Inj 100 MCG/2 ML Ampul ONE (18:35)
[2018-08-07] MEDS ORDERED: fentaNYL Citrate Inj 100 MCG/2 ML Ampul IV.PUSH ONE ×2 (18:52→20:38)
--- NOTE | 2018-08-07 18:55 | ED ---
HPI General Chief Complaint: Shortness of Breath/Dyspnea Stated Complaint: procedure on Fri-lung biopsy-trouble breathing Time Seen by Provider: 08/07/18 17:04 History of Present Illness Patient is a 77-year-old female, past medical history significant for hypertension, hyperlipidemia and new lung mass who presents with complaint of shortness of breath. She had a lung biopsy done 2 days ago after which she felt fine. She states that today she started to have some shortness of breath and was told by her physician to come here. No chest pain. No lightheadedness no abdominal pain. Related Data Home Medications Medication Instructions Recorded Confirmed clopidogrel [Plavix] 75 mg PO DAILY 04/06/18 08/07/18 adalimumab [Humira] 40 mg SUBCUT QWEEK 08/04/18 08/07/18 amlodipine 5 mg PO DAILY 08/04/18 08/07/18 aspirin 81 mg PO DAILY 08/04/18 08/07/18 atorvastatin 80 mg PO DAILY 08/04/18 08/07/18 hydrochlorothiazide 25 mg PO DAILY 08/04/18 08/07/18 hydrocodone-acetaminophen 1 tab PO Q8H 08/04/18 08/07/18 levothyroxine 75 mcg PO DAILY 08/04/18 08/07/18 losartan 100 mg PO BID 08/04/18 08/07/18 metoprolol tartrate 25 mg PO BID 08/04/18 08/07/18 pantoprazole 40 mg PO BID 08/04/18 08/07/18 sulfasalazine 500 mg PO BID 08/04/18 08/07/18 trazodone 100 mg PO HS 08/04/18 08/07/18 Allergies Allergy/AdvReac Type Severity Reaction Status Date / Time lisinopril Allergy Severe ANGIOEDEMA Verified 08/05/18 07:19 shellfish derived Allergy Severe Edema Verified 04/06/18 00:58 Review of Systems ROS: all other systems reviewed are negative [facility] Medical History Medical History Chronic back pain (Acute) H/O: hysterectomy (Acute) Hyperlipidemia (Acute) Hypertension (Acute) Hypothyroidism (Acute) Pacemaker (Acute) Peripheral vascular disease (Acute) Rheumatoid arthritis (Acute) Surgical History Surgical History Aortic valve replaced (Acute) H/O heart surgery (Acute) H/O shoulder replacement (Acute) S/P femoral-popliteal bypass surgery (Acute) Social History Social History Substance History: No History of Abuse Second Hand Smoke Exposure: No Smoking Status: Former smoker Tobacco Type: Cigarettes How Often Do You Have a Drink Containing Alcohol: 2 to 3 times a week Recent Travel in [facility] within the Last 8 Weeks: No Recent Out of Country Travel within the Last 8 Weeks: No Immunization History Tetanus Immunization: Unsure Exam Narrative Exam Narrative: GENERAL: Well-appearing female, tachypneic SKIN: Focused skin assessment warm/dry. No rashes. HEAD: Atraumatic. Normocephalic. EYES: Pupils equal and round. No scleral icterus. No injection or drainage. ENT: No nasal bleeding or discharge. Mucous membranes pink and moist. NECK: Trachea midline. No JVD. CARDIOVASCULAR: Regular rate and rhythm. No murmur appreciated. Intact and equal peripheral pulses. RESPIRATORY: Decreased breath sounds in the right upper lobe. GASTROINTESTINAL: Abdomen soft, non-tender, nondistended. Hepatic and splenic margins not palpable. MUSCULOSKELETAL: No obvious deformities. No clubbing. No cyanosis. No edema. NEUROLOGICAL: Awake and alert. No obvious cranial nerve deficits. Motor grossly within normal limits. Normal speech. PSYCHIATRIC: Appropriate mood and affect; insight and judgment normal. Procedures Chest Tube Chest Tube 1: Chest Tube Location: Pleural Size of Tube (cm): 10 Chest Tube Procedure: Yes sterile drapes applied Tube Sutured to Skin: Yes Sterile Dressing Applied: Yes Anesthesia: 1% Lidocaine w/ Epi Volume anesthetic (mL): 10 Incision made with: other Ring of Air Long: Yes Tube Drainage: none Post Procedure CXR?: Yes Patient Tolerated Procedure: Yes Complications: tube needs to be repositioned Course Initial Documented Vital Signs Pulse Rate 96 H 08/07/18 16:58 Respiratory Rate 25 H 08/07/18 16:58 Pulse Oximetry 97 08/07/18 16:58 Last Documented Vital Signs Temperature 97.6 F 08/07/18 20:58 Pulse Rate 92 H 08/07/18 23:00 Respiratory Rate 15 08/07/18 23:00 Blood Pressure 175/75 H 08/07/18 22:31 Pulse Oximetry 100 08/07/18 23:00 Medical Decision Making MDM Narrative Medical decision making narrative: Patient is a 77-year-old female who presents with complaint of shortness of breath 2 days after she had a lung biopsy. She was placed on a nonrebreather on arrival and. X-ray showed collapse of the right upper lobe and pigtail catheter was placed by Dr. Bronson. Repeat x-ray was done while it was being sutured and placed prior to being hooked up to suction and showed complete collapse of the right side. This was hooked back up to suction which then came apart and was hooked back up again and repeat x-ray was done approximately 20 minutes after which showed reexpansion of the right middle and lower lobe. There was persistent collapse of the right upper lobe. RN began to gather supplies for a larger chest tube while I spoke with Dr. Almanza whom stated "get her up here and I will put in a bigger tube." A bed was immediately assigned and the ICU staff called and asked for the patient to be brought up immediately to Dr Almanza. Medical Screen Exam Complete: Yes Emergency Medical Condition: Yes Differential Diagnosis Differential Diagnosis: Differential diagnosis includes but is not limited to pneumothorax, COPD exacerbation, pulmonary embolism. Medical Records Medical records reviewed: Yes I reviewed the patient's medical records. Lab Data Lab results reviewed: Yes I reviewed the patient's lab results. Result diagrams: 08/07/18 17:10 08/07/18 17:10 Lab Results 08/07/18 08/07/18 Range/Units 17:10 17:10 WBC 7.6 (4.0-11.0) th/mm3 RBC 3.47 L (4.00-5.30) mil/mm3 Hgb 13.3 (11.6-15.3) gm/dL Hct 38.5 (35.0-46.0) % MCV 110.9 H (80.0-100.0) fL MCH 38.5 H (27.0-34.0) pg MCHC 34.7 (32.0-36.0) % RDW 13.7 (11.6-17.2) % Plt Count 192 (150-450) th/mm3 MPV 8.7 (7.0-11.0) fL Neut % (Auto) 60.5 (16.0-70.0) % Lymph % (Auto) 27.3 (9.0-44.0) % Woods % (Auto) 10.9 H (0.0-8.0) % Eos % (Auto) 0.9 (0.0-4.0) % Baso % (Auto) 0.4 (0.0-2.0) % Neut # (Auto) 4.6 (1.8-7.7) th/mm3 Lymph # (Auto) 2.1 (1.0-4.8) th/mm3 Woods # (Auto) 0.8 (0.0-0.9) th/mm3 Eos # (Auto) 0.1 (0.0-0.4) th/mm3 Baso # (Auto) 0.0 (0.0-0.2) th/mm3 WBC Differential . Differential Comment Auto diff final Sodium 139 (136-145) meq/L Potassium 4.0 (3.5-5.1) meq/L Chloride 103 (98-107) meq/L Carbon Dioxide 27.1 (21.0-32.0) meq/L Anion Gap 9 (5-15) meq/L BUN 25 H (7-18) mg/dL Creatinine 0.91 (0.50-1.00) mg/dL Estimated GFR 60 L (>89) mL/min Random Glucose 98 (74-106) mg/dL Calcium 9.1 (8.5-10.1) mg/dL Total Bilirubin 0.5 (0.2-1.0) mg/dL AST 31 (15-37) U/L ALT 27 (10-53) U/L Alkaline Phosphatase 76 (45-117) U/L Troponin I Less than 0.02 L (0.02-0.05) ng/mL Total Protein 7.3 (6.4-8.2) g/dL Albumin 4.1 (3.4-5.0) g/dL Imaging Data Attestation: I personally reviewed and interpreted this imaging study as follows : Radiologist's impression: Chest X-Ray 08/07/18 17:04 CONCLUSION: There is a large right-sided pneumothorax. Left lung is clear. Chest X-Ray 08/07/18 18:46 CONCLUSION: Persistent large right pneumothorax after small caliber chest tube placement. Chest tube is kinked. This should be repositioned or reinserted. Chest X-Ray 08/07/18 19:10 CONCLUSION: Large right pneumothorax with small caliber right chest tube present. Patient may require a larger surgically placed chest tube. Findings called to Dr. Kumar at the time of dictation. Chest X-Ray 08/07/18 21:18 CONCLUSION: Placement of larger caliber right chest tube with near complete resolution of previous right pneumothorax. Discharge Plan Discharge Disposition Patient Disposition: 30 Still Patient Discharge Condition Condition: Serious Discharge Details Diagnosis: Pneumothorax after biopsy Physicians Team ED Provider: Carol Kumar Primary Care Provider: UNKNOWN, Attending Provider: Dustin Almanza Other Providers: Riky Scanlon Status ED Status: Left Department Discharge Information Discharge Date/Time: 08/07/18 20:51
--- NOTE | 2018-08-07 19:18 | XR ---
EXAM DATE: 08/07/2018 7:02 PM EDT AGE/SEX: 77 years / Female INDICATIONS: Status post right sided chest tube placement. CLINICAL DATA: This is the patient's subsequent encounter. Patient reports that signs and symptoms h ave been present for 1 day and indicates a pain score of 2/10. MEDICAL/SURGICAL HISTORY: None. . Right lung biopsy. COMPARISON: [facility] – [place], CHEST 1V SINGLE AP, 08/07/2018. . FINDINGS: There is placement of a small-caliber right chest tube. Large pneumothorax persists. The chest tube i s noted to be kinked distally. Pacer leads unchanged. Basilar atelectasis. CONCLUSION: Persistent large right pneumothorax after small caliber chest tube placement. Chest tube is kinked. This should be repositioned or reinserted. Electronically signed by: Donald Ferrer MD 08/07/2018 7:17 PM EDT
[2018-08-07] MEDS ORDERED: Morphine Sulfate Inj 2 MG/ML Vial IV.PUSH PRN (19:41)
[2018-08-07] MEDS ORDERED: Acetaminophen 325 MG Tablet PO PRN (19:41)
[2018-08-07] MEDS ORDERED: Bisacodyl 10 MG Supp RECTAL PRN (19:41)
--- NOTE | 2018-08-07 19:44 | P.HPCC ---
History of Present Illness Service: Critical care medicine Primary Care Physician: UNKNOWN Chief Complaint: Shortness of breath History of Present Illness: This is a 77-year-old female. Admission 08/07/2018 past medical includes breast cancer, hypertension, hypothyroidism. Patient presented to [facility] acute onset of shortness of breath. On 08/04, patient had a lung biopsy by Dr. Khalil.. She states that today she started to have some shortness of breath and was told by her physician to come here. No chest pain. No lightheadedness no abdominal pain. Chest x-ray revealed right pneumothorax. A 10 Botswanan pigtail catheter was placed without resolution of pneumothorax. I placed a 20 B[place]wanan chest tube with essential resolution.. Patient received 10 mg midazolam and 150 mg of fentanyl for the procedure. She is currently on her percent nonrebreather. Hypertensive. Inpatient Certification: I certify that the inpatient services were ordered in accordance with Medicare regulations governing the order. This includes certification that hospital inpatient services are reasonable and necessary and in the case of services not specified as inpatient-only under 42 CFR 419.22(n), that they are appropriately provided as inpatient services in accordance to with the 2-midnight benchmark under 43 CFR 412.3(e) Estimated Total Length of Stay (Days): 5 Plans for Post Hospital Care: Home Review of Systems unobtainable due to mental status PMFSH - History History Provided By: Patient - Medical History Medical History: Medical History (Last Reviewed 08/07/18 @ 20:48 by Carol Kumar MD) Chronic back pain H/O: hysterectomy Hyperlipidemia Hypertension Hypothyroidism Pacemaker Peripheral vascular disease Rheumatoid arthritis - Surgical History Surgical History: Surgical History (Last Reviewed 08/07/18 @ 20:48 by Carol Kumar MD) Aortic valve replaced H/O heart surgery H/O shoulder replacement S/P femoral-popliteal bypass surgery - Tobacco History Second Hand Smoke Exposure: No Tobacco Use In Past 30 Days: No Smoking Status: Former smoker Tobacco Type: Cigarettes - Alcohol History How Often Do You Have a Drink Containing Alcohol: 2 to 3 times a week - Substance Use History Substance History: No History of Abuse - Travel History Recent Travel in the [place] Within the Last 8 Weeks: No Recent Travel Out of the Country Within the Last 8 Weeks: No - Immunization History Tetanus Immunization: Unsure Medications and Allergies Allergies Allergy/AdvReac Type Severity Reaction Status Date / Time lisinopril Allergy Severe ANGIOEDEMA Verified 08/05/18 07:19 shellfish derived Allergy Severe Edema Verified 04/06/18 00:58 Home Medications Medication Instructions Recorded Confirmed Type clopidogrel [Plavix] 75 mg PO DAILY 04/06/18 08/07/18 History adalimumab [Humira] 40 mg SUBCUT QWEEK 08/04/18 08/07/18 History amlodipine 5 mg PO DAILY 08/04/18 08/07/18 History aspirin 81 mg PO DAILY 08/04/18 08/07/18 History atorvastatin 80 mg PO DAILY 08/04/18 08/07/18 History hydrochlorothiazide 25 mg PO DAILY 08/04/18 08/07/18 History hydrocodone-acetaminophen 1 tab PO Q8H 08/04/18 08/07/18 History levothyroxine 75 mcg PO DAILY 08/04/18 08/07/18 History losartan 100 mg PO BID 08/04/18 08/07/18 History metoprolol tartrate 25 mg PO BID 08/04/18 08/07/18 History pantoprazole 40 mg PO BID 08/04/18 08/07/18 History sulfasalazine 500 mg PO BID 08/04/18 08/07/18 History trazodone 100 mg PO HS 08/04/18 08/07/18 History Results - Labs CBC & Chem 7: 08/07/18 17:10 08/07/18 17:10 Labs: Short CBC 08/07/18 Range/Units 17:10 WBC 7.6 (4.0-11.0) th/mm3 Hgb 13.3 (11.6-15.3) gm/dL Hct 38.5 (35.0-46.0) % Plt Count 192 (150-450) th/mm3 [facility] 08/07/18 17:10 Sodium 139 Potassium 4.0 Chloride 103 Carbon Dioxide 27.1 BUN 25 H Creatinine 0.91 Calcium 9.1 Cardiac Enzymes 08/07/18 Range/Units 17:10 Troponin I Less than 0.02 L (0.02-0.05) ng/mL Liver Function 08/07/18 Range/Units 17:10 Total Bilirubin 0.5 (0.2-1.0) mg/dL AST 31 (15-37) U/L ALT 27 (10-53) U/L Alkaline Phosphatase 76 (45-117) U/L Albumin 4.1 (3.4-5.0) g/dL - Imaging Impressions Chest X-Ray 08/07/18 17:04 CONCLUSION: There is a large right-sided pneumothorax. Left lung is clear. Chest X-Ray 08/07/18 18:46 CONCLUSION: Persistent large right pneumothorax after small caliber chest tube placement. Chest tube is kinked. This should be repositioned or reinserted. Exam Vital signs: Vital Signs 08/07/18 16:58 08/07/18 17:01 Pulse Rate 96 H 93 H Respiratory Rate 25 H 25 H Blood Pressure 211/86 H Pulse Oximetry 97 97 Intake & Output 08/07/18 08/07/18 08/08/18 06:59 18:59 06:59 Weight 68.039 kg - Constitutional no acute distress - Routine HEENT Exam Head: Present: normocephalic, atraumatic Eye: Present: EOMI, PERRL, normal accommodation ENT: Present: mucous membranes moist - Routine Neck Exam Present: supple, full ROM. Absent: JVD - Routine Chest/Breast/Axilla Exam Chest wall: Present: chest tube. Absent: tenderness Breast: Absent: tenderness Axillae: Absent: lymphadenopathy - Routine Respiratory Exam Present: decreased breath sounds. Absent: accessory muscle use, rhonchi - Routine Cardiovascular Exam Present: RRR, S1, S2. Absent: murmur - Routine Abdominal Exam Present: soft, normoactive bowel sounds - Routine Extremities Exam Absent: cyanosis, clubbing, edema - Routine Skin Exam Present: intact - Routine Neurological Exam Present: alert, oriented X3, CN II-XII intact Septic Shock Reassessment Septic shock perfusion: reassessment completed Caprini VTE Risk Assessment Caprini VTE Risk Assessment: Moderate/High Risk (score >= 2) Caprini Risk Assessment Model: Point Value = 1 Point Value = 2 Point Value = 3 Point Value = 5 Age 41-60 Minor surgery BMI > 25 kg/m2 Swollen legs Varicose veins or History of unexplained or recurrent spontaneous Oral contraceptives or hormone replacement Sepsis (< 1 month) Serious lung disease, including pneumonia (< 1 month) Abnormal pulmonary function Acute myocardial infarction Congestive heart failure (< 1 month) History of inflammatory bowel disease Medical patient at bed rest Age 61-74 Arthroscopic surgery Major open surgery (> 45 min) Laparoscopic surgery (> 45 min) Malignancy Confined to bed (> 72 hours) Immobilizing plaster cast Central venous access Age >= 75 History of VTE Family history of VTE Factor V Leiden Prothrombin [id number] Lupus anticoagulant Anticardiolipin antibodies Elevated serum homocysteine Heparin-induced thrombocytopenia Other congenital or acquired thrombophilia Stroke (< 1 month) Elective arthroplasty Hip, pelvis, or leg fracture Acute spinal cord injury (< 1 month) Prophylaxis Regimen: Total Risk Factor Score Risk Level Prophylaxis Regimen 0-1 Low Early ambulation 2 Moderate Order ONE of the following: *Sequential Compression Device (SCD) *Heparin 5000 units SQ BID 3-4 Higher Order ONE of the following medications: *Heparin 5000 units SQ TID *Enoxaparin/Lovenox 40 mg SQ daily (WT < 150 kg, CrCl > 30 mL/min) *Enoxaparin/Lovenox 30 mg SQ daily (WT < 150 kg, CrCl > 10-29 mL/min) *Enoxaparin/Lovenox 30 mg SQ BID (WT < 150 kg, CrCl > 30 mL/min) AND/OR *Sequential Compression Device (SCD) 5 or more Highest Order ONE of the following medications: *Heparin 5000 units SQ TID (Preferred with Epidurals) *Enoxaparin/Lovenox 40 mg SQ daily (WT < 150 kg, CrCl > 30 mL/min) *Enoxaparin/Lovenox 30 mg SQ daily (WT < 150 kg, CrCl > 10-29 mL/min) *Enoxaparin/Lovenox 30 mg SQ BID (WT < 150 kg, CrCl > 30 mL/min) AND *Sequential Compression Device (SCD) Assessment and Plan - Assessment and Plan Plan: Neuro/Psych: Chronic low back pain History of depression Chronic opioid use Acetaminophen 650 p.o. every 6 hours as needed fever Hydrocodone/acetaminophen 02/3251 tablet every 4 hours. 1-5 as needed. Is on 7.5/325 tablets at home Morphine sulfate 2 mg every 2 hours as needed pain 6 - 10 Continue trazodone 100 mg at night CV: Essential hypertension History of pacemaker Anemia continue aspirin 81 mg SS clopidogrel 75 mg daily Continue amlodipine 5 mg daily and metoprolol tartrate 25 mg twice daily for hypertension Holding losartan 100 mg daily and hydrochlorthiazide 25 mg daily Continue metoprolol tartrate 25 mg p.o. twice daily Continue atorvastatin 80 mg daily Resp: Right pneumothorax Status post #10 B[place]wanan pigtail catheter in ED. I placed a #28 B[place]wanan chest tube. E resolution of pneumothorax. Plan to check CT thorax in a.m. 08/08 Currently on a 100% nonrebreather Chest tube to -20 cm H2O. Pigtail catheter -40 wall suction GI: N.p.o. status pantoprazole for GI prophylaxis Docusate sodium/senna 1 tablet twice daily for bowel rest : Straight catheterization as needed Endo: Hypothyroidism Continue levothyroxine 75 mcg daily. Recheck TSH in a.m. Renal: Creatinine currently within normal Monitor urine output Accurate I's and O's Heme: Macrocytosis Monitor CBC daily. Follow trends. No indication for transfusion of blood products at this time. ID: Monitor for signs and symptomatology of infection Will receive 1 1 g of vancomycin x1 now. FEN: Replace electrolytes as clinically indicated MSK: History of rheumatoid arthritis Continue sulfasalazine 500 mg as scheduled. He is on Humira at home weekly 40 mg Access -Utilize peripheral IV. Central line if indicated Prophylaxis- -GI -pantoprazole -DVT SCD/heparin subcu Level 2 admission. Code Status: Full code Discussed Condition With: ED physician. Patient. Care plan discussed and all questions answered.
--- NOTE | 2018-08-07 20:22 | XR ---
EXAM DATE: 08/07/2018 8:12 PM EDT AGE/SEX: 77 years / Female INDICATIONS: S/P chest tube placement. CLINICAL DATA: This is the patient's subsequent encounter. Patient reports that signs and symptoms h ave been present for 1 day and indicates a pain score of 3/10. MEDICAL/SURGICAL HISTORY: None. . Right lung biopsy. [place]PAR[place] [facility] [place] 1[place] SING[place] AP, [place]/07/2018. . FINDINGS: Small-caliber chest tube remains with a large right pneumothorax. There is now atelectasis in the rig ht upper lobe which is increasing. Left lung unchanged. CONCLUSION: Large right pneumothorax with small caliber right chest tube present. Patient may require a larger bashir rgically placed chest tube. Findings called to Dr. Kumar at the time of dictation. Electronically signed by: Donald Ferrer MD 08/07/2018 8:20 PM EDT
[2018-08-07] MEDS ORDERED: Midazolam Inj 5 MG/ML 1 ML Vial ONE ×2 (20:34→21:02)
[2018-08-07] MEDS ORDERED: Lidocaine 1%/Epinephrine 1:100,000 Inj 30 ML Vial ONE (20:34)
[2018-08-07] MEDS: Sod Chloride 0.9% Inj 1,000 ML IV.CONT SCH (20:43)
[2018-08-07] MEDS: Heparin - SQ 10,000 UNITS/ML Vial SQ SCH (20:43)
--- NOTE | 2018-08-07 21:18 | P.PCN ---
Date of procedure: 08/07/18 Pre-op diagnosis: Right pneumothorax Post-op diagnosis: same Procedure: Date of procedure: 08/07/2018 Procedure: Right chest tube placement Indication: Pneumothorax Details of procedure: Informed consent was obtained from the patient. The patient was laid supine. The lateral chest wall was cleaned with ChloraPrep twice. Regional sterile drapes were applied. 1% lidocaine was used for local anesthesia and injected into the subcutaneous and deep muscle tissues. A 2 cm skin incision was made with a scalpel blade. A hemostat was used for blunt dissection. The hemostat was entered into the pleural space superior to the rib with release of air. I explored the wound with my finger. A size 28 Hebrew chest tube was inserted with a Jaquelin clamp into the pleural cavity and directed toward the apex to a depth of 11. 0-0 silk was used to close the wound and to secure the chest tube. A sterile Vaseline gauze dressing was applied. The chest tube was connected to a Pleur-evac drainage system. There was a persistent 1 chamber air leak. There was [] output from the chest tube. Estimated blood loss: Minimal Complications: None. Stat chest x-ray will be CT thorax stat.
--- NOTE | 2018-08-07 21:44 | XR ---
EXAM DATE: 08/07/2018 9:35 PM EDT AGE/SEX: 77 years / Female INDICATIONS: Large bore chest tube placement, right. CLINICAL DATA: This is the patient's initial encounter. Patient reports that signs and symptoms have been present for 1 day and indicates a pain score of 0/10. MEDICAL/SURGICAL HISTORY: None. . Right lung biopsy. [place] [facility] [place]. . FINDINGS: There is placement of a large caliber right chest tube with near complete resolution of the previous right pneumothorax. Small caliber right chest tube remains. There is basilar atelectasis. There is a proximal aortic stent. Pacer leads unchanged. CONCLUSION: Placement of larger caliber right chest tube with near complete resolution of previous right pneumoth orax. Electronically signed by: Donald Ferrer MD 08/07/2018 9:42 PM EDT
[2018-08-07] MEDS: traZODone 50 MG Tablet PO SCH (22:25)
[2018-08-07] MEDS: Metoprolol Tartrate 25 MG Tablet PO SCH (22:25)
[2018-08-07] MEDS: Senna/Docusate Sodium 8.6/50 MG Tablet PO SCH (22:25)
[2018-08-07] MEDS: sulfaSALAzine 500 MG Tablet PO SCH (22:53)
[2018-08-08] MEDS ORDERED: Chlorhexidine Gluconate 2% 1 Pack (2 Cloths) TOPICAL PRN (04:00)
[2018-08-08] MEDS: Chlorhexidine Gluconate 2% 1 Pack (2 Cloths) TOPICAL SCH (04:30)
--- NOTE | 2018-08-08 04:41 | CT ---
EXAM DATE: 08/08/2018 4:20 AM EDT AGE/SEX: 77 years / Female INDICATIONS: Pneumothorax. CLINICAL DATA: This is the patient's initial encounter. Patient reports that signs and symptoms have been present for 1 day and indicates a pain score of 2/10. MEDICAL/SURGICAL HISTORY: Hypertension. Peripheral artery disease. . Hysterectomy. Aortic valve r eplacement. RADIATION DOSE: 9.08 CTDI (mGy) COMPARISON: [facility] [place], CHEST 1V SINGLE AP, 08/07/2018. . TECHNIQUE: Multiple contiguous axial images were obtained through the chest without contrast. Image s were obtained in suspended respiration using multiple row detector helical technique. Using automa zara exposure control and adjustment of the mA and/or kV according to patient size, radiation dose was kept as low as reasonably achievable to obtain optimal diagnostic quality images. DICOM format imag e data is available electronically for review and comparison. FINDINGS: A large bore right thoracostomy tube extends into the right upper lobe lung parenchyma. There is mild contusion surrounding the tube. A small-caliber pigtail catheter is present external to the chest ca vity with loop deep to the scapula. There is a small residual anterior lung base and medial pneumothorax. Right lower lobe mass again not ed with mild surrounding hemorrhage. Contralateral left lung notable for mild perifissural and depend ent posterior atelectasis. Prosthetic aortic valve noted. Pacemaker present. No evidence of mediastinal mass or adenopathy. CONCLUSION: 1. Large bore right thoracostomy tube extends into the upper lobe parenchyma 2. Pigtail tube is external to the chest along the posterior ribs deep to the scapula 3. Small residual anterior and medial right base pneumothorax. Electronically signed by: J Luis Cox MD 08/08/2018 4:40 AM EDT
[2018-08-08 05:10] LABS: Baso % (Auto) 0.4 % (0.0-2.0); Eos % (Auto) 0.4 % (0.0-4.0); Hematocrit 34.8 % (35.0-46.0); Hemoglobin 11.9 gm/dL (11.6-15.3); Lymph % (Auto) 12.5 % (9.0-44.0); Mean Corpuscular HGB Conc 34.2 % (32.0-36.0); Mean Corpuscular Hemoglobin 38.3 pg (27.0-34.0); Mean Platelet Volume 8.4 fL (7.0-11.0); Mono # (Auto) 0.8 th/mm3 (0.0-0.9); Neut # (Auto) 5.8 th/mm3 (1.8-7.7); Neut % (Auto) 75.7 % (16.0-70.0); Platelet Count 145 th/mm3 (150-450); Red Blood Count 3.11 mil/mm3 (4.00-5.30); Red Cell Distribution Width 13.7 % (11.6-17.2); White Blood Count 7.7 th/mm3 (4.0-11.0)
[2018-08-08 05:17] LABS: Activated Partial Thrombo Time 23.3 sec (23.4-31.7); Prothrombin Time 10.4 sec (9.8-11.6)
[2018-08-08 05:36] LABS: Albumin 3.6 g/dL (3.4-5.0); Anion Gap 8 meq/L (5-15); Aspartate Aminotransferase 26 U/L (15-37); Blood Urea Nitrogen 22 mg/dL (7-18); Calcium 8.8 mg/dL (8.5-10.1); Carbon Dioxide 28.8 meq/L (21.0-32.0); Chloride 104 meq/L (98-107); Glomerular Filtration Rate 73 mL/min (>89); Glucose,Random 119 mg/dL (74-106); Magnesium 1.8 mg/dL (1.5-2.5); Potassium 3.8 meq/L (3.5-5.1); Sodium 141 meq/L (136-145)
[2018-08-08 05:38] LABS: Alanine Aminotransferase 24 U/L (10-53); Phosphorus 3.6 mg/dL (2.5-4.9)
[2018-08-08 05:39] LABS: Alkaline Phosphatase 69 U/L (45-117); Total Protein 6.3 g/dL (6.4-8.2)
[2018-08-08] MEDS: Levothyroxine 75 MCG Tablet PO SCH (06:23)
[2018-08-08] MEDS ORDERED: Midazolam Inj 5 MG/ML 1 ML Vial IV.PUSH ONE (07:57)
[2018-08-08] MEDS ORDERED: Morphine Inj 4 MG, Morphine Inj 2 MG IV.PUSH ONE ×2 (07:58)
[2018-08-08] MEDS ORDERED: Morphine Sulfate Inj 8 MG/ML Vial ONE (08:03)
[2018-08-08] MEDS ORDERED: Midazolam Inj 5 MG/ML 1 ML Vial ONE (08:03)
--- NOTE | 2018-08-08 08:48 | P.PNCC ---
Subjective Subjective Remarks/Hospital Course: This is a 77-year-old female. Admission 08/07/2018 past medical includes breast cancer, hypertension, hypothyroidism. Patient presented to [facility] acute onset of shortness of breath. On 08/04, patient had a lung biopsy by Dr. Khalil.. She states that today she started to have some shortness of breath and was told by her physician to come here. No chest pain. No lightheadedness no abdominal pain. Chest x-ray revealed right pneumothorax. A 10 Surinamese pigtail catheter was placed without resolution of pneumothorax. I placed a 20 Surinamese chest tube with essential resolution.. Patient received 10 mg midazolam and 150 mg of fentanyl for the procedure. She is currently on her percent nonrebreather. Hypertensive. 08/08 0800 hrs: The second placed right thoracostomy tube has reexpanded the pneumothorax well. The patient however is on chronic Plavix therapy and there is a slow trickle of blood continuously draining from the insertion site. Blood is also draining from the insertion site of the chest tube placed in the emergency department. This is a pretty typical Plavix is but has not stopped with gentle pressure all morning. I removed both chest tubes so that I can inspect the depths of the wounds. No specific arterial bleeding was found but there was a generalized oozing from the skin edges undoubtedly related to the Plavix. I irrigated out clotted blood from the depths of the insertion site, placed a new thoracostomy tube through the previous large tube site and closed the skin in such a way that the oozing stopped. Objective Vital Signs / I&O: Vital Signs 08/07/18 16:58 08/07/18 17:01 08/07/18 19:00 Temperature Pulse Rate 96 H 93 H 105 H Respiratory Rate 25 H 25 H 18 Blood Pressure 211/86 H 179/74 H Pulse Oximetry 97 97 99 08/07/18 20:00 08/07/18 20:30 08/07/18 20:52 Temperature Pulse Rate 104 H 102 H 100 H Respiratory Rate 18 18 26 H Blood Pressure 183/78 H 181/75 H Pulse Oximetry 100 99 08/07/18 20:55 08/07/18 20:58 08/07/18 21:00 Temperature 97.6 F Pulse Rate 107 H 104 H 103 H Respiratory Rate 25 H 22 22 Blood Pressure 195/86 H Pulse Oximetry 98 100 100 08/07/18 21:01 08/07/18 21:04 08/07/18 21:07 Temperature Pulse Rate 103 H 101 H 103 H Respiratory Rate 23 25 H 26 H Blood Pressure 141/64 H 173/72 H 123/76 Pulse Oximetry 100 100 100 08/07/18 21:10 08/07/18 21:13 08/07/18 21:16 Temperature Pulse Rate 96 H 94 H 93 H Respiratory Rate 20 20 20 Blood Pressure 135/61 137/63 126/60 Pulse Oximetry 100 100 100 08/07/18 21:19 08/07/18 21:22 08/07/18 21:27 Temperature Pulse Rate 95 H 97 H Respiratory Rate 31 H 33 H Blood Pressure 134/63 140/57 L Pulse Oximetry 100 100 100 08/07/18 21:30 08/07/18 21:45 08/07/18 22:00 Temperature Pulse Rate 100 H 100 H 92 H Respiratory Rate 33 H 36 H 22 Blood Pressure 151/64 H 173/70 H 180/102 H Pulse Oximetry 100 100 100 08/07/18 22:03 08/07/18 22:30 08/07/18 22:31 Temperature Pulse Rate 94 H 96 H 98 H Respiratory Rate 23 43 H 43 H Blood Pressure 151/68 H 175/75 H Pulse Oximetry 100 98 99 08/07/18 23:00 08/07/18 23:38 08/08/18 00:00 Temperature 97.9 F Pulse Rate 92 H 75 71 Respiratory Rate 15 24 16 Blood Pressure 135/61 116/56 L Pulse Oximetry 100 100 100 08/08/18 01:00 08/08/18 01:27 08/08/18 02:00 Temperature Pulse Rate 69 73 76 Respiratory Rate 16 16 18 Blood Pressure 120/58 L Pulse Oximetry 100 100 08/08/18 02:10 08/08/18 03:00 08/08/18 04:00 Temperature 98.6 F Pulse Rate 76 74 82 Respiratory Rate 20 15 16 Blood Pressure 180/74 H 125/59 L Pulse Oximetry 98 100 100 08/08/18 05:00 08/08/18 05:08 08/08/18 06:00 Temperature Pulse Rate 79 78 81 Respiratory Rate 16 14 18 Blood Pressure 140/62 Pulse Oximetry 100 100 100 Intake & Output 08/07/18 08/08/18 08/08/18 18:59 06:59 18:59 Output Total 41 / 41 Balance -41 / -41 Weight 68.039 kg 68.8 kg Output: Chest Tube Drainage 41 / 41 #1 Right Upper Anterior 0 / 0 #2 Right Upper Anterior 41 / 41 Other: # Voids 1 Weight On Admission 68.1 kg Result Diagrams: 08/08/18 04:38 08/08/18 04:38 Objective Remarks: - Imaging Impressions Chest X-Ray 08/07/18 17:04 CONCLUSION: There is a large right-sided pneumothorax. Left lung is clear. Chest X-Ray 08/07/18 18:46 CONCLUSION: Persistent large right pneumothorax after small caliber chest tube placement. Chest tube is kinked. This should be repositioned or reinserted. Exam Vital signs: Vital Signs 08/07/18 16:58 08/07/18 17:01 Pulse Rate 96 H 93 H Respiratory Rate 25 H 25 H Blood Pressure 211/86 H Pulse Oximetry 97 97 Intake & Output 08/07/18 08/07/18 08/08/18 06:59 18:59 06:59 Weight 68.039 kg - Constitutional no acute distress - Routine HEENT Exam Head: Present: normocephalic, atraumatic Eye: Present: EOMI, PERRL, normal accommodation ENT: Present: mucous membranes moist - Routine Neck Exam Present: supple, full ROM. Airway widely patent, no obstructive noises absent: JVD - Routine Chest/Breast/Axilla Exam Chest wall: Present: chest tube. Absent: tenderness Breast: Absent: tenderness Axillae: Absent: lymphadenopathy - Routine Respiratory Exam Present: Scattered rhonchi right side, good bilateral air movement. Absent: accessory muscle use, rhonchi - Routine Cardiovascular Exam Present: RRR, S1, S2. Absent: murmur - Routine Abdominal Exam Present: soft, normoactive bowel sounds, no guarding, benign - Routine Extremities Exam Warm, well-perfused absent: cyanosis, clubbing, edema - Routine Skin Exam Present: intact - Routine Neurological Exam Present: alert, oriented X3, CN II-XII intact, moves 4 limbs to command and spontaneously. Assessment and Plan - Assessment and Plan Plan: Neuro/Psych: Chronic low back pain History of depression Chronic opioid use Acetaminophen 650 p.o. every 6 hours as needed fever Hydrocodone/acetaminophen 02/3251 tablet every 4 hours. 1-5 as needed. Is on 7.5/325 tablets at home Morphine sulfate 2 mg every 2 hours as needed pain 6 - 10 Continue trazodone 100 mg at night CV: Essential hypertension History of pacemaker Anemia continue aspirin 81 mg SS clopidogrel 75 mg daily Continue amlodipine 5 mg daily and metoprolol tartrate 25 mg twice daily for hypertension Holding losartan 100 mg daily and hydrochlorthiazide 25 mg daily Continue metoprolol tartrate 25 mg p.o. twice daily Continue atorvastatin 80 mg daily Resp: Right pneumothorax Status post #10 Surinamese pigtail catheter in ED, catheter not in thorax. #28 thoracostomy tube placed right side and lung reexpanded Currently on a 100% nonrebreather Chest tube to -20 cm H2O. Pigtail catheter removed GI: N.p.o. status pantoprazole for GI prophylaxis Docusate sodium/senna 1 tablet twice daily for bowel rest : Straight catheterization as needed Endo: Hypothyroidism Continue levothyroxine 75 mcg daily. Recheck TSH in a.m. Renal: Creatinine currently within normal Monitor urine output Accurate I's and O's Heme: Macrocytosis Monitor CBC daily. Follow trends. No indication for transfusion of blood products at this time. ID: Monitor for signs and symptomatology of infection Will receive 1 g of vancomycin x1 now. FEN: Replace electrolytes as clinically indicated MSK: History of rheumatoid arthritis Continue sulfasalazine 500 mg as scheduled. He is on Humira at home weekly 40 mg Access -Utilize peripheral IV. Central line if indicated Prophylaxis- -GI -pantoprazole -DVT SCD/hold heparin subcu Continue SCDs Overall impression: This woman developed a right-sided pneumothorax requiring chest tube insertion for reexpansion. She is breathing comfortably now and her lung is well expanded. Critical care time 35 minutes
--- NOTE | 2018-08-08 08:55 | P.PCN ---
Procedure: Diagnosis: Right pneumothorax Procedure: 1. Removal of pigtail and thoracostomy tube right chest, evacuation of subcutaneous clot 2. Insertion new #28 thoracostomy tube right thorax Narrative: Timeout performed. Patient properly identified. Patient requires thoracostomy site inspection because of continuous trickle bleeding following earlier tube insertion. Patient is on chronic antiplatelet therapy with Plavix and aspirin. The patient in ICU setting with usual monitoring devices in place. Patient known to be very tolerant to analgesia and sedation. Supplemental oxygen supplied and oxygen saturation easily maintained at greater than 95% throughout procedure. Versed 5 mg IV, morphine 6 mg IV pigtail catheter and thoracostomy tube right lateral chest wall both removed. Small amount of clotted blood was irrigated from the depths of the anterior wound and the skin edges were found to be oozing continuously from the pigtail site and the thoracostomy tube site. No specific arterial bleeding was identified. No blood was coming up from the depths by the ribs. A new #28 thoracostomy tube was then delivered using a Crile clamp and directed toward the apex. The skin edges were reapproximated around the tube using 3-0 silk suture. The chest tube was anchored in place using a 0 silk individual suture. This appeared to stop the bleeding from the skin edges. The tube was hooked to suction and a sterile dressing was applied. Chest x-ray is ordered will review.
[2018-08-08] MEDS: Metoprolol Tartrate 25 MG Tablet PO SCH ×2 (09:00→20:50)
[2018-08-08] MEDS: amLODIPine 5 MG Tablet PO SCH (09:01)
[2018-08-08] MEDS: Pantoprazole Inj 40 MG Vial IV.PUSH SCH (09:01)
--- NOTE | 2018-08-08 09:04 | XR ---
EXAM DATE: 08/08/2018 8:57 AM EDT AGE/SEX: 77 years / Female INDICATIONS: Right chest tube placement. Old tube was removed and a new tube was placed. CLINICAL DATA: This is the patient's subsequent encounter. Patient reports that signs and symptoms h ave been present for 2 days and indicates a pain score of 0/10. MEDICAL/SURGICAL HISTORY: . Hypertension. Peripheral artery disease. . Hysterectomy. Aortic v alve replacement. COMPARISON: [facility] – [place], CHEST 1V SINGLE AP, 08/07/2018. . FINDINGS: Single AP view chest. Right-sided chest tube remains in place. Left shoulder prosthesis. Dual-lead ca rdiac pacemaker. Pigtail chest catheter no longer seen on the right. There is evidence of a right tessa ed pneumothorax at the apex measuring 1.1 cm. Mild patchy atelectasis at the lung bases. CONCLUSION: 1 cm right lung apex pneumothorax. Right-sided chest tube in place. Electronically signed by: Efrain Mayo MD 08/08/2018 9:02 AM EDT
[2018-08-08] MEDS: Heparin - SQ 10,000 UNITS/ML Vial SQ SCH (11:09)
[2018-08-08] MEDS: Senna/Docusate Sodium 8.6/50 MG Tablet PO SCH ×2 (11:14→20:50)
[2018-08-08] MEDS: sulfaSALAzine 500 MG Tablet PO SCH ×2 (11:14→20:50)
[2018-08-08] MEDS: Sod Chloride 0.9% Inj 1,000 ML IV.CONT SCH ×2 (11:15→20:52)
--- NOTE | 2018-08-08 19:33 | MB ---
cc: Riky Scanlon MD DATE: 08/08/2018 REQUESTING PHYSICIAN: Dr. Almanza REASON FOR CONSULTATION: Pneumothorax. HISTORY OF PRESENT ILLNESS: Ms. Cervantes is a pleasant 77-year-old female with history of nicotine use, hypertension, PAT, patient was found to have lung lesion. She underwent CT-guided biopsy. She developed pneumothorax. A 10-Malian tube was placed, did not resolve the pneumothorax and she had a 20-Malian tube placed with resolution. SOCIAL HISTORY: She is . 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 She has a history of smoking. FAMILY HISTORY: She has 2 children. REVIEW OF SYSTEMS: She is normally active. Weight is stable. No seizure, stroke or epilepsy. PHYSICAL EXAMINATION: GENERAL: Reveals an elderly female, not in any acute distress. VITAL SIGNS: Blood pressure 132/74, heart rate 76, respirations 16, temperature 98.8. HEENT: Pupils are equal and reactive to light. Oral mucosa and nasal mucosa normal. NECK: Supple. JVP not raised. CHEST: She has right chest tube in place. CARDIOVASCULAR: S1, S2 normal. ABDOMEN: Benign. EXTREMITIES: No edema. IMPRESSION: 1. Pneumothorax, status post chest tube placement. 2. Bleeding from the chest tube site. 3. Paroxysmal tachycardia. 2. Hypertension. 3. Nicotine use. PLAN: The patient will be maintained on low-dose tube to the pleura to the suction. Supplement her oxygen. Continue pain medication. Repeat chest x-ray in the morning. Further treatment pending the course in the hospital. Thank you Dr. Almanza for this consult. Riky Scanlon MD ADA/ct/rr , 05:11 PM , 05:17 PM [facility]
[2018-08-08] MEDS: traZODone 50 MG Tablet PO SCH (20:51)
[2018-08-09] MEDS: Levothyroxine 75 MCG Tablet PO SCH (05:02)
[2018-08-09] MEDS: Chlorhexidine Gluconate 2% 1 Pack (2 Cloths) TOPICAL SCH (05:31)
[2018-08-09] MEDS: Metoprolol Tartrate 25 MG Tablet PO SCH ×2 (08:30→21:55)
[2018-08-09] MEDS: sulfaSALAzine 500 MG Tablet PO SCH ×2 (08:30→21:56)
[2018-08-09] MEDS: amLODIPine 5 MG Tablet PO SCH (08:31)
[2018-08-09] MEDS: Senna/Docusate Sodium 8.6/50 MG Tablet PO SCH ×2 (08:31→21:56)
[2018-08-09] MEDS: Pantoprazole Inj 40 MG Vial IV.PUSH SCH (08:32)
[2018-08-09] MEDS: Sod Chloride 0.9% Inj 1,000 ML IV.CONT SCH ×2 (08:32→21:56)
--- NOTE | 2018-08-09 09:58 | P.PNIM ---
Subjective Interval history: f/u; pneumothorax in no acute distress. pain is controlled. chest tube in place. BP trend noted. Physical Exam Vital signs: Vital Signs 08/08/18 11:00 08/08/18 11:03 08/08/18 11:18 Temperature Pulse Rate 91 H 92 H 85 Respiratory Rate 23 26 H 33 H Blood Pressure 139/64 165/70 H Pulse Oximetry 98 98 100 08/08/18 11:33 08/08/18 11:48 08/08/18 12:00 Temperature Pulse Rate 80 79 77 Respiratory Rate 13 13 13 Blood Pressure 142/63 H 148/67 H Pulse Oximetry 100 100 100 08/08/18 12:03 08/08/18 12:18 08/08/18 12:33 Temperature 98.0 F Pulse Rate 78 77 80 Respiratory Rate 15 22 26 H Blood Pressure 147/67 H 138/62 158/70 H Pulse Oximetry 100 100 100 08/08/18 12:48 08/08/18 13:00 08/08/18 13:03 Temperature Pulse Rate 79 76 78 Respiratory Rate 35 H 12 13 Blood Pressure 163/71 H 158/70 H Pulse Oximetry 100 100 100 08/08/18 13:18 08/08/18 13:33 08/08/18 13:48 Temperature Pulse Rate 78 85 86 Respiratory Rate 12 34 H 32 H Blood Pressure 155/70 H 159/75 H 167/72 H Pulse Oximetry 100 98 08/08/18 14:00 08/08/18 14:03 08/08/18 15:49 Temperature Pulse Rate 84 86 76 Respiratory Rate 25 H 41 H 16 Blood Pressure 132/74 Pulse Oximetry 99 95 98 08/08/18 18:00 08/08/18 20:00 08/09/18 00:00 Temperature 97.8 F 98.6 F 97.1 F L Pulse Rate 87 93 H 80 Respiratory Rate 16 18 18 Blood Pressure 153/65 H 152/67 H 169/70 H Pulse Oximetry 96 98 99 08/09/18 00:35 08/09/18 03:37 08/09/18 08:00 Temperature 98.1 F Pulse Rate 56 L 62 90 Respiratory Rate 16 16 18 Blood Pressure 195/83 H Pulse Oximetry 98 98 08/09/18 08:06 Temperature Pulse Rate 90 Respiratory Rate 19 Blood Pressure Pulse Oximetry 100 Intake & Output 11/12/2108/09/18 08/09/18 19:59 06:59 18:59 Intake Total Output Total Balance Weight Intake: IV NS Inj 1,000 ML @ 84 mls/hr IV. CONT .[id number] [facility] Rx#:[id number] Oral Output: Urine Chest Tube Drainage #1 Right Upper Anterior #2 Right Upper Anterior - Constitutional no acute distress - Routine Respiratory Exam Present: CTA bilaterally (chest tube in place.) - Routine Cardiovascular Exam Present: RRR - Routine Abdominal Exam Present: soft - Routine Extremities Exam Comments: no pedal edema. - Routine Neurological Exam Present: alert, oriented X3 Results - Labs CBC & Chem 7: 08/08/18 04:38 08/08/18 04:38 Laboratory Results - last 24 hr 08/08/18 08/09/18 08/09/18 12:04 01:08 EST 07:45 POC Glucose 130 H 130 H 95 Assessment and Plan - Plan Right pneumothorax Status post #10 Cyp[place] pigtail catheter in ED, catheter not in thorax. #28 thoracostomy tube placed right side and lung reexpanded Pigtail catheter removed. chest tube management per pulmonary. Chronic low back pain History of depression Chronic opioid use Acetaminophen 650 p.o. every 6 hours as needed fever Hydrocodone/acetaminophen 02/3251 tablet every 4 hours. 1-5 as needed. Is on 7.5/325 tablets at home Morphine sulfate 2 mg every 2 hours as needed pain 6 - 10 Continue trazodone 100 mg at night Essential hypertension History of pacemaker Anemia continue aspirin 81 mg SS clopidogrel 75 mg daily Continue amlodipine; will increase the dose to 10 mg daily and continue metoprolol tartrate 25 mg twice daily for hypertension Holding losartan 100 mg daily and hydrochlorthiazide 25 mg daily Hypothyroidism Continue levothyroxine 75 mcg daily. Recheck TSH in a.m. Macrocytosis Monitor CBC daily. Follow trends. No indication for transfusion of blood products at this time. History of rheumatoid arthritis Continue sulfasalazine 500 mg as scheduled. He is on Humira at home weekly 40 mg Prophylaxis- -GI -pantoprazole -DVT SCD/hold heparin subcu Continue SCDs Discharge Planning: when cleared by pulmonary.
[2018-08-09] MEDS ORDERED: amLODIPine 5 MG Tablet PO ONE (10:30)
--- NOTE | 2018-08-09 17:27 | P.PNPL ---
Subjective Interval history: 77 YOWF with lung bx, Ptx Chest tube in place No airleak Denies CP or SOB Physical Exam Vital signs: Vital Signs 08/08/18 20:00 08/09/18 00:00 08/09/18 00:35 Temperature 98.6 F 97.1 F L Pulse Rate 93 H 80 56 L Respiratory Rate 18 18 16 Blood Pressure 152/67 H 169/70 H Pulse Oximetry 98 99 98 08/09/18 03:37 08/09/18 08:00 08/09/18 08:06 Temperature 98.1 F Pulse Rate 62 90 90 Respiratory Rate 16 18 19 Blood Pressure 195/83 H Pulse Oximetry 98 100 08/09/18 11:48 08/09/18 12:00 08/09/18 15:40 Temperature 98.2 F Pulse Rate 82 80 90 Respiratory Rate 19 18 18 Blood Pressure 137/67 Pulse Oximetry 97 08/09/18 16:00 Temperature 98.9 F Pulse Rate 92 H Respiratory Rate 18 Blood Pressure 145/64 H Pulse Oximetry 93 L Intake & Output 08/08/18 08/09/18 08/09/18 19:59 06:59 18:59 Intake Total Output Total Balance Weight Intake: IV NS Inj 1,000 ML @ 84 mls/hr IV. CONT .[id number] [facility] Rx#:[id number] Oral Output: Urine Chest Tube Drainage #1 Right Upper Anterior #2 Right Upper Anterior GENERAL: Elderly WF, NAD SKIN: Warm and dry. HEAD: Normocephalic. EYES: No scleral icterus. No injection or drainage. NECK: Supple, trachea midline. No JVD or lymphadenopathy. CARDIOVASCULAR: Regular rate and rhythm without murmurs, gallops, or rubs. RESPIRATORY: Breath sounds equal bilaterally. No accessory muscle use. Rt chest tube in place GASTROINTESTINAL: Abdomen soft, non-tender, nondistended. MUSCULOSKELETAL: No cyanosis, or edema. BACK: Nontender without obvious deformity. No CVA tenderness. Assessment and Plan - Plan IMPRESSION: 1. Pneumothorax, status post chest tube placement. 2. Bleeding from the chest tube site. 3. Paroxysmal tachycardia. 2. Hypertension. 3. Nicotine use. PLAN: Chest tube to suction CXR If no PTX will clamp chest tube.
[2018-08-09] MEDS: traZODone 50 MG Tablet PO SCH (21:55)
--- NOTE | 2018-08-10 00:33 | ECG ---
Date Performed: 08/07/2018 Time Performed: 17:03:30 PTAGE: 77 years EKG: Sinus rhythm PREVIOUS TRACING : 08/07/2018 17.03 Since the previous tracing, no significant change not ed DOCTOR: Jairo Saab Interpretating Date/Time 08/10/2018 00:31:27
[2018-08-10] MEDS: Levothyroxine 75 MCG Tablet PO SCH (05:32)
[2018-08-10] MEDS: Chlorhexidine Gluconate 2% 1 Pack (2 Cloths) TOPICAL SCH (05:37)
--- NOTE | 2018-08-10 06:58 | XR ---
EXAM DATE: 08/10/2018 6:55 AM EST AGE/SEX: 77 years / Female INDICATIONS: Short of breath, evaluate pneumothorax and chest tube CLINICAL DATA: This is the patient's subsequent encounter. Patient reports that signs and symptoms h ave been present for 4 - 6 days and indicates a pain score of 4/10. MEDICAL/SURGICAL HISTORY: Cardiovascular disease. pneumothorax Pacemaker. Chest tube, right. COMPARISON: [facility] – [place]ST 1V SINGLE AP, 08/08/2018. . FINDINGS: A pacing implement is present with control pack over left upper chest. Right thoracostomy tube remain s in place. There is minimal residual apical pneumothorax. Persistent mild bibasilar parenchymal opac ities. Cardiac contours are unchanged. Prosthetic aortic valve again noted. Left shoulder arthroplast y. CONCLUSION: Minimal residual right apical pneumothorax. Stable mild basilar parenchymal opacities. Electronically signed by: J Luis Cox MD 08/10/2018 6:57 AM EST
[2018-08-10] MEDS: Sod Chloride 0.9% Inj 1,000 ML IV.CONT SCH ×2 (08:46→19:16)
[2018-08-10] MEDS: amLODIPine 5 MG Tablet PO SCH (08:47)
[2018-08-10] MEDS: Metoprolol Tartrate 25 MG Tablet PO SCH ×2 (08:48→20:30)
[2018-08-10] MEDS: Pantoprazole Inj 40 MG Vial IV.PUSH SCH (08:49)
[2018-08-10] MEDS: sulfaSALAzine 500 MG Tablet PO SCH ×2 (08:49→20:29)
[2018-08-10] MEDS: Senna/Docusate Sodium 8.6/50 MG Tablet PO SCH ×2 (08:49→20:29)
--- NOTE | 2018-08-10 10:50 | P.PNIM ---
Subjective Interval history: f/u; pneumothorax overall looks comfortable. denies sob. has some back pain. no fever. Physical Exam Vital signs: Vital Signs 08/09/18 11:48 08/09/18 12:00 08/09/18 15:40 Temperature 98.2 F Pulse Rate 82 80 90 Respiratory Rate 19 18 18 Blood Pressure 137/67 Pulse Oximetry 97 08/09/18 16:00 08/09/18 19:00 08/09/18 19:53 Temperature 98.9 F Pulse Rate 92 H 92 H Respiratory Rate 18 18 Blood Pressure 145/64 H Pulse Oximetry 93 L 96 95 08/09/18 20:00 08/10/18 00:00 08/10/18 08:00 Temperature 98.5 F 97.3 F L 97.9 F Pulse Rate 109 H 81 82 Respiratory Rate 18 18 18 Blood Pressure 175/72 H 175/77 H 186/75 H Pulse Oximetry 96 96 97 08/10/18 08:52 08/10/18 08:55 Temperature Pulse Rate 80 Respiratory Rate 14 Blood Pressure Pulse Oximetry 97 Intake & Output 08/09/18 08/10/18 08/10/18 18:59 06:59 18:59 Intake Total 1600 / 1600 1000 / 1000 1000 / 1000 Output Total 30 / 30 450 / 450 Balance 1570 / 1570 550 / 550 1000 / 1000 Weight 69.7 kg Intake: IV 1000 / 1000 1000 / 1000 NS Inj 1,000 ML @ 84 mls/hr IV. 1000 / 1000 1000 / 1000 CONT .[id number] [facility] Rx#:[id number] Oral 1600 / 1600 Output: Urine 400 / 400 Chest Tube Drainage 30 / 30 50 / 50 #2 Right Upper Anterior 30 / 30 50 / 50 Other: # Voids 3 - Constitutional no acute distress - Routine Respiratory Exam Present: CTA bilaterally Comments: chest tube in place. - Routine Cardiovascular Exam Present: RRR - Routine Abdominal Exam Present: soft - Routine Extremities Exam Comments: no pedal edema. - Routine Neurological Exam Present: alert, oriented X3 Results - Labs CBC & Chem 7: 08/08/18 04:38 08/08/18 04:38 Laboratory Results - last 24 hr 08/09/18 12:13 POC Glucose 111 H - Imaging Impressions Chest X-Ray 08/10/18 07:00 CONCLUSION: Minimal residual right apical pneumothorax. Stable mild basilar parenchymal opacities. Assessment and Plan - Plan Right pneumothorax Status post #10 [place]ri[place] pigtail catheter in ED, catheter not in thorax. #28 thoracostomy tube placed right side and lung reexpanded Pigtail catheter removed. chest tube management per pulmonary. Chronic low back pain History of depression Chronic opioid use Acetaminophen 650 p.o. every 6 hours as needed fever Hydrocodone/acetaminophen 02/3251 tablet every 4 hours. 1-5 as needed. Is on 7.5/325 tablets at home Morphine sulfate 2 mg every 2 hours as needed pain 6 - 10 Continue trazodone 100 mg at night Essential hypertension History of pacemaker Anemia continue aspirin 81 mg / clopidogrel 75 mg daily Continue amlodipine and continue metoprolol tartrate 25 mg twice daily for hypertension resume losartan 100 mg daily and hold hydrochlorthiazide 25 mg daily Hypothyroidism Continue levothyroxine 75 mcg daily. Recheck TSH in a.m. Macrocytosis Monitor CBC daily. Follow trends. No indication for transfusion of blood products at this time. History of rheumatoid arthritis Continue sulfasalazine 500 mg as scheduled. He is on Humira at home weekly 40 mg Prophylaxis- -GI -pantoprazole -DVT SCD/hold heparin subcu Continue SCDs Discharge Planning: when cleared by pulmonary.
--- NOTE | 2018-08-10 17:20 | XR ---
EXAM DATE: 08/10/2018 5:12 PM EST AGE/SEX: 77 years / Female INDICATIONS: Pneumothorax, pre chest tube removal. CLINICAL DATA: This is the patient's subsequent encounter. Patient reports that signs and symptoms h ave been present for 3 days and indicates a pain score of 5/10. MEDICAL/SURGICAL HISTORY: . Hypertension. Peripheral artery disease. Hysterectomy. . Aortic va lve replacement. COMPARISON: [facility] – [place], CHEST 1V SINGLE AP, 08/10/2018. . FINDINGS: The very small residual right apical pneumothorax is stable. Right chest tube remains in good positio n. Lungs are otherwise well-expanded and clear without significant airspace disease. CONCLUSION: Stable chest with tiny right apical residual pneumothorax. Electronically signed by: Andre Mas MD 08/10/2018 5:19 PM EST
--- NOTE | 2018-08-10 19:21 | P.PNPL ---
Subjective Interval history: 77 YOWF with lung bx, Ptx Chest tube in place Denies CP or SOB Chest tube clamped, CXr small apical ptx Physical Exam Vital signs: Vital Signs 08/09/18 19:53 08/09/18 20:00 08/10/18 00:00 Temperature 98.5 F 97.3 F L Pulse Rate 92 H 109 H 81 Respiratory Rate 18 18 18 Blood Pressure 175/72 H 175/77 H Pulse Oximetry 95 96 96 08/10/18 08:00 08/10/18 08:52 08/10/18 08:55 Temperature 97.9 F Pulse Rate 82 80 Respiratory Rate 18 14 Blood Pressure 186/75 H Pulse Oximetry 97 97 08/10/18 11:34 08/10/18 12:00 08/10/18 16:00 Temperature 97.7 F 97.8 F Pulse Rate 76 77 80 Respiratory Rate 15 18 18 Blood Pressure 156/67 H 118/58 L Pulse Oximetry 99 95 Intake & Output 08/10/18 08/10/18 08/11/18 06:59 18:59 06:59 Intake Total 1000 / 1000 1000 / 1000 1000 / 1000 Output Total 450 / 450 20 / 20 Balance 550 / 550 980 / 980 1000 / 1000 Weight 69.7 kg Intake: IV 1000 / 1000 1000 / 1000 1000 / 1000 NS Inj 1,000 ML @ 84 mls/hr IV. 1000 / 1000 1000 / 1000 1000 / 1000 CONT .[id number] [facility] Rx#:[id number] Output: Urine 400 / 400 Chest Tube Drainage 50 / 50 20 / 20 #2 Right Upper Anterior 50 / 50 20 / 20 Other: # Voids 4 GENERAL: Elderly WF, anxious SKIN: Warm and dry. HEAD: Normocephalic. EYES: No scleral icterus. No injection or drainage. NECK: Supple, trachea midline. No JVD or lymphadenopathy. CARDIOVASCULAR: Regular rate and rhythm without murmurs, gallops, or rubs. RESPIRATORY: Breath sounds equal bilaterally. No accessory muscle use. Rt chest tube in place GASTROINTESTINAL: Abdomen soft, non-tender, nondistended. MUSCULOSKELETAL: No cyanosis, or edema. BACK: Nontender without obvious deformity. No CVA tenderness. Assessment and Plan - Plan IMPRESSION: 1. Pneumothorax, status post chest tube placement. 2. Bleeding from the chest tube site. 3. Paroxysmal tachycardia. 2. Hypertension. 3. Nicotine use. PLAN: Clamp chest tube CXR in AM If no ptx, will dc chest tube Advised pt to call RN if any sob or CP while chest tube is clamped
[2018-08-10] MEDS: traZODone 50 MG Tablet PO SCH (20:30)
[2018-08-11] MEDS: Levothyroxine 75 MCG Tablet PO SCH (05:14)
[2018-08-11] MEDS: Chlorhexidine Gluconate 2% 1 Pack (2 Cloths) TOPICAL SCH (05:43)
--- NOTE | 2018-08-11 06:11 | XR ---
EXAM DATE: 08/11/2018 6:04 AM EST AGE/SEX: 77 years / Female INDICATIONS: Short of breath, evaluate right side chest tube and pneumothorax CLINICAL DATA: This is the patient's subsequent encounter. Patient reports that signs and symptoms h ave been present for 1 week and indicates a pain score of 1/10. MEDICAL/SURGICAL HISTORY: . pneumothorax Chest tube, right. COMPARISON: [facility], CHEST 1V SINGLE AP, 08/10/2018. . FINDINGS: A pacing implement is present with control pack over left upper chest. Right thoracostomy tube remain s in place. Minimal stable right apical pneumothorax. Mild perihilar and basilar parenchymal opacity likely exacerbated by expiratory technique. Cardiac contours are unchanged with note of prosthetic ao rtic valve. CONCLUSION: Grossly stable chest appearance accounting for differences in inspiratory effort Electronically signed by: JL uis Cox MD 08/11/2018 6:10 AM EST
--- NOTE | 2018-08-11 09:23 | P.PNIM ---
Subjective Interval history: f/u; pneumothorax in no acute distress. no sob and pain is controlled. no new complaints. Physical Exam Vital signs: Vital Signs 08/10/18 11:34 08/10/18 12:00 08/10/18 16:00 Temperature 97.7 F 97.8 F Pulse Rate 76 77 80 Respiratory Rate 15 18 18 Blood Pressure 156/67 H 118/58 L Pulse Oximetry 99 95 08/10/18 20:00 08/10/18 20:54 08/10/18 22:09 Temperature 97.9 F Pulse Rate 90 87 Respiratory Rate 17 17 18 Blood Pressure 140/65 Pulse Oximetry 95 95 08/11/18 00:00 08/11/18 07:45 08/11/18 08:01 Temperature 97.2 F L 97.6 F Pulse Rate 81 82 73 Respiratory Rate 18 20 16 Blood Pressure 131/60 140/61 Pulse Oximetry 96 94 L 97 Intake & Output 08/10/18 08/11/18 08/11/18 18:59 06:59 18:59 Intake Total 1000 / 1000 1120 / 1120 Output Total 20 / 20 500 / 500 Balance 980 / 980 620 / 620 Weight 71.4 kg Intake: IV 1000 / 1000 1000 / 1000 NS Inj 1,000 ML @ 84 mls/hr IV. 1000 / 1000 1000 / 1000 CONT .[id number] [facility] Rx#:[id number] Oral 120 / 120 Output: Urine 500 / 500 Chest Tube Drainage 20 / 20 0 / 0 #1 Right Upper Anterior 0 / 0 #2 Right Upper Anterior 20 / 20 Other: # Voids 4 - Constitutional no acute distress - Routine Respiratory Exam Present: CTA bilaterally - Routine Cardiovascular Exam Present: RRR - Routine Abdominal Exam Present: soft - Routine Extremities Exam Comments: no pedal edema. - Routine Neurological Exam Present: alert, oriented X3 Results - Labs CBC & Chem 7: 08/08/18 04:38 08/08/18 04:38 - Imaging Impressions Chest X-Ray 08/10/18 00:00 CONCLUSION: Stable chest with tiny right apical residual pneumothorax. Chest X-Ray 08/11/18 07:00 CONCLUSION: Grossly stable chest appearance accounting for differences in inspiratory effort Assessment and Plan - Plan Right pneumothorax Status post #10 [place] pigtail catheter in ED, catheter not in thorax. #28 thoracostomy tube placed right side and lung reexpanded Pigtail catheter removed. chest tube management per pulmonary. CXR today stable. Chronic low back pain History of depression Chronic opioid use Acetaminophen 650 p.o. every 6 hours as needed fever Hydrocodone/acetaminophen 02/3251 tablet every 4 hours. 1-5 as needed. Is on 7.5/325 tablets at home Morphine sulfate 2 mg every 2 hours as needed pain 6 - 10 Continue trazodone 100 mg at night Essential hypertension History of pacemaker Anemia continue aspirin 81 mg / clopidogrel 75 mg daily Continue amlodipine and continue metoprolol tartrate 25 mg twice daily for hypertension resume losartan and hydrochlorthiazide upon discharge. Hypothyroidism Continue levothyroxine 75 mcg daily. Recheck TSH in a.m. Macrocytosis Monitor CBC daily. Follow trends. No indication for transfusion of blood products at this time. History of rheumatoid arthritis Continue sulfasalazine 500 mg as scheduled. He is on Humira at home weekly 40 mg Prophylaxis- -GI -pantoprazole -DVT SCD/hold heparin subcu Continue SCDs Discharge Planning: home- when cleared by pulmonary.
[2018-08-11] MEDS: sulfaSALAzine 500 MG Tablet PO SCH (10:00)
[2018-08-11] MEDS: Senna/Docusate Sodium 8.6/50 MG Tablet PO SCH (10:02)
[2018-08-11] MEDS: amLODIPine 5 MG Tablet PO SCH (10:02)
[2018-08-11] MEDS: Pantoprazole Inj 40 MG Vial IV.PUSH SCH (10:03)
[2018-08-11] MEDS: Metoprolol Tartrate 25 MG Tablet PO SCH (10:03)
--- NOTE | 2018-08-11 11:17 | P.PNPL ---
Subjective Interval history: 77 YOWF with lung bx, Ptx Chest tube in place Denies CP or SOB CXR stable minimal ptx Chest tube removed Bx Well diff adenocarcinoma Physical Exam Vital signs: Vital Signs 08/10/18 11:34 08/10/18 12:00 08/10/18 16:00 Temperature 97.7 F 97.8 F Pulse Rate 76 77 80 Respiratory Rate 15 18 18 Blood Pressure 156/67 H 118/58 L Pulse Oximetry 99 95 08/10/18 20:00 08/10/18 20:54 08/10/18 22:09 Temperature 97.9 F Pulse Rate 90 87 Respiratory Rate 17 17 18 Blood Pressure 140/65 Pulse Oximetry 95 95 08/11/18 00:00 08/11/18 07:45 08/11/18 08:01 Temperature 97.2 F L 97.6 F Pulse Rate 81 82 73 Respiratory Rate 18 20 16 Blood Pressure 131/60 140/61 Pulse Oximetry 96 94 L 97 08/11/18 11:02 Temperature 98 F Pulse Rate 90 Respiratory Rate 18 Blood Pressure 166/71 H Pulse Oximetry 94 L Intake & Output 08/10/18 08/11/18 08/11/18 18:59 06:59 18:59 Intake Total 1000 / 1000 1120 / 1120 Output Total 20 / 20 500 / 500 Balance 980 / 980 620 / 620 Weight 71.4 kg Intake: IV 1000 / 1000 1000 / 1000 NS Inj 1,000 ML @ 84 mls/hr IV. 1000 / 1000 1000 / 1000 CONT .[id number] [facility] Rx#:[id number] Oral 120 / 120 Output: Urine 500 / 500 Chest Tube Drainage 20 / 20 0 / 0 #1 Right Upper Anterior 0 / 0 #2 Right Upper Anterior 20 / 20 Other: # Voids 4 GENERAL: Elderly WF, NAD SKIN: Warm and dry. HEAD: Normocephalic. EYES: No scleral icterus. No injection or drainage. NECK: Supple, trachea midline. No JVD or lymphadenopathy. CARDIOVASCULAR: Regular rate and rhythm without murmurs, gallops, or rubs. RESPIRATORY: Breath sounds equal bilaterally. No accessory muscle use. GASTROINTESTINAL: Abdomen soft, non-tender, nondistended. MUSCULOSKELETAL: No cyanosis, or edema. BACK: Nontender without obvious deformity. No CVA tenderness. Assessment and Plan - Plan IMPRESSION: 1. Pneumothorax, status post chest tube placement. 2. Bleeding from the chest tube site. 3. Paroxysmal tachycardia. 2. Hypertension. 3. Nicotine use. 6. Well diff adenoca lung PLAN: Chest tube removed Rpt CXR If no ptx, dc home DW pt bx result Will FU in office 11l13 and plan further nick and treatment
--- NOTE | 2018-08-11 12:01 | P.DS ---
Date of admission: 08/07/18 19:20 Primary care physician: UNKNOWN Brief History from admission: This is a 77-year-old female. Admission 08/07/2018 past medical includes breast cancer, hypertension, hypothyroidism. Patient presented to [facility] acute onset of shortness of breath. On 08/04, patient had a lung biopsy by Dr. Khalil.. She states that today she started to have some shortness of breath and was told by her physician to come here. No chest pain. No lightheadedness no abdominal pain. Chest x-ray revealed right pneumothorax. A 10 American pigtail catheter was placed without resolution of pneumothorax. I placed a 20 American chest tube with essential resolution.. Patient received 10 mg midazolam and 150 mg of fentanyl for the procedure. She is currently on her percent nonrebreather. Hypertensive. DS: Summary Hospital Course: Right pneumothorax Status post #10 American pigtail catheter in ED, catheter not in thorax. #28 thoracostomy tube placed right side and lung reexpanded Pigtail catheter removed. chest tube management per pulmonary. CXR today stable. Chronic low back pain History of depression Chronic opioid use Acetaminophen 650 p.o. every 6 hours as needed fever Hydrocodone/acetaminophen 02/3251 tablet every 4 hours. 1-5 as needed. Is on 7.5/325 tablets at home Morphine sulfate 2 mg every 2 hours as needed pain 6 - 10 Continue trazodone 100 mg at night Essential hypertension History of pacemaker Anemia continue aspirin 81 mg / clopidogrel 75 mg daily Continue amlodipine and continue metoprolol tartrate 25 mg twice daily for hypertension resume losartan and hydrochlorthiazide upon discharge. Hypothyroidism Continue levothyroxine 75 mcg daily. Recheck TSH in a.m. Macrocytosis f/u as outpatient. History of rheumatoid arthritis Continue sulfasalazine 500 mg as scheduled. He is on Humira at home weekly 40 mg - Time Spent with Patient Total time spent providing and/or coordinating discharge services: Less than 30 minutes - Quality: VTE Deep Vein Thrombosis/Pulmonary Embolism Present on Admission: No Exam Vital signs: Vital Signs 08/10/18 16:00 08/10/18 20:00 08/10/18 20:54 Temperature 97.8 F 97.9 F Pulse Rate 80 90 87 Respiratory Rate 18 17 17 Blood Pressure 118/58 L 140/65 Pulse Oximetry 95 95 95 08/10/18 22:09 08/11/18 00:00 08/11/18 07:45 Temperature 97.2 F L 97.6 F Pulse Rate 81 82 Respiratory Rate 18 18 20 Blood Pressure 131/60 140/61 Pulse Oximetry 96 94 L 08/11/18 08:01 08/11/18 11:02 Temperature 98 F Pulse Rate 73 90 Respiratory Rate 16 18 Blood Pressure 166/71 H Pulse Oximetry 97 94 L Intake & Output 08/10/18 08/11/18 08/11/18 18:59 06:59 18:59 Intake Total 1000 / 1000 1120 / 1120 Output Total 20 / 20 500 / 500 Balance 980 / 980 620 / 620 Weight 71.4 kg Intake: IV 1000 / 1000 1000 / 1000 NS Inj 1,000 ML @ 84 mls/hr IV. 1000 / 1000 1000 / 1000 CONT .[id number] THOMAS Rx#:[id number] Oral 120 / 120 Output: Urine 500 / 500 Chest Tube Drainage 20 / 20 0 / 0 #1 Right Upper Anterior 0 / 0 #2 Right Upper Anterior 20 / 20 Other: # Voids 4 - Constitutional no acute distress - Routine Respiratory Exam Present: CTA bilaterally - Routine Cardiovascular Exam Present: RRR - Routine Abdominal Exam Present: soft - Routine Extremities Exam Comments: no pedal edema. - Routine Neurological Exam Present: alert, oriented X3 Results Procedures completed during hospitalization: chest tube placement. - Impressions ITS Impressions Chest CT 08/08/18 06:00 CONCLUSION: 1. Large bore right thoracostomy tube extends into the upper lobe parenchyma 2. Pigtail tube is external to the chest along the posterior ribs deep to the scapula 3. Small residual anterior and medial right base pneumothorax. Discharge Plan - Discharge Disposition Patient Disposition: 01 Discharge Home - Discharge Condition Condition: Fair - Discharge Order Discharge Orders: Discharge Order (Routine); Ordered 08/11/18 Ordered By: Omar Bell - Physicians Team Primary Care Provider: UNKNOWN, Attending Provider: Omar Bell Other Providers: Riky Scanlon MD ; Sadie Noel
--- NOTE | 2018-08-11 12:02 | XR ---
EXAM DATE: 08/11/2018 11:49 AM EST AGE/SEX: 77 years / Female INDICATIONS: Chest tube removal. CLINICAL DATA: This is the patient's initial encounter. Patient reports that signs and symptoms have been present for 4 - 6 days and indicates a pain score of 0/10. MEDICAL/SURGICAL HISTORY: Hypertension. peripheral arterial disease . lung mass surgery COMPARISON: [facility] [place], CHEST 1V SINGLE AP, 08/11/2018. . FINDINGS: No definite pneumothorax is seen for technique. Right chest tube has been removed. Left subclavian pa cer wires are present with tips in the right atrium and right ventricle. There is mild prominence of the perivascular markings in the right infrahilar location without focal consolidation. CONCLUSION: Mild prominence of the perivascular markings mainly on the right side without definite pneumothorax. Electronically signed by: Gideon Majano MD 08/11/2018 12:01 PM EST
[2018-08-11] MEDS ORDERED: ALPRAZolam 0.25 MG Tablet PO ONE (12:05)
[2018-08-11] MEDS: Sod Chloride 0.9% Inj 1,000 ML IV.CONT SCH (13:47)
--- NOTE | 2018-08-11 14:01 | P.PNADD ---
Addendum to Inpatient Note Reason for Addendum: Additional Documentation (chest tube has been removed- repeated CXR with no pneumothorax; will dc home with pcp and ; previosuly d/w .)
== END 2018-08-11 14:51 | disposition home or self-care (01) ==
LOC: NEPE 16:35 → NEDA 19:20 → N03 20:45 → NEDA 20:51 → N07 08-08 17:15
PROVIDERS: ADMIT Internal Medicine; ATTEND Internal Medicine